=== PATIENT | female | born 1945 | race Caucasian/White ===

== ENCOUNTER → 2016-10-02 | Outpatient (CLI) | payer OTHER ==
[~2016-10-02] MED LIST: APIX1TAB3 PO; CHOL20005 PO; CLC100 PO; CLON0.1T12 PO; CLON0.2T11 PO; CTP/1 PO; CTP1 PO; DILT-115 PO; DILT120C67 PO; DOCU100C31 PO; ELQ25 PO; ENOX1INJ8 SQ; HYDR25TA5 PO; MAGN1SOL7 PO; MCRK20 PO; METO100T14 PO; METO50TA16 PO; OXAP600T PO; PARO1TAB27 PO; POLY1POW2 PO; RXC5 PO; SENN-65 PO; SLWMEC PO; SPIR25TA PO; TRAM-10 PO; ULT50X PO; [UNRECOGNIZED DRUG - CODE] PO; magnesium chloride PO; spironolactone
--- NOTE | 2016-10-03 09:44 | DIAGNOSTIC IMAGING REPORT ---
CT LUNG SCREENING, LOW DOSE WITH COMPUTER-AIDED DETECTION (CAD) CLINICAL HISTORY: ABN FINDING Follow-up pulmonary nodules. COMPARISON STUDY: Abdominal CT dated 03/31/2013. Chest CT dated 06/19/2016. CT DOSE: 87.69 mGy.cm TECHNIQUE: Low-dose helical CT was acquired without intravenous contrast from lung apices to bases and reconstructed at 2.5 mm every 2 mm. CAD was utilized for this study. FINDINGS: Thyroid: Imaged portions of the thyroid gland are normal in appearance. Thoracic aorta: There is evidence carotid calcification of the thoracic aorta, which is normal in caliber and demonstrates standard 3-vessel arch anatomy. Heart: The heart is mildly enlarged and without pericardial effusion. There are scattered coronary artery calcifications. There is diminished attenuation of the cardiac blood pool as compared to the myocardium suggesting anemia. The main pulmonary arteries are mildly dilated suggesting pulmonary artery hypertension. Lungs and pleural spaces: Advanced emphysema is again noted. There is no airspace consolidation typical for pneumonia or pleural effusion. Foci of scarring are again seen in the right middle lobe and lingula. There is a 10 mm pulmonary nodule in the left lower lobe along the posterior cardiac border seen on image #171. This measures 10 mm. There is a 2 mm left lower lobe nodule seen on image #80, and a 3 mm right lower lobe nodule seen on image #67. Scattered 1 to 2 mm nodules are noted throughout the remaining right upper lobe. These are all unchanged from previous. No new nodules are seen. The trachea and central airways are clear. Mediastinum: There is no mediastinal lymphadenopathy. Mandy: Not well assessed without IV contrast. Axilla: Surgical clips are noted in the both axillae and both breasts. There is no axillary lymphadenopathy. Upper abdomen: There is a small hiatal hernia. Hepatic steatosis is observed. An indeterminant 2.3 cm lesion is noted in the left lobe of the liver this is unchanged [address] and is of doubtful significance. Skeletal structures: The skeletal structures are osteopenic. Degenerative change and hyperkyphosis is noted throughout the thoracic spine. There are no lytic or blastic osseous lesions. IMPRESSION: 1. Cardiomegaly and emphysema. 2. Scattered pulmonary nodules measuring up to 10 mm are unchanged in size and distribution from 06/19/2016. Continued follow-up is recommended. 3. No new pulmonary nodules are identified. 4. Additional changes as above. CAD FINDINGS: Nodule 1 Category: 4A Nodule 1 Status: Stable Nodule 1 Description: Solid Nodule 1 Lesion ID: 6 Nodule 1 Slice Number: 67 Nodule 1 Volume (mm3): 377 Nodule 1 Major Oden mm: 10.0 Nodule 1 Minor Oden mm: 7.5 Nodule 2 Status: Stable Nodule 2 Description: Solid Nodule 2 Lesion ID: 8 Nodule 2 Slice Number: 119 Nodule 2 Volume (mm3): 20 Nodule 2 Major Oden mm: 3.7 Nodule 2 Minor Oden mm: 2.5 Nodule 3 Category: 2 Nodule 3 Status: Stable Nodule 3 Description: Solid Nodule 3 Lesion ID: 7 Nodule 3 Slice Number: 113 Nodule 3 Volume (mm3): 9 Nodule 3 Major Oden mm: 2.9 Nodule 3 Minor Oden mm: 2.2 Overall Lung RADS Category: 4A Lung RADS Management Recommendation: Lung-RADS 4A: Continue screening in 3 months. Lung RADS Follow Up Date: 2017-12-30 Lung RADS Nodule ID: [id number] Electronically signed by: Valeriano Alvarado M.D. 10/03/2016 9:42 AM Dictated Date/Time: 10/02/2016 4:53 PM
== END | disposition home or self-care (01) ==
LOC: C.CTS 16:27
PROVIDERS: ATTEND Family Medicine
DX: R91.8 Other nonspecific abnormal finding of lung field (principal); I51.7 Cardiomegaly; J43.9 Emphysema, unspecified

== ENCOUNTER → 2016-10-03 | Outpatient (CLI) | payer OTHER | END | disposition home or self-care (01) | LOC: C.RDSM 16:34 | PROVIDERS: ATTEND Physical Medicine & Rehabilitation Sports Medicine | DX: M17.12 Unilateral primary osteoarthritis, left knee (principal); Z96.659 Presence of unspecified artificial knee joint ==

== ENCOUNTER → 2016-12-26 | Outpatient (CLI) | payer OTHER | END | disposition home or self-care (01) | LOC: C.LAB1850 15:57 | PROVIDERS: ATTEND Internal Medicine Infectious Disease | DX: A49.02 Methicillin resistant Staphylococcus aureus infection, unspecified site (principal) ==

== ENCOUNTER → 2017-01-05 | Outpatient (CLI) | payer OTHER | END | disposition home or self-care (01) | LOC: C.LAB1850 14:47 | PROVIDERS: ATTEND Internal Medicine Infectious Disease | DX: A49.02 Methicillin resistant Staphylococcus aureus infection, unspecified site (principal) ==

== ENCOUNTER → 2017-01-05 | Outpatient (CLI) | payer OTHER ==
--- NOTE | 2017-01-05 15:01 | DIAGNOSTIC IMAGING REPORT ---
CT LUNG SCREENING, LOW DOSE WITH COMPUTER-AIDED DETECTION (CAD) CLINICAL HISTORY: Pulmonary nodule on low-dose lung screening study. Follow-up examination. COMPARISON STUDY: 10/02/2016 CT DOSE: 81.26 mGy.cm TECHNIQUE: Low-dose helical CT was acquired without intravenous contrast from lung apices to bases and reconstructed at 2.5 mm every 2 mm. CAD was utilized for this study. FINDINGS: Thyroid: Imaged portions of the thyroid gland are normal in appearance. Thoracic aorta: The thoracic aorta is normal in course and caliber, noting standard 3 vessel arch anatomy. Heart: The heart is mildly enlarged Lungs and pleural spaces: There are multiple bilateral pulmonary nodules, the largest of which measures 8.5 mm in diameter and is visualized on image #[id number]. These nodules remain unchanged in size when compared the preceding study. Mediastinum: There is no mediastinal lymphadenopathy. Mandy: Clear. Axilla: There are postsurgical changes present within the left breast. Surgical clips are visualized in both axillary regions. Upper abdomen: Partially visualized upper abdominal viscera is within normal limits. Skeletal structures: There are no lytic or blastic osseous lesions. IMPRESSION: Multiple bilateral subcentimeter pulmonary nodules which remain stable. Emphysema. 12 month follow-up is recommended. CAD FINDINGS: Nodule 1 Category: 2 Nodule 1 Status: Stable Nodule 1 Description: Solid Nodule 1 Lesion ID: 6 Nodule 1 Slice Number: [id number] Nodule 1 Volume (mm3): 326 Nodule 1 Major Arnold mm: 11.7 Nodule 1 Minor Arnold mm: 7.4 Nodule 2 Category: 2 Nodule 2 Status: Stable Nodule 2 Description: Solid Nodule 2 Lesion ID: 8 Nodule 2 Slice Number: [id number] Nodule 2 Volume (mm3): 19 Nodule 2 Major Arnold mm: 4.6 Nodule 2 Minor Arnold mm: 3.0 Nodule 3 Category: 2 Nodule 3 Status: New Nodule 3 Description: Solid Nodule 3 Lesion ID: 9 Nodule 3 Slice Number: 130 Nodule 3 Volume (mm3): 10 Nodule 3 Major Arnold mm: 3.6 Nodule 3 Minor Arnold mm: 3.0 Overall Lung RADS Category: 2 Lung RADS Management Recommendation: Lung-RADS 2: Continue annual screening in 12 months. Lung RADS Follow Up Date: 2018-01-05 Lung RADS Nodule ID: [id number] Electronically signed by: Bill Campbell M.D. 01/05/2017 3:00 PM Dictated Date/Time: 01/05/2017 2:42 PM
--- NOTE | 2017-01-18 09:41 | CODING QUERY MEDICAL NECESSITY ---
CQSUPPORTING DIAGNOSIS NEEDED A supporting diagnosis is required for the test/procedure performed on this patient in order for us to be reimbursed by the patient's insurance. Please provide a supporting diagnosis for the following test/procedure listed below next to the test name along with your signature. *If there is no additional diagnosis for this patient that would support the following test/procedure please document that below next to the test/procedure. Test(s)/Procedure(s) that require a supporting diagnosis: DOS 01/05/17 SCREENING FOR LUNG CANCER WITH LOW DOSE COMPUTED TOMOGRAPHY Provider Signature: Date: Thank you Annette Randhawa Health Information Management Once completed, please kindly fax back to [phone] For questions please call [phone]
== END | disposition home or self-care (01) ==
LOC: C.CTS 14:11
PROVIDERS: ATTEND Family Medicine
DX: R91.8 Other nonspecific abnormal finding of lung field (principal); J43.9 Emphysema, unspecified; A49.02 Methicillin resistant Staphylococcus aureus infection, unspecified site; Z87.891 Personal history of nicotine dependence

== ENCOUNTER 2017-02-13 05:15 | Inpatient (IN) | payer OTHER ==
[2017-01-25 09:41] VITALS: BMI 36.0
--- NOTE | 2017-01-25 10:16 | PAT Medication Instructions ---
Service Date Jan 25, 2017. Current Home Medication List Cholecalciferol (Vitamin D3), 2,000 INTUNIT PO QAM Clonidine Hcl (Catapres), 1.5 TAB PO QAM Clonidine Hcl (Catapres), 0.2 MG PO HS Diltiazem Hcl Ext Rel (Tiazac), 240 MG PO QAM Hydrochlorothiazide (Hydrochlorothiazide), 25 MG PO QAM Oxaprozin (Daypro), 0.5 TAB PO QAM Paroxetine (Paxil), 20 MG PO QAM Polyethylene Glycol 3350 (Bulk (Polyethylene Glycol 3350), 17 GM PO QAM Potassium Chloride (Klor-Con), 20 MEQ PO BID [magnesium chloride], 64 MG PO QAM Medication Instructions For Your Scheduled Surgery - Hold the following medications the morning of surgery: Potassium Chloride (Klor-Con), 20 MEQ PO BID Polyethylene Glycol 3350 (Bulk (Polyethylene Glycol 3350), 17 GM PO QAM Oxaprozin (Daypro), 0.5 TAB PO QAM Hydrochlorothiazide (Hydrochlorothiazide), 25 MG PO QAM Cholecalciferol (Vitamin D3), 2,000 INTUNIT PO QAM - Take the following medications the morning of surgery with a sip of water: Paroxetine (Paxil), 20 MG PO QAM Diltiazem Hcl Ext Rel (Tiazac), 240 MG PO QAM Clonidine Hcl (Catapres), 1.5 TAB PO QAM - Take the following medications as scheduled the night before surgery: Potassium Chloride (Klor-Con), 20 MEQ PO BID Clonidine Hcl (Catapres), 0.2 MG PO HS If you have any questions please call us at [phone] or [phone] or [phone]
[2017-01-25 11:00] LABS: BASO % 0.2 %; BASO ABS # 0.01 K/uL (0-0.2); COMPLETE YES; EOS % 0.9 %; HEMATOCRIT 41.6 % (37-47); IG% 0.5 %; LYMPH % 29.2 %; LYMPH ABS # 1.94 K/uL (1.2-3.4); MEAN CELL VOLUME 84.7 fL (80-100); MEAN CORPUSCULAR HEMOGLOBIN 27.9 pg (25-34); MEAN CORPUSCULAR HGB CONC 32.9 g/dl (32-36); MEAN PLATELET VOLUME 10.9 fL (7.4-10.4); MONO % 6.8 %; NEUT % 62.4 %; PLATELET COUNT 269 K/uL (130-400); RED BLOOD COUNT 4.91 M/uL (4.2-5.4); WHITE BLOOD COUNT 6.65 K/uL (4.8-10.8)
[2017-01-25 11:13] LABS: PARTIAL THROMBOPLASTIN RATIO 1.1; PROTHROMBIN TIME (PATIENT) 10.7 SECONDS (9.0-12.0)
[2017-01-25 12:35] LABS: BUN/CREATININE RATIO 16.1 (10-20); CALCIUM 9.6 mg/dl (8.5-10.1); CREATININE 1.2 mg/dl (0.60-1.20); POTASSIUM 3.2 mmol/L (3.5-5.1)
[2017-01-25 12:37] LABS: ALB/GLOB RATIO 0.9 (0.9-2)
--- NOTE | 2017-02-09 07:44 | HISTORY & PHYSICAL EXAMINATION ---
DATE OF ADMISSION: 02/13/2017 ADMISSION HISTORY AND PHYSICAL CHIEF COMPLAINT: Left knee pain times many years. HISTORY OF PRESENT ILLNESS: The patient is here today for a preoperative history and physical. She is scheduled to have her left total knee arthroplasty done with Dr. Min on 02/13/2015. She reports the leg pain in her left knee goes mostly medially and down into her angelo bone. It is aggravated with a long walking and does affect her activities of daily living due to pain. 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 She does not use a cane but does take diaper regularly. Euflexxa recently gave her temporary relief in her left knee. She has had corticosteroids in the past without any significant long lasting effects. She has tried outpatient physical therapy in the past with no significant effects at this point. Due to it affecting a pretty much, although her daily activities and pain everyday, she would like to proceed with an elective left total knee arthroplasty. PAST MEDICAL HISTORY: 1. Anxiety. 2. Osteoarthritis. 3. Asthma. 4. History of bilateral breast cancer. 5. History of elevated liver enzymes. 6. Fatty liver. 7. Hyperlipidemia. 8. Psoriasis. 9. High blood pressure. 10. IBS. 11. Hyperparathyroidism. 12. Hyperplastic colon polyps. 13. Hypopotassemia. 14. 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 15. Chronic nonalcoholic liver disease. 16. Postmenopausal. 17. Status post right total knee arthroplasty. 18. History of prolonged QT interval on EKG back in 1999 at age 54, which has since resolved. 19. History of hypercalcemia. 20. History of incontinence. 21. History of polymyalgia rheumatica. CURRENT MEDICATIONS: 1. Amoxicillin 500 mg 4 capsules p.o. as indicated 1 hour before dental procedures. 2. Clonidine 0.2 mg 1 tab p.o. at bedtime. 3. Vitamin D3 2000 international units 1 tab p.o. daily. 4. Clonidine 0.1 mg 1-1/2 tablets by mouth each morning and clonidine 0.2 mg 1 tab p.o. at bedtime. 5. Cardizem-CD 240 mg for 24 hours, 1 cap p.o. daily. 6. Hydrochlorothiazide 25 mg 1 tab p.o. daily. 7. Magnesium chloride 1 tab p.o. daily. 8. Daypro 600 mg 1/2 tab q.a.m. 9. Paroxetine 20 mg daily. 10. MiraLax 17 grams p.o. daily. 11. Potassium chloride 20 mEq 1 tab p.o. b.i.d. ALLERGIES: 1. AMLODIPINE WHICH CAUSES BRADYCARDIA. 2. ASPIRIN CAUSES UPSET STOMACH. 3. AUGMENTIN CAUSES NAUSEA. 4. CHANTIX CAUSES HEADACHE, NAUSEA AND VIVID DREAMS. 5. DICLOFENAC CAUSES HER TO FEEL WALL "WOBBLY." 6. DHEA - HEART POUNDS, INCREASES BLOOD PRESSURE AND PULSE. 7. EZETIMIBE CAUSES CHILLS AND MYALGIAS. 8. GEMFIBROZIL CAUSES FATIGUE. 9. OLMESARTAN CAUSES COUGH AND FATIGUE. 10. POLLEN CAUSES NASAL CONGESTION. 11. STATINS CAUSES MUSCLE PAIN. 12. TELMISARTAN, FLU-LIKE SYNDROME. 13. VICODIN CAUSES DECREASED URINE OUTPUT. SOCIAL HISTORY: She denies any current use of tobacco, she was a former smoker, she did 2-1/2 cigarettes per day for 32 years, started at age 20 and stopped at age 61. She is currently employed at the school, works as a school nurse. Alcohol - she does drink wine 1-2 times per year. FAMILY HISTORY: Mother had a history of alcoholism, anxiety, atrial fibrillation, breast cancer, cardiac arrest, and high blood pressure. Her father had a history of heart failure, high blood pressure, hypercholesterolemia, and hyperlipidemia. Her sister has a history of breast cancer as well as leukemia. Her maternal aunt also had a history of breast cancer. She had a brother with a history of colon cancer, high blood pressure and panic attacks. Her paternal grandfather had history of cardiac arrest. Her paternal grandmother had history of diabetes. PAST SURGICAL HISTORY: 1. She got bilateral carpal tunnel release in the past. 2. Cataract extraction in 03/24/2015. 3. section in 1975. 4. Left breast lumpectomy in 2011. 5. Parathyroidectomy in June 2016. 6. Right breast lumpectomy. 7. Right knee meniscectomy January of 2006. 8. Right oophorectomy. 9. Right total knee arthroplasty in December of 2008. 10. Laser to her lens in October of 2015. REVIEW OF SYSTEMS: She denies any headaches, migraines, lightheadedness, dizziness, seizures or syncopal episodes. She denies any chest pain or shortness of breath. She denies any weakness. She denies any weight loss or weight gain. She denies any fevers, chills, nausea, vomiting, diarrhea or constipation. She denies any abdominal pain. She denies any shortness of breath, palpitations. Denies any urinary symptoms such as frequency, burning or foul-smelling urine. She denies any recent urinary tract infections. She denies any history of blood clots or phlebitis. She did have some bleeding after a parathyroidectomy, but no bleeding disorders noted. She did not require any blood transfusions. She denies any blurry vision or hearing loss. PHYSICAL EXAMINATION: GENERAL: She is alert and oriented x3. She is in no acute distress. She is a well-dressed, well-nourished female. VITAL SIGNS: Height is 164 cm, weight is 101 kilograms, BMI is 35.4. HEENT: Head is atraumatic, normocephalic. EYES: Extraocular movements intact. Pupils are equal, round and reactive to light. Sclerae are normal. EARS: Hearing is grossly normal with TMs are clear with normal light reflex. Ear canals are clear. NOSE: Normal terminus with bilateral patent nares. THROAT: Oropharynx is clear. Mucous membranes are moist. Good dentition. Uvula midline. NECK: Supple, no lymphadenopathy, no carotid bruits. Trachea is midline. Chest is nontender to palpation. LUNGS: Clear to auscultation bilaterally. No adventitious sounds. No accessory muscle usage. HEART: Regular rate and rhythm, normal S1, S2, no murmur appreciated. ABDOMEN: Soft, nontender, nondistended. Bowel sounds heard in all 4 quadrants. EXTREMITIES: Her left lower extremity reveals distal pulses are 1+. Strength is 5/5 with 1+ MCL laxity of her left knee. Her knee is otherwise ligamentously stable. There is no effusion to the left knee. No previous scars. Medial joint line tenderness with palpation. Range is 0/3/125 degrees. RADIOLOGY IMAGES: X-rays of her left knee show moderate to severe medial compartment arthritis, varus deformity, joint space narrowing and osteophyte formation. Her long leg alignment film demonstrates varus alignment and medial osteophytosis, the hip and ankle looked normal. ASSESSMENT: Degenerative joint disease of her left knee. PLAN: The patient is scheduled for an elective left total knee arthroplasty with Dr. Min on 02/13/2017. Risks and complications of surgery were explained to the patient and include but are not limited to infection, pain, bleeding, scarring, nerve and blood vessel damage, wound problems, weakness, stiffness, incomplete relief of symptoms, hardware failure, loosening, wear, blood clots, embolisms, heart attack, stroke and . All questions were answered, informed consent was obtained. She will have preadmission testing prior to surgery, which she will obtain a CBC, PRP, LFT PT, PTT, type and screen, EKG and preoperative medical clearance from her family physician, Dr. Newell. She will also undergo a chest x-ray if anesthesia feels necessary. She recently had a CT scan of her chest in September 2016 for lung nodules that appears stable. She will use chlorhexidine washes as instructed by infectious disease prior to surgery. She has undergone 3 weekly MRSA nasal swabs that all have been negative. She is currently not a carrier of MRSA. She does not require any preoperative MRSA treatment. SHE IS ALLERGIC TO VICODIN, WHICH CAUSES URINARY RETENTION and she would like to hold off on any Tylenol or hydrocodone while in the hospital. She states that she is able to use Percocet, is fine with morphine or Dilaudid. She likes tramadol and then that works very well for her pain. All questions were answered. Postoperative course was discussed. She would like to either be home with home health or to an inpatient rehab facility. All questions were answered. She will call with any further problems or questions. EFREN
[~2017-02-13] VITALS: Ht 165.1 cm; Wt 99.8 kg
[2017-02-13] VITALS (7 sets, daily range): BP systolic 102–146; BP diastolic 59–89; PULSE 62–81; TEMP 36.4–36.8; O2SAT 92–95; Ht 165.1 cm; Wt 99.8 kg
[~2017-02-13 05:15] MED LIST changes: -APIX1TAB3 PO; -CLC100 PO; -CLON0.1T12 PO; -CTP1 PO; -DILT120C67 PO; -DOCU100C31 PO; -ELQ25 PO; -ENOX1INJ8 SQ; -HYDR25TA5 PO; -MAGN1SOL7 PO; -METO100T14 PO; -METO50TA16 PO; -RXC5 PO; -SENN-65 PO; -SLWMEC PO; -SPIR25TA PO; -TRAM-10 PO; -ULT50X PO; -[UNRECOGNIZED DRUG - CODE] PO
[2017-02-13] MEDS ORDERED: ACETAMINOPHEN 500 MG TAB PO SCH (06:00)
[2017-02-13] MEDS ORDERED: DEXAMETHASONE 4 MG TAB PO SCH (06:00)
[2017-02-13] MEDS ORDERED: LACTATED RINGER'S 1000ML 500 ML IV ONE (06:00)
[2017-02-13] MEDS ORDERED: FAMOTIDINE 20 MG TAB PO SCH (06:00)
[2017-02-13] MEDS ORDERED: CEFAZOLIN 2000 MG/60 ML D5W 60 ML IV SCH (06:00)
[2017-02-13] MEDS ORDERED: CeleBREX 200 MG CAP PO SCH (06:00)
[2017-02-13] MEDS ORDERED: ROPIVACAINE 5MG/ML 30 ML 150 MG, BUPIVACAINE/EPINEPHR 0.5% MPF 30 ML, KETOROLAC TROMETH... INFIL SCH ×7 (06:00)
[2017-02-13] MEDS ORDERED: TRAMADOL HCL 50 MG TAB PO SCH (06:00)
[2017-02-13] MEDS ORDERED: OXYCODONE HCL 10 MG TABCR (OXYCONTIN) PO SCH (06:00)
[2017-02-13] MEDS ORDERED: GABAPENTIN 300 MG CAP PO SCH (06:00)
[2017-02-13] MEDS ORDERED: LACTATED RINGER'S 1000ML 1,000 ML IV SCH ×2 (06:00)
[2017-02-13] MEDS ORDERED: METOCLOPRAMIDE HCL 10 MG TAB PO SCH (06:00)
[2017-02-13] MEDS ORDERED: MIDAZOLAM HCL 1 MG/ML 2ML VIAL ONE ×2 (06:30→07:07)
[2017-02-13] MEDS: TRANEXAMIC ACID INJ 1,000 MG in SODIUM CHLORIDE 0.9% 100ML 100 ML IV SCH (06:30)
[2017-02-13] MEDS ORDERED: FENTANYL CITRATE INJ 50 MCG/1 ML 2 ML VIAL ONE (06:30)
[2017-02-13] MEDS ORDERED: PROPOFOL IV EMULSION 10 MG/ML 20 ML VIAL IV ONE ×3 (06:31→09:24)
[2017-02-13] MEDS ORDERED: BUPIVACAINE 0.5 % 5 MG/1 ML PF 10ML VIAL ONE (06:38)
[2017-02-13] MEDS ORDERED: BUPIVACAINE 0.25% 30 ML VIAL ONE (06:38)
--- NOTE | 2017-02-13 06:38 | History & Physical Bridge Note ---
H&P Re-Evaluation Bridge Note: I have examined the patient, reviewed the History & Physical and in the interval since the performance of the History & Physical I have noted the following changes of clinical significance: No changes noted
[2017-02-13] MEDS ORDERED: BACITRACIN 50000 UNIT VIAL ONE (06:39)
[2017-02-13] MEDS ORDERED: BUPIVACAINE/EPINEPHRINE 0.25% 1:200,000 30 ML VIAL ONE (06:39)
[2017-02-13] MEDS ORDERED: BUPIVACAINE LIPOSOME 1/3% 266 MG/20 ML VIAL INFIL ONE (06:39)
[2017-02-13] MEDS ORDERED: SODIUM CHLORIDE 0.9% PF 50 ML VIAL ONE (06:39)
[2017-02-13] MEDS ORDERED: ORTHO JOINT ANESTHETIC ONE (06:56)
[2017-02-13] MEDS ORDERED: LABETALOL HCL IV 5 MG/ML 20ML IV ONE (07:24)
[2017-02-13] MEDS ORDERED: VANCOMYCIN HCL 1000MG/20ML VIAL ONE (07:30)
[2017-02-13] MEDS ORDERED: ONDANSETRON INJ 2 MG/ML 2 ML VIAL IV PRN ×2 (08:00→10:15)
[2017-02-13] MEDS ORDERED: EpHEDrine SULFATE INJ 50 MG/ML AMP IV PRN (08:00)
[2017-02-13] MEDS ORDERED: ATROPINE SULFATE 0.1 MG/ML 5ML SYR IV PRN (08:00)
[2017-02-13] MEDS ORDERED: FENTANYL CITRATE INJ 50 MCG/1 ML 2 ML VIAL IV PRN (08:00)
[2017-02-13] MEDS ORDERED: EpHEDrine SULFATE 50MG/5ML SYR ONE (08:19)
[2017-02-13] MEDS ORDERED: POVIDONE-IODINE OP SOLN 30 ML BTL TOP ONE (09:32)
[2017-02-13] MEDS ORDERED: BISACODYL 10 MG SUPP PR PRN (10:15)
[2017-02-13] MEDS ORDERED: SOD PHOSPHATE/SOD BIPHOSPHATE ENEMA 132 ML BTL PR PRN (10:15)
[2017-02-13] MEDS ORDERED: MoRPHine SULFATE 2 MG/ML CARP IV PRN (10:15)
--- NOTE | 2017-02-13 10:21 | [facility] Post Operative Brief Note ---
Immediate Operative Summary Operative Date Feb 13, 2017. Pre-Operative Diagnosis Left Knee, Degenerative Joint Disease Post-Operative Diagnosis Same as preoperative Procedure(s) Performed Left Total Knee Arthroplasty, Cemented Surgeon Dr. Jasson Min Material Control Manager Surgeon(s) Liliana Mac PA-C; Jhon Hall, Resident Estimated Blood Loss 20ml Findings medial knee OA Specimens A.) Left Knee Bone and Tissue Drains 0 Anesthesia spinal with sedation Complication(s) None Disposition Recovery Room / PACU
--- NOTE | 2017-02-13 10:25 | [facility] Operative Report ---
Operative Report Operative Date Feb 13, 2017. Pre-Operative Diagnosis Left Knee, Degenerative Joint Disease Post-Operative Diagnosis DJD left knee Procedure(s) Performed Left Total Knee Arthroplasty Surgeon Dr. Jasson Min Literary Writer Surgeon(s) Liliana Mac PA-C; Jhon Hall, Resident Estimated Blood Loss 20ml Findings DJD Specimens A.) Left Knee Bone and Tissue Drains 0 Anesthesia spinal with sedation Complication(s) None Disposition Recovery Room / PACU (stable) Indications Patient is a 72 year old female, with complaints of progressively worsening left knee pain. She has failed all conservative treatment which includes corticosteroid injections, viscosupplementation, physical therapy. She wished to proceed with an elective left total knee arthroplasty. Risks/complications discussed, informed consent obtained. Description of Procedure Patient was taken to the operating room, given spinal anesthesia. She was given 2gm IV Ancef for surgical prophylaxis. Time out performed, prepped and draped in routine sterile fashion. Patient was awakened and taken to the recovery room in stable condition. I was present the entire case, please see Dr. Min's operative report for further detail. I attest to the content of the Intraoperative Record and any orders documented therein. Any exceptions are noted below.
--- NOTE | 2017-02-13 10:37 | Anesthesiology Progress Note ---
Anesthesia Post Op Note Date & Time Feb 13, 2017 at 10:37 Vital Signs Pain Intensity: 0 Vital Signs Past 12 Hours Date Time Temp Pulse Resp B/P (MAP) Pulse Ox O2 Delivery O2 Flow Rate FiO2 02/13/17 10:22 69 20 136/65 92 02/13/17 10:22 64 20 02/13/17 10:18 128/91 02/13/17 10:17 63 16 85/73 95 02/13/17 10:17 61 16 02/13/17 10:13 146/81 02/13/17 10:12 61 16 91 02/13/17 10:12 62 16 02/13/17 10:12 36 60 16 146/81 93 Nasal Cannula 4 02/13/17 05:30 36.8 80 20 127/89 95 Room Air Notes Mental Status: alert / awake / arousable, participated in evaluation Pt Amnestic to Procedure: Yes Nausea / Vomiting: adequately controlled Pain: adequately controlled Airway Patency, RR, SpO2: stable & adequate BP & HR: stable & adequate Hydration State: stable & adequate Neuraxial Anesthesia: was administered, sensory block is resolving Anesthetic Complications: no major complications apparent
--- NOTE | 2017-02-13 11:29 | DIAGNOSTIC IMAGING REPORT ---
LEFT KNEE 1 OR 2 VIEWS ROUTINE CLINICAL HISTORY: Status post total left knee arthroplasty. COMPARISON: Leg length study December 04, 2016. FINDINGS: Alignment of the total left knee arthroplasty is anatomic. There is no periprosthetic fracture or unexpected radiopaque foreign body. Skin nando are present. IMPRESSION: Expected findings following total left knee arthroplasty. Electronically signed by: Tee Jacob M.D. 02/13/2017 11:28 AM Dictated Date/Time: 02/13/2017 11:27 AM
[2017-02-13] MEDS ORDERED: MoRPHine SULFATE 4 MG/ML 1 ML CARP\\VIAL IV PRN ×2 (12:15)
--- NOTE | 2017-02-13 12:43 | Medical Consult ---
Consultation Date of Consultation: Feb 13, 2017. Attending Physician: Jasson Min M.D. Reason for Consultation: Medical management History of Present Illness This is a 72 yo F with PMHx of HTN, HLD, hyperparathyroidism, asthma, osteoarthritis, hx of bilateral breast cancer, WETZEL, polymyalgia rheumatica, anxiety who presented for an elective left total knee arthroplasty with Dr. Min on 02/13/2017. She reports currently doing well, denies any pain. She has slight numbness in her left toes, but feeling is returning. She does not have any drains in the knee, and [place] catheter has been removed. She has not yet been up and walking. Pt typically uses mirilax for chronic constipation once daily at home. Past Medical/Surgical History HTN, HLD, hyperparathyroidism, asthma, osteoarthritis, hx of bilateral breast cancer, WETZEL, polymyalgia rheumatica, anxiety Family History Diabetes mellitus Social History Smoking Status: Former Smoker Smokeless Tobacco Use: No Alcohol Use: none Drug Use: none Housing Status: lives alone Allergies Coded Allergies: Statins (Verified Adverse Reaction, Intermediate, MUSCLE ACHING, 02/13/17) HMG-CoA-R Inhibitors (Verified Adverse Reaction, Mild, STATINS- MUSCLE ACHES, 02/13/17) Acetaminophen (Verified Adverse Reaction, Unknown, decreased urine output , 02/13/17) Amoxicillin (Verified Adverse Reaction, Unknown, nausea, 02/13/17) Ascorbate (Verified Adverse Reaction, Unknown, heart punds, tacchy and headache, 02/13/17) Aspirin (Verified Adverse Reaction, Unknown, upset stomach, 02/13/17) Beta-Carotene (Verified Adverse Reaction, Unknown, heart punds, tacchy and headache, 02/13/17) Casein (Verified Adverse Reaction, Unknown, heart punds, tacchy and headache, 02/13/17) Cholecalciferol (Verified Adverse Reaction, Unknown, heart punds, tacchy and headache, 02/13/17) Clavulanic Acid (Verified Adverse Reaction, Unknown, nausea, 02/13/17) Cupric Oxide (Verified Adverse Reaction, Unknown, heart punds, tacchy and headache, 02/13/17) Diclofenac (Verified Adverse Reaction, Unknown, wobbly, 02/13/17) Docosahexaenoic Acid (DHA) (Verified Adverse Reaction, Unknown, heart punds, tacchy and headache, 02/13/17) Eicosapentaenoic Acid (EPA) (Verified Adverse Reaction, Unknown, heart punds, tacchy and headache, 02/13/17) Ezetimibe (Verified Adverse Reaction, Unknown, chills, myalgia, 02/13/17) Ferrous Bisglycinate (Verified Adverse Reaction, Unknown, heart punds, tacchy and headache, 02/13/17) Folic Acid (Verified Adverse Reaction, Unknown, heart punds, tacchy and headache, 02/13/17) Hydrocodone (Verified Adverse Reaction, Unknown, decreased urine output, ) Iron (Verified Adverse Reaction, Unknown, heart punds, tacchy and headache , 02/13/17) Magnesium Oxide (Verified Adverse Reaction, Unknown, heart punds, tacchy and headache, 02/13/17) Olmesartan (Verified Adverse Reaction, Unknown, cough, fatigue, 02/13/17) POLLEN (Verified Adverse Reaction, Unknown, nasal congestion, 02/13/17) Pyridoxine (Verified Adverse Reaction, Unknown, heart punds, tacchy and headache, 02/13/17) Riboflavin (Verified Adverse Reaction, Unknown, heart punds, tacchy and headache, 02/13/17) Sodium Benzoate (Verified Adverse Reaction, Unknown, heart punds, tacchy and headache, 02/13/17) Telmisartan (Verified Adverse Reaction, Unknown, flu-like symptoms, ) Thiamine (Verified Adverse Reaction, Unknown, heart punds, tacchy and headache, 02/13/17) Varenicline (Verified Adverse Reaction, Unknown, headache, nausea and vivid dreams, 02/13/17) Vitamin B12 (Verified Adverse Reaction, Unknown, heart punds, tacchy and headache, 02/13/17) Vitamin E (Verified Adverse Reaction, Unknown, heart punds, tacchy and headache, 02/13/17) Zinc Oxide (Verified Adverse Reaction, Unknown, heart punds, tacchy and headache, 02/13/17) Uncoded Allergies: RAW PINEAPPLE (Allergy, Unknown, burningin face, flushing down neck, tightness in throat, 01/25/17) AMLIODIPINE (Adverse Reaction, Unknown, bradycardia, 01/25/17) GEMFIBRIZIL (Adverse Reaction, Unknown, extreme fatigue, 01/25/17) Current Inpatient Medications Current Inpatient Medications Medications (Trade) Dose Ordered Sig/David Route Start Time Stop Time Status Last Admin Dose Admin Ropivacaine 150 mg/Bupivacaine HCl/Epinephrine Bitart 30 ml/ Ketorolac Tromethamine 30 mg/Dexamethasone Sodium Phosphate 4 mg/Ketamine HCl 10 mg/Clonidine 100 mcg/Sodium Chloride 30 ml/ Empty Bag 93.2 ml @ 0 mls/hr PREOP INFIL 02/13/17 06:00 02/13/17 18:00 02/13/17 09:31 93.2 MLS/HR Lactated Ringer's 1,000 ml @ 60 mls/hr [id number] IV 02/13/17 06:00 02/13/17 22:39 Cefazolin Sodium 60 ml @ 100 mls/hr PREOP IV 02/13/17 06:00 02/13/17 18:00 02/13/17 06:59 100 MLS/HR Acetaminophen (Tylenol Tab) 1,000 mg PREOP PO 02/13/17 06:00 02/13/17 18:00 02/13/17 06:32 1,000 MG Celecoxib (CeleBREX CAP) 200 mg PREOP PO 02/13/17 06:00 02/13/17 18:00 02/13/17 06:32 200 MG Dexamethasone (Decadron Tab) 8 mg PREOP PO 02/13/17 06:00 02/13/17 18:00 02/13/17 06:30 8 MG Famotidine (Pepcid Tab) 20 mg PREOP PO 02/13/17 06:00 02/13/17 18:00 02/13/17 06:32 20 MG Gabapentin (Neurontin Cap) 300 mg PREOP PO 02/13/17 06:00 02/13/17 18:00 02/13/17 06:31 300 MG Metoclopramide HCl (Reglan Tab) 10 mg PREOP PO 02/13/17 06:00 02/13/17 18:00 02/13/17 06:31 10 MG Oxycodone HCl (Oxycontin Tab) 10 mg PREOP PO 02/13/17 06:00 02/13/17 18:00 02/13/17 06:33 10 MG Tranexamic Acid 1000 mg/Sodium Chloride 110 ml @ 660 mls/hr TODAY@06,0630 IV 02/13/17 06:00 02/13/17 18:00 02/13/17 06:30 660 MLS/HR Tramadol HCl (Ultram Tab) 50 mg PREOP PO 02/13/17 06:00 02/13/17 18:00 02/13/17 06:31 50 MG Lactated Ringer's 1,000 ml @ 15 mls/hr Q24H IV 02/13/17 06:00 02/14/17 05:59 Fentanyl Citrate (Fentanyl Inj) 25 mcg Q5M PRN IV 02/13/17 08:00 02/13/17 13:00 Ondansetron HCl (Zofran Inj) 4 mg ONE PRN IV 02/13/17 08:00 02/13/17 13:00 Ephedrine Sulfate (EpHEDrine SULFATE INJ) 5 mg Q5M PRN IV 02/13/17 08:00 02/13/17 13:00 Atropine Sulfate (Atropine Sulfate 0.1MG/Ml Inj) 0.5 mg Q1M PRN IV 02/13/17 08:00 02/13/17 13:00 Potassium Chloride/Dextrose/ Sod Cl 1,000 ml @ 100 mls/hr Q10H IV 02/13/17 10:10 02/14/17 10:09 UNV Cefazolin Sodium 2000 mg/Dextrose 60 ml @ 100 mls/hr Q8H IV 02/13/17 10:15 02/13/17 18:50 UNV Oxycodone HCl (Roxicodone Immediate Rel Tab) 1 TABLET FOR PAIN RATING... Q4H PRN PO 02/13/17 10:15 02/27/17 10:14 Morphine Sulfate (MoRPHine SULFATE INJ) 2mg for pain 1-5 3mg ... Q2H PRN IV 02/13/17 10:15 02/27/17 10:14 UNV Bisacodyl (Dulcolax Supp) 10 mg DAILY PRN PA 02/13/17 10:15 03/15/17 10:14 Sodium Biphosphate/ Sodium Phosphate (Fleet Enema) 132 ml DAILY PRN PA 02/13/17 10:15 03/15/17 10:14 Docusate Sodium (coLACE CAP) 100 mg BID PO 02/13/17 21:00 03/15/17 20:59 UNV Multivitamins (Multivitamin Tab) 1 tab QAM PO 02/14/17 09:00 03/16/17 08:59 UNV Ondansetron HCl (Zofran Inj) 4 mg Q6H PRN IV 02/13/17 10:15 03/15/17 10:14 Tramadol HCl (Ultram Tab) 1 tablet for pain rating... Q4H PRN PO 02/13/17 10:15 03/15/17 10:14 Dexamethasone (Decadron Tab) 8 mg ONE PO 02/14/17 07:30 02/14/17 07:31 UNV Enoxaparin Sodium (Lovenox Inj) 30 mg Q12H SQ 02/14/17 09:00 03/14/17 08:59 UNV Clonidine HCl (Catapres Tab) 0.15 mg QAM PO 02/14/17 09:00 03/16/17 08:59 UNV Diltiazem HCl (TIAzac CAP) 240 mg QAM PO 02/14/17 09:00 03/16/17 08:59 UNV Paroxetine HCl (pAXil TAB) 20 mg QAM PO 02/14/17 09:00 03/16/17 08:59 UNV Cholecalciferol (Vitamin D Tab) 2,000 inter.unit QAM PO 02/14/17 09:00 03/16/17 08:59 UNV Clonidine HCl (Catapres Tab) 0.2 mg HS PO 02/13/17 21:00 03/15/17 20:59 UNV Polyethylene (Miralax Powder Packet) 17 gm QAM PO 02/14/17 09:00 03/16/17 08:59 UNV Magnesium Chloride (Slow-Mag Tab) 64 mg QAM PO 02/14/17 09:00 03/16/17 08:59 UNV Spironolactone (Aldactone Tab) 50 mg DAILY PO 02/14/17 09:00 03/16/17 08:59 UNV Review of Systems Constitutional: No fever, sweats or chills Eyes: No diplopia, no worsening or blurred vision ENT: normal hearing, no trouble swallowing Respiratory: No cough, sputum, dyspnea at rest or on exertion Cardiovascular: No chest pain, tightness or palpitations Abdomen: No pain, nausea, vomiting, diarrhea or constipation Musculoskeletal: No joint pain, calf pain, swelling Neurologic: No weakness, + numbness in the left lower extremity, is improving, no balance problems Psychiatric: No anxiety or depression Skin: No rash or itch Physical Exam Date Time Temp Pulse Resp B/P (MAP) Pulse Ox O2 Delivery O2 Flow Rate FiO2 02/13/17 11:15 94 Nasal Cannula 2.0 02/13/17 11:15 Nasal Cannula 2.0 02/13/17 11:15 36.5 62 16 104/62 (76) 94 Nasal Cannula 2.0 02/13/17 11:01 113/67 02/13/17 10:59 59 11 92 02/13/17 10:59 59 11 02/13/17 10:56 114/73 02/13/17 10:54 58 10 02/13/17 10:54 56 10 94 02/13/17 10:51 106/61 02/13/17 10:49 61 8 92 02/13/17 10:49 61 8 02/13/17 10:46 123/74 02/13/17 10:44 61 11 02/13/17 10:44 61 11 92 02/13/17 10:41 122/73 02/13/17 10:39 61 13 94 02/13/17 10:39 62 13 02/13/17 10:38 63 16 95 02/13/17 10:38 63 16 02/13/17 10:36 121/71 02/13/17 10:33 54 16 95 02/13/17 10:33 57 16 02/13/17 10:33 36.5 62 18 121/71 (81) 95 Nasal Cannula 2 02/13/17 10:31 107/79 02/13/17 10:28 62 16 02/13/17 10:28 62 16 95 02/13/17 10:26 121/75 02/13/17 10:23 63 13 02/13/17 10:23 64 13 95 02/13/17 10:22 69 20 136/65 92 02/13/17 10:22 64 20 02/13/17 10:18 128/91 02/13/17 10:17 63 16 85/73 95 02/13/17 10:17 61 16 02/13/17 10:13 146/81 6/27/17 10:12 61 16 91 02/13/17 10:12 62 16 02/13/17 10:12 36 60 16 146/81 93 Nasal Cannula 4 02/13/17 05:30 36.8 80 20 127/89 95 Room Air General: awake, alert, no apparent distress, +overweight Head: Normocephalic, atraumatic ENT: PERRL, EOMI, no pharyngeal exudate, mucous membranes moist Chest: Clear to auscultation, on room air, no adventitious breath sounds Cardiac: Regular rate and rhythm, no murmur, no JVD, normal peripheral pulses, good capillary refill Abdominal: NABS x 4 quadrants, soft, nontender to palpation, no rebound, guarding or tenderness Extremities: + Alan wrap overlying the left lower extremity, ice pack overlying knee, dressing appears C/D/I. + Decreased sensation to light touch on left distal extremity. Otherwise extremities with normal inspection, no peripheral edema or erythema, calfs nontender to palpation Psych: Normal mood and affect Neuro: AAO x 3, strength intact bilaterally and related 5/5, no motor deficits, speech is clear, no peripheral sensory deficits Assessment & Plan This is a 72 yo F with PMHx of HTN, HLD, hyperparathyroidism, asthma, osteoarthritis, hx of bilateral breast cancer, WETZEL, polymyalgia rheumatica, anxiety who presented for an elective left total knee arthroplasty with Dr. Min on 02/13/2017. Status post left elective TKA - Pain management with oxycodone 5-10 mg every 4 hours, tramadol 50 mg every 4 hours, morphine IV 2-3 mg every 2 hours, - bowel regimen in place with chronic constipation - anticoagulation per the primary team - PT/OT Hypertension - Continue [employer] diltiazem ER 240 mg PO QAM and clonidine 0.2 mg HS and 0.15 mg QAM spironolactone 50 mg daily, starting tonight - Blood pressure currently stable Hyperlipidemia -Not on statin therapy, check fasting lipid panel with am labs, diet and exercise should be discussed prior to the patient's discharge Hyperparathyroidism - Stable Osteoarthritis - Check vitamin D levels, We'll start vitamin D supplementation if necessary Polymyalgia rheumatica - stable Depression Generalized anxiety disorder -Continue Paxil 20 mg daily DVT prophylaxis: Teds, SCDs, out of bed, anticoagulation per primary team CODE STATUS: Full code Disposition: From home, lives alone, PT OT thania STEVENS Physician Supervision Note: I interviewed and examined the patient. Discussed with Deana Augustine PAC and agree with findings and plan as documented in the note. Any exceptions or clarifications are listed here: None PT is s/p TKA, has history of HTN, hyperparathyroidism, and breast cancer doing well. vitals are noted, car is regular lungs are clear will continue diltiazem clonidine, consider holding spironolactone if BP is low in am calcium is normal in regard to hyperparathyroidism Documented By: Andres Blackmon
[2017-02-13] MEDS: D5W AND 1/2NSS + 20MEQ KCL 1,000 ML IV SCH ×2 (12:46→22:18)
[2017-02-13] MEDS: CEFAZOLIN IV 2,000 MG in DEXTROSE 5% 50ML 50 ML IV SCH ×2 (13:28→22:18)
[2017-02-13] MEDS: OXYCODONE HCL IR 5 MG TAB (IMMEDIATE RELEASE) PO PRN ×2 (15:15→16:28)
--- NOTE | 2017-02-13 17:28 | Orthopedic Progress Note ---
Orthopedic Progress Note Date of Service Feb 13, 2017. Subjective Reports: feeling well, pain controlled w PO medications, Denies: complaints, chest pain, SOB, nausea / vomiting, light headedness, calf pain Additional Notes: Tolerated lunch. Feels much better than previous surgeries. Objective calves soft nontender, N/V intact, capillary refill less than 2 sec., A&O x3, toes mobile Dressing with bloody drainage on lateral side through LEONCIO bandage. Dressings reinforced. Able to independently lift leg off bed today. DP pulse 1+ Date Time Temp Pulse Resp B/P (MAP) Pulse Ox O2 Delivery O2 Flow Rate FiO2 02/13/17 15:02 36.4 67 16 102/59 (73) 94 Nasal Cannula 2.0 02/13/17 14:15 67 18 113/68 (83) 95 02/13/17 13:18 65 16 120/73 (89) 92 Nasal Cannula 2.0 02/13/17 11:45 62 20 102/62 (75) 95 Room Air 02/13/17 11:15 94 Nasal Cannula 2.0 02/13/17 11:15 Nasal Cannula 2.0 02/13/17 11:15 36.5 62 16 104/62 (76) 94 Nasal Cannula 2.0 02/13/17 11:01 113/67 02/13/17 10:59 59 11 92 02/13/17 10:59 59 11 02/13/17 10:56 114/73 02/13/17 10:54 58 10 02/13/17 10:54 56 10 94 02/13/17 10:51 106/61 02/13/17 10:49 61 8 92 02/13/17 10:49 61 8 02/13/17 10:46 123/74 02/13/17 10:44 61 11 02/13/17 10:44 61 11 92 02/13/17 10:41 122/73 02/13/17 10:39 61 13 94 02/13/17 10:39 62 13 02/13/17 10:38 63 16 95 02/13/17 10:38 63 16 02/13/17 10:36 121/71 02/13/17 10:33 54 16 95 02/13/17 10:33 57 16 02/13/17 10:33 36.5 62 18 121/71 (81) 95 Nasal Cannula 2 02/13/17 10:31 107/79 02/13/17 10:28 62 16 02/13/17 10:28 62 16 95 02/13/17 10:26 121/75 02/13/17 10:23 63 13 02/13/17 10:23 64 13 95 02/13/17 10:22 69 20 136/65 92 02/13/17 10:22 64 20 02/13/17 10:18 128/91 02/13/17 10:17 63 16 85/73 95 02/13/17 10:17 61 16 02/13/17 10:13 146/81 02/13/17 10:12 61 16 91 02/13/17 10:12 62 16 02/13/17 10:12 36 60 16 146/81 93 Nasal Cannula 4 02/13/17 05:30 36.8 80 20 127/89 95 Room Air Additional Notes: Post op x-rays stable prosthesis in anatomic alignment. Assessment & Plan Assessment: POD 0 - Left TKA Plan: Reinforce dressings PRN this evening. Lovenox for DVT prophylaxis to start tomorrow - Teds/Foot pumps B/L LE Regular diet Home medications ordered OOB/WBAT LLE with immobilizer/walker Ice to left knee Encouraged exercises in bed Elevation left leg as needed Medicine consulted for post op medical management Will discuss findings with Dr. Min. Plan [facility] to [facility] pending insurance authorization. All questions answered. Will plan to change dressings with Dr. Min tomorrow AM. Discharge Planning Discharge Planning: rehab hospital Pain Management: Ultram, Oxy IR DVT Prophylaxis: TEDs, Lovenox
[2017-02-13] MEDS: DOCUSATE SODIUM 100 MG CAP PO SCH (22:18)
[2017-02-13] MEDS: TRAMADOL HCL 50 MG TAB PO PRN ×2 (22:19→23:19)
[2017-02-13] MEDS: CLONIDINE HCL 0.1 MG TAB PO SCH (22:20)
[2017-02-14] VITALS (7 sets, daily range): BP systolic 123–185; BP diastolic 68–89; PULSE 73–87; TEMP 36.6–37; O2SAT 92–93
[2017-02-14] MEDS: OXYCODONE HCL IR 5 MG TAB (IMMEDIATE RELEASE) PO PRN ×4 (02:25→21:12)
[2017-02-14] MEDS: TRAMADOL HCL 50 MG TAB PO PRN ×4 (05:50→19:13)
[2017-02-14 05:56] LABS: HEMATOCRIT 34.8 % (37-47); MEAN CELL VOLUME 84.9 fL (80-100); MEAN CORPUSCULAR HEMOGLOBIN 26.1 pg (25-34); MEAN CORPUSCULAR HGB CONC 30.7 g/dl (32-36); MEAN PLATELET VOLUME 10.2 fL (7.4-10.4); PLATELET COUNT 252 K/uL (130-400); WHITE BLOOD COUNT 13.77 K/uL (4.8-10.8)
[2017-02-14 06:35] LABS: BUN/CREATININE RATIO 19.3 (10-20); CALCIUM 8.7 mg/dl (8.5-10.1); CREATININE 1.1 mg/dl (0.60-1.20); POTASSIUM 5.2 mmol/L (3.5-5.1)
[2017-02-14 06:39] LABS: CHOLESTEROL/HDL RATIO 4.5
[2017-02-14] MEDS: D5W AND 1/2NSS + 20MEQ KCL 1,000 ML IV SCH (07:11)
[2017-02-14] MEDS ORDERED: DEXAMETHASONE 4 MG TAB PO SCH (07:30)
--- NOTE | 2017-02-14 08:09 | Anesthesiology Progress Note ---
Anesthesia Post Op Note Date & Time Feb 14, 2017 at 08:08 Vital Signs Vital Signs Past 12 Hours Date Time Temp Pulse Resp B/P (MAP) Pulse Ox O2 Delivery O2 Flow Rate FiO2 02/14/17 07:18 36.6 76 16 146/81 (102) 92 Room Air 02/14/17 07:10 Room Air 02/14/17 04:10 36.9 81 16 129/68 (88) 93 Room Air 02/13/17 23:26 Room Air 02/13/17 23:03 36.8 81 19 146/81 (102) 92 Room Air Notes Mental Status: alert / awake / arousable, participated in evaluation Pt Amnestic to Procedure: Yes Nausea / Vomiting: adequately controlled Pain: adequately controlled Airway Patency, RR, SpO2: stable & adequate BP & HR: stable & adequate Hydration State: stable & adequate Neuraxial Anesthesia: was administered, sensory block resolved Anesthetic Complications: no major complications apparent
[2017-02-14] MEDS: MULTIVITAMIN TAB PO SCH (08:52)
[2017-02-14] MEDS: PAROXETINE 20 MG TAB PO SCH (08:52)
[2017-02-14] MEDS: DOCUSATE SODIUM 100 MG CAP PO SCH ×2 (08:52→21:11)
[2017-02-14] MEDS: CLONIDINE HCL 0.1 MG TAB PO SCH ×2 (08:53→21:11)
[2017-02-14] MEDS: MAGNESIUM CHLORIDE 64MG DELAYED REL TAB PO SCH (08:53)
[2017-02-14] MEDS: DILTIAZEM HCL 120 MG EXT REL CAP PO SCH (08:54)
[2017-02-14] MEDS: POLYETHYLENE (MIRALAX) 17 GM PACK PO SCH (08:55)
[2017-02-14] MEDS: ENOXAPARIN 30 MG/0.3 ML SYR SQ SCH ×2 (08:55→21:12)
[2017-02-14] MEDS: SPIRONOLACTONE 25 MG TAB PO SCH (08:55)
[2017-02-14] MEDS: CHOLECALCIFEROL 1000 INTER.UNIT TAB PO SCH (08:55)
--- NOTE | 2017-02-14 09:55 | Orthopedic Progress Note ---
Orthopedic Progress Note Date of Service Feb 14, 2017. Subjective Post OP Day: 1 Reports: feeling well, pain controlled w PO medications, Denies: complaints, chest pain, SOB, nausea / vomiting, light headedness, calf pain Additional Notes: Discussed pain control. Discussed oozing from incision. States very pleased with how things are going. Objective calves soft nontender, N/V intact, capillary refill less than 2 sec., incision C /D/I, A&O x3, toes mobile Changed dressings this morning. Incision clean, dry, intact. Cleansed skin around incision with sterile saline wipe. Dressings with bloody saturation. Silverlon dressing saturated with blood. New Silverlon dressing applied with clean technique and reinforced with 4x4's and ABD and new LEONCIO bandage. Distal pulses 1+. No hematoma or effusion of left knee. [place] intact. Date Time Temp Pulse Resp B/P (MAP) Pulse Ox O2 Delivery O2 Flow Rate FiO2 02/14/17 07:18 36.6 76 16 146/81 (102) 92 Room Air 02/14/17 07:10 Room Air 02/14/17 04:10 36.9 81 16 129/68 (88) 93 Room Air 02/13/17 23:26 Room Air 02/13/17 23:03 36.8 81 19 146/81 (102) 92 Room Air 02/13/17 20:00 Room Air 02/13/17 15:02 36.4 67 16 102/59 (73) 94 Nasal Cannula 2.0 02/13/17 14:15 67 18 113/68 (83) 95 02/13/17 13:18 65 16 120/73 (89) 92 Nasal Cannula 2.0 02/13/17 11:45 62 20 102/62 (75) 95 Room Air 02/13/17 11:15 94 Nasal Cannula 2.0 02/13/17 11:15 Nasal Cannula 2.0 02/13/17 11:15 36.5 62 16 104/62 (76) 94 Nasal Cannula 2.0 02/13/17 11:01 113/67 02/13/17 10:59 59 11 92 02/13/17 10:59 59 11 02/13/17 10:56 114/73 02/13/17 10:54 58 10 02/13/17 10:54 56 10 94 02/13/17 10:51 106/61 02/13/17 10:49 61 8 92 02/13/17 10:49 61 8 02/13/17 10:46 123/74 02/13/17 10:44 61 11 02/13/17 10:44 61 11 92 02/13/17 10:41 122/73 02/13/17 10:39 61 13 94 02/13/17 10:39 62 13 02/13/17 10:38 63 16 95 02/13/17 10:38 63 16 02/13/17 10:36 121/71 02/13/17 10:33 54 16 95 02/13/17 10:33 57 16 02/13/17 10:33 36.5 62 18 121/71 (81) 95 Nasal Cannula 2 02/13/17 10:31 107/79 02/13/17 10:28 62 16 02/13/17 10:28 62 16 95 02/13/17 10:26 121/75 02/13/17 10:23 63 13 02/13/17 10:23 64 13 95 02/13/17 10:22 69 20 136/65 92 02/13/17 10:22 64 20 02/13/17 10:18 128/91 02/13/17 10:17 63 16 85/73 95 02/13/17 10:17 61 16 02/13/17 10:13 146/81 02/13/17 10:12 61 16 91 02/13/17 10:12 62 16 02/13/17 10:12 36 60 16 146/81 93 Nasal Cannula 4 Laboratory Results 24 Hours: Test 02/14/17 05:33 Hematocrit 34.8 % Hemoglobin 10.7 g/dL Assessment & Plan Assessment: 1. POD 1 - Left TKA 2. Acute blood loss anemia Plan: Dr. Min saw and evaluated patient as well. Reinforce dressings PRN today. Lovenox for DVT prophylaxis - Teds/Foot pumps B/L LE. Regular diet Home medications ordered OOB/WBAT LLE with immobilizer/walker Ice to left knee Encouraged exercises in bed Elevation left leg as needed Medicine consulted for post op medical management - appreciate input All questions answered. Will recheck later this afternoon. Discussed pain medication and encouraged her to take the oxycodone and alternate with tramadol every 2-3 hours. She understands and agrees with current medication regimen. [facility] pending insurance authorization/bed availability. Plan for possible discharge on 02/15/17. Discharge Planning Discharge Planning: rehab hospital Pain Management: Ultram, Oxy IR DVT Prophylaxis: TEDsBonnienox
[2017-02-14] MEDS ORDERED: RXC5 PO (09:58)
[2017-02-14] MEDS ORDERED: ULT50X PO (09:58)
[2017-02-14] MEDS ORDERED: CLC100 PO (09:58)
[2017-02-14] MEDS ORDERED: ENOX1INJ8 SQ (09:58)
--- NOTE | 2017-02-14 10:04 | Discharge Instructions ---
Discharge Instructions Date of Service Feb 14, 2017. Admission Reason for Admission: Left Knee Degenerative Joint Disease Discharge Discharge Diagnosis / Problem: left knee DJD Discharge Goals Goal(s): Decrease discomfort, Improve function, Increase independence Activity Recommendations Activity Level: Assistance Required Therapies: Physical Therapy, Weight Bearing Status (WBAT LLE), Occupational Therapy Weightbearing Status: Left weightbearing (as tolerated) . Additional Information Patient informed of condition: Yes Advance Directives: No DNR: No Level of Care: Acute Rehab Communicable Disease: No Prognosis: Improving Alejo Catheter: No Instructions / Follow-Up Instructions / Follow-Up New Medicine: * You will likely be taking one or more of these medications: 1. Lovenox - You will be on Lovenox for 4 weeks after surgery to prevent blood clots. 2. Oxycodone IR - Take, as directed, when you need it, every four to six hours to control your pain. 3. Tramadol - take, as directed, when you need it, every four to six hours to control your pain 4. Colace & Senokot - Take to prevent constipation which can be caused by narcotics. These can be bought [id number] at the pharmacy * The most common side effects of pain medicine and iron are nausea and constipation. If nausea or constipation is too much of a problem or if you have any questions about your new medicines or doses, call [facility] at . We will try to help you manage these issues. VERY IMPORTANT TO READ AND REVIEW" Blood Clots and Blood Thinning Medicine: * You are given Lovenox during the immediate post-operative period to lessen the risk of blood clots forming in your legs and/or lungs. Lovenox is usually given for four weeks after surgery. * You need to get your blood count/platelet count checked every Sunday for four weeks or as directed. Physical Therapy: * Do your physical therapy at home. These are the exercises you learned while in the hospital (quad sets, leg raises, calf pumps, gluteal squeezes, knee bending, and heel props.) You should do these exercises 3-4 times per day. * You will either go to inpatient rehab ([facility]), home with Home Therapy and nursing or home with outpatient rehab. You should do rehab with the therapist 2-3 times per week. You should do therapy on your own daily. * You may bear full weight on your leg with crutches or walker unless otherwise advised. Home Exercise: * You were shown a series of exercises (heel props, heel slides, etc.) in the hospital. Do these exercises three to four times each day including the exercises you were shown in physical therapy. Walking: * You may be up for short periods of time. Standing and walking for 1-2 hours at a time is usually okay. You should not stand or walk for excessive periods of time as this may cause increased pain and swelling. SELF CARE INSTRUCTIONS AFTER TOTAL KNEE REPLACEMENT A. You may need to continue a physical therapy program after discharge from the hospital. There are several options available to you. Your doctor will assist you in selecting the best one for you. 1. An out-patient facility 2 to 3 times a week for therapy or home therapy. 2. Continue working on all exercises taught to you in the hospital. Your goals should be to increase bending of your knee to 90 degrees and beyond and to fully straighten your knee. B. Your therapist will notify you when you are able to progress from a walker to a cane. C. Wear TEDS as much as possible.~ They may be removed at night for laundering. D. Do not place a pillow behind your knee when resting. A pillow at your ankle is okay. E. Ice your knee 15-20 minutes every 2-3 hours and elevate it above the level of your heart. F. You may shower on the fourth day after surgery using regular soap and water. Do not submerge until the wound is completely healed (approximately 2 weeks ). Until the fourth day after surgery, cover the incision/bandage with a bag or plastic wrap. G. Anyone who is touching your surgical incision area should wash their hands and wear gloves. H. Keep your incision covered with gauze pads under the DEBRA hose until it is dry. VERY IMPORTANT TO READ AND REVIEW A. YOU WILL BE GIVEN AN ORDER AT DISCHARGE FOR PT/INR (BLOOD WORK). PLEASE HAVE THIS DONE INSTRUCTED. PLEASE CALL OUR OFFICE AFTER YOUR BLOODWORK IS COMPLETE SO WE CAN TRACK YOUR RESULTS. IF YOU ARE GOING TO OUTPATIENT PHYSICAL THERAPY, YOU WILL NEED TO GO TO OUTPATIENT TESTING TO HAVE IT DRAWN. B. There are a few signs you need to watch for after you are home. Call [facility] if you notice any of the followin. Increased severe knee pain. Some pain is expected especially when you exercise. 2. Increased swelling in your leg or knee; pain or swelling of the calf muscle in either lower leg. 3. Any fluid drainage from the incision. 4. Shortness of breath or chest pain. 5. Numbness and tingling in the surgical extremity C. Please call [facility] at if you have any concerns or questions about your operation or recovery. The doctor or his nurse will return your call promptly. D. Do not have any elective dental work or other elective procedures done for 6 weeks after your knee replacement. When you have any invasive procedure (dental cleaning, extraction, colonoscopy etc) performed, you will need to take antibiotics to prevent infection from developing in your artificial joint. Tell your other health care providers you have an artificial joint. My office will supply you with further information and the antibiotics. Call your doctor if: * Temperature above 101 degrees F. * Pain not relieved by pain medicine ordered. * Increased drainage or redness from incision. * Notify your doctor with any questions or concerns. Follow-up Visit: You will follow-up with Dr. Min 10-14 days after surgery. The office number is . * You have a follow up appointment scheduled with Dr. Min on 02/26/17 at 12:45 p.m. Avoid all tobacco products. If you need help to stop smoking, call [place] at . This is a free call. Current Hospital Diet Patient's current hospital diet: Regular Diet Discharge Diet Recommended Diet: Regular Diet Procedures Procedures Performed: Left Total Knee Arthroplasty, Cemented Pending Studies Studies pending at discharge: no Physician Orders On Transfer Dressing Changes: Keep Silverlon dressing in place x 5 more days. May change dressing daily as needed. May keep open to air when wound dry. Okay to start to shower on POD 4 ; do not scrub or soak incision. Pat incision dry. Vital Signs: per routine Additional Orders: CBC with platelet count weekly (q Sunday) while on Lovenox Laboratory Results Lipid Panel Test 02/14/17 05:33 Range/Units Triglycerides Level 93 0-150 mg/dl Cholesterol Level 205 H 0-200 mg/dl HDL Cholesterol 46 mg/dl Cholesterol/HDL Ratio 4.5 LDL Cholesterol, Calculated 140 mg/dl Medical Emergencies . Who to Call and When: Medical Emergencies: If at any time you feel your situation is an emergency, please call 911 immediately. . Non-Emergent Contact Non-Emergency issues call your: Surgeon Call Non-Emergent contact if: temperature is above 101, your pain is not controlled, wound has increased drainage, wound has increased redness, wound has increased pain, you have any medication questions . . "Provider Documentation" section prepared by Liliana Mac. . Core Measure Problem Core Measures: None [place] Drug Monitoring Program Search Results: patient reviewed within database, no issues identified
--- NOTE | 2017-02-14 12:34 | [facility] Operative Report ---
Operative Report Operative Date Feb 14, 2017. Pre-Operative Diagnosis Left Knee, Degenerative Joint Disease Post-Operative Diagnosis DJD left knee Procedure(s) Performed same Surgeon Dr. Jasson Min [employer]led [employer] Worker Surgeon(s) Liliana Mac PA-C; Jhon Hall, Resident Estimated Blood Loss 20ml Findings medial grade 4 chondrosis, osteophytes Specimens A.) Left Knee Bone and Tissue Drains 0 Anesthesia spinal with sedation Complication(s) None Disposition Recovery Room / PACU (stable) Indications 72 yr old female with left knee arthritis, varus, refractory to non operative treatment. Description of Procedure Patient identified as Kylie Durham. Time out done. Marked site with my initials. Anesthetic administered. Positioned supine. Bump under hip and calf. Preop antibiotics given. Exam uunnder anesthesia range 0/7/130. Stable ligaments. Dvt prophylaxis with mechanical devices and lovenox post op. Routine prep and drape. Limb exsanguinated with eshmark. Tourniquet inflated to 275mmhg. Midline incision. Medial parapatellar arthrotomy. Synovial reflection laterally divided. osteophytes excised. Deficient medial meniscus excised. cruciates and meniscus excised. Extensile medial release from tibia. Knee subluxated. Intramedullary alignment on tibia. Zero degree block. 10mm lat and 2mm medial. Alignment zayra confirmed. Sized to 3. Intramedullary zayra femur. 5 deg valgus. 12mm resection. Epicondylar axis marked. Extension gap 10mm, lax lat. Femur sized to 3, pin holes match axis. 4 in 1 block for cuts. flexion gap 10mm, lax lateral. Further medial release and resection of uncovered bone medial tibia, upsize to 12.5mm poly with good stability. Box cut made with lateralized jig. posterior osteophytes removed.. Trial components tibia and femur after aligning tibia plate, drill and punch keel. Tibia lateralized. patella 21.5mm thick. Cut made to [id number] bone. residual was 13. 38 patella drilled, distal and medial. good patellar tracking. Bone surfaces irrigated, canals plugged with bone. 2 bags simplex P with Vancomycin 2 gms per bag (history of MRSA). Components cemented in place and held till cement hardened. Orthomix injected. Betadine lavage. extra cement removed. tourniquet let down. no significant bleeding. Stability checked. 12.5 final poly inserted. Trace hyperext. Stable varus valgus in full extension, trace LCL at 30 and 90 degrees flexion. Composite patella thickness 21.5mm, gravity assisted flexion =120+. Arthrotomy closed with 1 vicryl and 2 fiberwire. Layered subqutaneous closure with o and 2 -0 vicryl. Tamie and silverlon dressing plus gauze and Alan. To recovery in stable condition. No family. Components J&J PFC sigma RP. 3 femur, 3 tibia, 38 patella, 12.5 poly. bone for specimen, counts correct EBL 20cc. standard TKA rehab. Tourniquet down after cement hardened, 110min. Knee irrigated, hemostatsis. I attest to the content of the Intraoperative Record and any orders documented therein. Any exceptions are noted below.
--- NOTE | 2017-02-14 16:01 | Progress Note ---
Subjective Date of Service: Feb 14, 2017. Subjective Pt evaluation today including: conversation w/ patient, physical exam, chart review, lab review, review of inpatient medication list seen as f/u consultation, known to me from taking care of her son years ago. no new complaints. feeling pretty good overall, pain well controlled. ROS otherwise negative except for as above Review of Systems ROS otherwise negative except for as above Objective Vital Signs Date Time Temp Pulse Resp B/P (MAP) Pulse Ox O2 Delivery O2 Flow Rate FiO2 02/14/17 15:55 36.9 87 16 185/89 (121) 93 Room Air 02/14/17 11:20 37.0 79 16 123/76 (92) 92 02/14/17 07:18 36.6 76 16 146/81 (102) 92 Room Air 02/14/17 07:10 Room Air 02/14/17 04:10 36.9 81 16 129/68 (88) 93 Room Air 02/13/17 23:26 Room Air 02/13/17 23:03 36.8 81 19 146/81 (102) 92 Room Air 02/13/17 20:00 Room Air Physical Exam General Appearance: no apparent distress Eyes: EOMI ENT: hearing grossly normal Neck: trachea midline Respiratory/Chest: no respiratory distress, no accessory muscle use Extremities: normal range of motion Neurologic/Psychiatric: adjudication specialist II-XII nml as tested, alert, normal mood/affect Skin: normal color, warm/dry Laboratory Results Last 24 Hours Test 02/14/17 05:33 White Blood Count 13.77 K/uL Red Blood Count 4.10 M/uL Hemoglobin 10.7 g/dL Hematocrit 34.8 % Mean Corpuscular Volume 84.9 fL Mean Corpuscular Hemoglobin 26.1 pg Mean Corpuscular Hemoglobin Concent 30.7 g/dl RDW Standard Deviation 47.1 fL RDW Coefficient of Variation 15.4 % Platelet Count 252 K/uL Mean Platelet Volume 10.2 fL Sodium Level 140 mmol/L Potassium Level 5.2 mmol/L Chloride Level 107 mmol/L Carbon Dioxide Level 25 mmol/L Anion Gap 8.0 mmol/L Blood Urea Nitrogen 21 mg/dl Creatinine 1.10 mg/dl Est Creatinine Clear Calc Drug Dose 55.7 ml/min Estimated GFR () 58.9 Estimated GFR (Non- 50.8 BUN/Creatinine Ratio 19.3 Random Glucose 154 mg/dl Calcium Level 8.7 mg/dl Triglycerides Level 93 mg/dl Cholesterol Level 205 mg/dl HDL Cholesterol 46 mg/dl LDL Cholesterol, Calculated 140 mg/dl VLDL Cholesterol, Calculated 19 mg/dl Cholesterol/HDL Ratio 4.5 25-Hydroxy Vitamin D Total 52.5 ng/ml Assessment and Plan This is a 72 yo F with PMHx of HTN, HLD, hyperparathyroidism, asthma, osteoarthritis, hx of bilateral breast cancer, WETZEL, polymyalgia rheumatica, anxiety who presented for an elective left total knee arthroplasty with Dr. Min on 02/13/2017. Status post left elective TKA - Pain management with oxycodone 5-10 mg every 4 hours, tramadol 50 mg every 4 hours, morphine IV 2-3 mg every 2 hours, - bowel regimen in place with chronic constipation - anticoagulation per the primary team - PT/OT - doing well, dispo per primary team Hypertension - Continue FARM BOSS diltiazem ER 240 mg PO QAM and clonidine 0.2 mg HS and 0.15 mg QAM spironolactone 50 mg daily - Blood pressure reasonable readings for situation. no further intervention just follow for now Hyperlipidemia -with lipid panel noted + age + HTN, would likely benefit from moderate statin - - will d/w pt and then likely defer to PCP since he would have ongoing monitoring responsibilities/etc Hyperparathyroidism - Stable, Ca good ranges Osteoarthritis - pain controlled Polymyalgia rheumatica - stable, no complaints of significant pain Depression Generalized anxiety disorder -Continue Paxil 20 mg daily DVT prophylaxis: Teds, SCDs, out of bed, anticoagulation per primary team CODE STATUS: Full code Disposition: From home, lives alone, PT OT evals
--- NOTE | 2017-02-14 17:25 | Progress Note ---
Progress Note Date of Service Feb 14, 2017. Progress Note No bleeding, pain controlled
[2017-02-15] MEDS: TRAMADOL HCL 50 MG TAB PO PRN ×3 (00:04→10:04)
[2017-02-15 06:03] LABS: PARTIAL THROMBOPLASTIN RATIO 1.1
[2017-02-15 06:25] VITALS: BP 166/83; PULSE 78; TEMP 37.1; O2SAT 90
[2017-02-15] MEDS: OXYCODONE HCL IR 5 MG TAB (IMMEDIATE RELEASE) PO PRN ×2 (07:23→12:55)
[2017-02-15] MEDS: POLYETHYLENE (MIRALAX) 17 GM PACK PO SCH (07:36)
[2017-02-15] MEDS: CHOLECALCIFEROL 1000 INTER.UNIT TAB PO SCH (07:37)
[2017-02-15] MEDS: DILTIAZEM HCL 120 MG EXT REL CAP PO SCH (07:38)
[2017-02-15] MEDS: MAGNESIUM CHLORIDE 64MG DELAYED REL TAB PO SCH (07:38)
[2017-02-15] MEDS: DOCUSATE SODIUM 100 MG CAP PO SCH (07:39)
[2017-02-15] MEDS: PAROXETINE 20 MG TAB PO SCH (07:39)
[2017-02-15] MEDS: MULTIVITAMIN TAB PO SCH (07:41)
[2017-02-15] MEDS: CLONIDINE HCL 0.1 MG TAB PO SCH (07:41)
[2017-02-15] MEDS: SPIRONOLACTONE 25 MG TAB PO SCH (07:42)
[2017-02-15] MEDS: ENOXAPARIN 30 MG/0.3 ML SYR SQ SCH (07:43)
--- NOTE | 2017-02-15 08:11 | Orthopedic Progress Note ---
Orthopedic Progress Note Date of Service Feb 15, 2017. Subjective Post OP Day: 2 Reports: feeling well, pain controlled w PO medications, Denies: complaints, chest pain, SOB, nausea / vomiting, calf pain Additional Notes: States pain medication regimen is working much better. Complaining of distention in abdomen today. Has chronic constipation. Passing gas. Objective calves soft nontender, N/V intact, capillary refill less than 2 sec., dressing C /D/I, incision C/D/I, A&O x3, toes mobile Silverlon in place, nando retained, ecchymosis around leg, mild distal edema, distal pulses 1+. Abdomen soft, normal bowel sounds present in all bowel sounds. Mild distension. Nontender abdomen with palpation. Date Time Temp Pulse Resp B/P (MAP) Pulse Ox O2 Delivery O2 Flow Rate FiO2 02/15/17 06:25 37.1 78 16 166/83 (110) 90 Room Air 02/15/17 00:00 Room Air 02/14/17 22:51 36.9 73 18 147/77 (100) 92 Room Air 02/14/17 16:44 145/75 (98) 02/14/17 16:16 80 153/80 (104) 02/14/17 15:55 36.9 87 16 185/89 (121) 93 Room Air 02/14/17 15:30 Room Air 02/14/17 11:20 37.0 79 16 123/76 (92) 92 Assessment & Plan Assessment: 1. POD 2 - Left TKA 2. Acute blood loss anemia Plan: Apply new Silverlon dressing today. D/C immobilizer today has good quad/leg control Continue Lovenox for DVT prophylaxis - Teds/Foot pumps B/L LE. Tolerating Regular diet Bowel regimen as ordered. Patient aware. Home medications ordered - DayPro held OOB/WBAT LLE with immobilizer/walker Ice to left knee Encouraged exercises in bed Elevation left leg as needed Medicine consulted for post op medical management - appreciate input Pain medication regimen working much better. Discharge to [facility] today. Discharge Planning Discharge Planning: rehab hospital Pain Management: Ultram, Oxy IR DVT Prophylaxis: TEDs, Lovenox
[2017-02-15 12:26] VITALS: BP 166/83; PULSE 78; TEMP 37.1; O2SAT 90
--- NOTE | 2017-02-15 12:52 | Progress Note ---
Progress Note Date of Service Feb 15, 2017. Progress Note for d/c to [facility] - tried to see multiple times but was in the bathroom medically appears stable, hyperkalemia likely was from K in IVF - simply repeat BMP tomorrow for completeness -would ask that lipid panel is forwarded to PCP for review - was unable to discuss with pt - see yesterday's notes for more details
--- NOTE | 2017-02-15 15:37 | Discharge Summary ---
Discharge Summary Date of Service Feb 15, 2017. Discharge Summary Admission Date: Feb 13, 2017 at 06:35 Discharge Date: Feb 15, 2017 Discharge Disposition: Rehab ([facility]) Principal Diagnosis: DJD left knee Secondary Diagnoses/Problems: Chronic constipation, Anxiety, HTN, hyperlipidemia, hyperparathyroidism Procedures: Left Total Knee Arthroplasty Consultations: Hospitalist consult Pending Studies/Follow-Up: You have a follow up appointment scheduled with Dr. Min on 02/26/17 at 12: 45 p.m. You have an outpatient physical therapy appointment on 02/26/17 at 2:30 p.m. Please call if you need to reschedule or move your appointment up for physical therapy. Medication Reconciliation New Medications: Enoxaparin Sodium (Lovenox) 30 Mg/0.3 Ml Inj 30 MG SQ Q12 for 28 Days, SYR Docusate Sodium (Docusate Sodium) 100 Mg Cap 100 MG PO BID for 30 Days, #60 CAP Oxycodone HCl (Oxycodone HCl) 5 Mg Tab 5-10 MG PO Q4H PRN for Pain, #30 TAB Tramadol HCl (Tramadol HCl) 50 Mg Tab 50-100 MG PO Q4H PRN for Pain, #30 TAB Continued Medications: Cholecalciferol (Vitamin D3) 2,000 Unit Tab 2000 INTUNIT PO QAM Clonidine Hcl (Catapres) 0.1 Mg Tab 1.5 TAB PO QAM, TAB Clonidine Hcl (Catapres) 0.2 Mg Tab 0.2 MG PO HS, TAB Diltiazem Hcl Ext Rel (Tiazac) 240 Mg Capcr 240 MG PO QAM, CAP Paroxetine (Paxil) 20 Mg Tab 20 MG PO QAM Polyethylene Glycol 3350 (Bulk (Polyethylene Glycol 3350) 1 Pow Pow 17 GM PO QAM for 30 Days, #527 GM 11 Refills [magnesium chloride] () 64 MG PO QAM [spironolactone] () 50mg 50 DAILY Discontinued Medications: Oxaprozin (Daypro) 600 Mg Tab 0.5 TAB PO QAM for 30 Days, #15 TAB 2 Refills Hospital Course Patient was admitted to the [facility] on 02/13/17 after undergoing a left Total Knee Arthroplasty by Dr. Min on 02/13/17. Her procedure was done with spinal anesthesia. She was given IV Ancef 2gm prior to surgery which was continued for 24 hours post operatively. She tolerated the procedure well without any intra-operative complications. X-rays were taken of her operative knee in PACU and showed a stable prothesis in anatomic alignment. She was allowed out of bed, weight bear as tolerated of her left lower extremity with a knee immobilizer and the assistance of a walker. She tolerated a regular diet post operatively. A Hospitalist consult was placed for post op medical management. Her home medications were continued appropriately. Oral and IV pain medication was prescribed. Her pain was well controlled with Tramadol and Roxicet post operatively. Lovenox was ordered post operatively for DVT prophylaxis and was started on POD 1, along with DEBRA stockings and AV impulse boots. She did have some oozing of her incision of her left knee noticed on day of surgery, her dressings were reinforced with ABD' s and LEONCIO bandages. Her dressings were changed on POD 1 and a new Silverlon dressing was applied. Her dressings remained dry and intact. On POD 2 her dressing was removed, incision was evaluated and was clean, dry, intact. Her knee immobilizer was discontinued on POD 2 due to good quad control. She was seen and evaluated during her hospital stay by PT and OT. She was seen by Case management and she requested [facility] for discharge. Insurance authorization was obtained and bed available to [facility] on POD 2. On POD 2 , she complained of some abdominal distention and no bowel movement since Sunday , bowel regimen ordered and explained to patient and nursing. She was stable for discharge on 02/13/17 from ortho and medical standpoing and was discharged to [facility] in stable condition. Total time spent on discharge = This includes examination of the patient, discharge planning, medication reconciliation, and communication with other providers. Discharge Instructions Date of Service Feb 14, 2017. Admission Reason for Admission: Left Knee Degenerative Joint Disease Discharge Discharge Diagnosis / Problem: left knee DJD Discharge Goals Goal(s): Decrease discomfort, Improve function, Increase independence Activity Recommendations Activity Level: Assistance Required Therapies: Physical Therapy, Weight Bearing Status (WBAT LLE), Occupational Therapy Weightbearing Status: Left weightbearing (as tolerated) . Additional Information Patient informed of condition: Yes Advance Directives: No DNR: No Level of Care: Acute Rehab Communicable Disease: No Prognosis: Improving Alejo Catheter: No Instructions / Follow-Up Instructions / Follow-Up New Medicine: * You will likely be taking one or more of these medications: 1. Lovenox - You will be on Lovenox for 4 weeks after surgery to prevent blood clots. 2. Oxycodone IR - Take, as directed, when you need it, every four to six hours to control your pain. 3. Tramadol - take, as directed, when you need it, every four to six hours to control your pain 4. Colace & Senokot - Take to prevent constipation which can be caused by narcotics. These can be bought [id number] at the pharmacy * The most common side effects of pain medicine and iron are nausea and constipation. If nausea or constipation is too much of a problem or if you have any questions about your new medicines or doses, call [facility] at . We will try to help you manage these issues. VERY IMPORTANT TO READ AND REVIEW" Blood Clots and Blood Thinning Medicine: * You are given Lovenox during the immediate post-operative period to lessen the risk of blood clots forming in your legs and/or lungs. Lovenox is usually given for four weeks after surgery. * You need to get your blood count/platelet count checked every Sunday for four weeks or as directed. Physical Therapy: * Do your physical therapy at home. These are the exercises you learned while in the hospital (quad sets, leg raises, calf pumps, gluteal squeezes, knee bending, and heel props.) You should do these exercises 3-4 times per day. * You will either go to inpatient rehab ([facility]), home with Home Therapy and nursing or home with outpatient rehab. You should do rehab with the therapist 2-3 times per week. You should do therapy on your own daily. * You may bear full weight on your leg with crutches or walker unless otherwise advised. Home Exercise: * You were shown a series of exercises (heel props, heel slides, etc.) in the hospital. Do these exercises three to four times each day including the exercises you were shown in physical therapy. Walking: * You may be up for short periods of time. Standing and walking for 1-2 hours at a time is usually okay. You should not stand or walk for excessive periods of time as this may cause increased pain and swelling. SELF CARE INSTRUCTIONS AFTER TOTAL KNEE REPLACEMENT A. You may need to continue a physical therapy program after discharge from the hospital. There are several options available to you. Your doctor will assist you in selecting the best one for you. 1. An out-patient facility 2 to 3 times a week for therapy or home therapy. 2. Continue working on all exercises taught to you in the hospital. Your goals should be to increase bending of your knee to 90 degrees and beyond and to fully straighten your knee. B. Your therapist will notify you when you are able to progress from a walker to a cane. C. Wear TEDS as much as possible.~ They may be removed at night for laundering. D. Do not place a pillow behind your knee when resting. A pillow at your ankle is okay. E. Ice your knee 15-20 minutes every 2-3 hours and elevate it above the level of your heart. F. You may shower on the fourth day after surgery using regular soap and water. Do not submerge until the wound is completely healed (approximately 2 weeks ). Until the fourth day after surgery, cover the incision/bandage with a bag or plastic wrap. G. Anyone who is touching your surgical incision area should wash their hands and wear gloves. H. Keep your incision covered with gauze pads under the DEBRA hose until it is dry. VERY IMPORTANT TO READ AND REVIEW A. YOU WILL BE GIVEN AN ORDER AT DISCHARGE FOR PT/INR (BLOOD WORK). PLEASE HAVE THIS DONE INSTRUCTED. PLEASE CALL OUR OFFICE AFTER YOUR BLOODWORK IS COMPLETE SO WE CAN TRACK YOUR RESULTS. IF YOU ARE GOING TO OUTPATIENT PHYSICAL THERAPY, YOU WILL NEED TO GO TO OUTPATIENT TESTING TO HAVE IT DRAWN. B. There are a few signs you need to watch for after you are home. Call [facility] if you notice any of the followin. Increased severe knee pain. Some pain is expected especially when you exercise. 2. Increased swelling in your leg or knee; pain or swelling of the calf muscle in either lower leg. 3. Any fluid drainage from the incision. 4. Shortness of breath or chest pain. 5. Numbness and tingling in the surgical extremity C. Please call [facility] at if you have any concerns or questions about your operation or recovery. The doctor or his nurse will return your call promptly. D. Do not have any elective dental work or other elective procedures done for 6 weeks after your knee replacement. When you have any invasive procedure (dental cleaning, extraction, colonoscopy etc) performed, you will need to take antibiotics to prevent infection from developing in your artificial joint. Tell your other health care providers you have an artificial joint. My office will supply you with further information and the antibiotics. Call your doctor if: * Temperature above 101 degrees F. * Pain not relieved by pain medicine ordered. * Increased drainage or redness from incision. * Notify your doctor with any questions or concerns. Follow-up Visit: You will follow-up with Dr. Min 10-14 days after surgery. The office number is . * You have a follow up appointment scheduled with Dr. Min on 02/26/17 at 12:45 p.m. Avoid all tobacco products. If you need help to stop smoking, call [place] [employer] [facility] at . This is a free call. Current Hospital Diet Patient's current hospital diet: Regular Diet Discharge Diet Recommended Diet: Regular Diet Procedures Procedures Performed: Left Total Knee Arthroplasty, Cemented Pending Studies Studies pending at discharge: no Physician Orders On Transfer Dressing Changes: Keep Silverlon dressing in place x 5 more days. May change dressing daily as needed. May keep open to air when wound dry. Okay to start to shower on POD 4 ; do not scrub or soak incision. Pat incision dry. Vital Signs: per routine Additional Orders: CBC with platelet count weekly (q Sunday) while on Lovenox Laboratory Results Lipid Panel Test 02/14/17 05:33 Range/Units Triglycerides Level 93 0-150 mg/dl Cholesterol Level 205 H 0-200 mg/dl HDL Cholesterol 46 mg/dl Cholesterol/HDL Ratio 4.5 LDL Cholesterol, Calculated 140 mg/dl Medical Emergencies Who to Call and When: Medical Emergencies: If at any time you feel your situation is an emergency, please call 911 immediately. Non-Emergent Contact Non-Emergency issues call your: Surgeon Call Non-Emergent contact if: temperature is above 101, your pain is not controlled, wound has increased drainage, wound has increased redness, wound has increased pain, you have any medication questions "Provider Documentation" section prepared by Liliana Mac. Core Measure Problem Core Measures: None [place] Drug Monitoring Program Search Results: patient reviewed within database, no issues identified
== END 2017-02-15 14:00 | DRG 470 ==
LOC: C.ACU 05:15 → C.3E 06:35 → ENRESERV 10:35
PROVIDERS: ADMIT Physical Medicine & Rehabilitation Sports Medicine; ATTEND Physical Medicine & Rehabilitation Sports Medicine
PROC: 0SRD0J9 Replacement of Left Knee Joint with Synthetic Substitute, Cemented, Open Approach (ICD-10-PCS; principal; 2017-02-13 07:00)
DX: M17.12 Unilateral primary osteoarthritis, left knee (principal); D62 Acute posthemorrhagic anemia; E87.5 Hyperkalemia; I10 Essential (primary) hypertension; E78.5 Hyperlipidemia, unspecified; J45.909 Unspecified asthma, uncomplicated; M35.3 Polymyalgia rheumatica; E21.3 Hyperparathyroidism, unspecified; K59.09 Other constipation; F32.9 Major depressive disorder, single episode, unspecified; F41.1 Generalized anxiety disorder; E66.9 Obesity, unspecified; Z68.36 Body mass index [BMI] 36.0-36.9, adult; Z87.891 Personal history of nicotine dependence; Z96.651 Presence of right artificial knee joint; Z86.14 Personal history of Methicillin resistant Staphylococcus aureus infection; Z79.1 Long term (current) use of non-steroidal anti-inflammatories (NSAID); Z79.899 Other long term (current) drug therapy; Z88.5 Allergy status to narcotic agent

== ENCOUNTER 2017-02-17 16:39 | Inpatient (IN) | payer OTHER ==
[~2017-02-17] VITALS: Ht 167.6 cm; Wt 99.2 kg
[~2017-02-17 16:39] MED LIST changes: +CLC100 PO; +ENOX1INJ8 SQ; -MCRK20 PO; -OXAP600T PO; +RXC5 PO; +ULT50X PO
[2017-02-17] MEDS ORDERED: METOPROLOL TARTRATE 1 MG/ML VIAL IV STA (16:47)
[2017-02-17 16:58] LABS: BASO % 0.2 %; BASO ABS # 0.02 K/uL (0-0.2); COMPLETE YES; EOS % 0.2 %; HEMATOCRIT 38.2 % (37-47); IG% 1.5 %; LYMPH % 23.8 %; LYMPH ABS # 2.66 K/uL (1.2-3.4); MEAN CELL VOLUME 85.1 fL (80-100); MEAN CORPUSCULAR HEMOGLOBIN 26.5 pg (25-34); MEAN CORPUSCULAR HGB CONC 31.2 g/dl (32-36); MEAN PLATELET VOLUME 10.4 fL (7.4-10.4); MONO % 10.1 %; NEUT % 64.2 %; PLATELET COUNT 361 K/uL (130-400); RED BLOOD COUNT 4.49 M/uL (4.2-5.4)
[2017-02-17] MEDS ORDERED: MAGN1SOL7 PO (17:01)
--- NOTE | 2017-02-17 17:01 | EMERGENCY ROOM VISIT NOTE ---
History Report prepared by Bonny: Alice Lo Under the Supervision of: Dr. Karine Bernard M.D. First contact with patient: 16:41 Chief Complaint: TACHYCARDIA Stated Complaint: TACHYCARDIA, A FIB History of Present Illness The patient is a 72 year old female who presents to the Emergency Room with complaints of persistent tachycardia starting 4 days ago. The patient had a knee replacement 4 days ago and was discharged 2 days ago to [facility]. She has been feeling fatigued, groggy, nauseated, and unable to take a deep breath. She alerted her nurse today that she has been feeling unwell and the nurse determined that she might have atrial fibrillation. An EKG was not done because the patient was sleeping. She has been spending a lot of time sleeping. She denies any chest pain or pain with breathing. She is on Lovenox. She started Spironolactone 1.5 weeks ago and it was increased 1 week ago. She was switched to Spironolactone from her previous diuretic because she was found to by hypokalemic. She is chronically constipated. Recently, she had large bowel movements after taking mag citrate. Source of History: patient Onset: 4 days ago Position: other (global) Quality: other (tachycardia) Timing: other (persistent) Associated Symptoms: + SOB, + nausea, + fatigue, No chest pain Note: Pt reports feeling groggy, sleeping more. Pt denies pain with breathing. Review of Systems See HPI for pertinent positives & negatives. A total of 10 systems reviewed and were otherwise negative. Past Medical & Surgical Medical Problems: (1) Atrial flutter with rapid ventricular response (2) Breast CA (3) Carpal Tunnel Syndrome (4) Cystitis Nos (5) Hx Of Breast Malignancy (6) Hyperlipidemia Nec/Nos (7) Hypertension Nos (8) Iron Defic Anemia Nos (9) Left knee DJD (10) Osteoarthros Nos-Unspec (11) Sepsis Family History Diabetes mellitus Social History Smoking Status: Former Smoker Alcohol Use: occasionally Drug Use: none Housing Status: lives alone Current/Historical Medications Scheduled Cholecalciferol (Vitamin D3), 2,000 INTUNIT PO QAM Clonidine Hcl (Catapres), 1.5 TAB PO QAM Clonidine Hcl (Catapres), 0.2 MG PO HS Diltiazem Hcl Extended Release (Diltiazem Hcl Er), 240 MG PO QAM Docusate Sodium (Docusate Sodium), 100 MG PO BID Enoxaparin Sodium (Lovenox), 30 MG SQ Q12 Magnesium Citrate (Magnesium Citrate), Unknown Dose PO DAILY Paroxetine (Paxil), 20 MG PO QAM Polyethylene Glycol 3350 (Bulk (Polyethylene Glycol 3350), 17 GM PO QAM Spironolactone (Aldactone), 50 MG PO QAM [magnesium chloride], 64 MG PO DAILY Scheduled PRN Senna/Docusate Sod (Senokot S), 1 TAB PO DAILY PRN for Constipation Tramadol (Ultram), 100 MG PO Q4 PRN for Pain Tramadol (Ultram), 50 MG PO Q4H PRN for Pain Allergies Coded Allergies: Pineapple (Verified Allergy, Severe, RAW PINEAPPLE-BURNING FACE, TIGHTNESS IN THROAT, 02/17/17) Statins (Verified Adverse Reaction, Intermediate, MUSCLE ACHING, 02/17/17) HMG-CoA-R Inhibitors (Verified Adverse Reaction, Mild, STATINS- MUSCLE ACHES, 02/17/17) Acetaminophen (Verified Adverse Reaction, Unknown, decreased urine output , 02/17/17) Amlodipine (Verified Adverse Reaction, Unknown, BRADYCARDIA, 02/17/17) Amoxicillin (Verified Adverse Reaction, Unknown, nausea, 02/17/17) Ascorbate (Verified Adverse Reaction, Unknown, heart punds, tacchy and headache, 02/17/17) Aspirin (Verified Adverse Reaction, Unknown, upset stomach, 02/17/17) Beta-Carotene (Verified Adverse Reaction, Unknown, heart punds, tacchy and headache, 02/13/17) Casein (Verified Adverse Reaction, Unknown, heart punds, tacchy and headache, 02/17/17) Cholecalciferol (Verified Adverse Reaction, Unknown, heart punds, tacchy and headache, 02/13/17) Clavulanic Acid (Verified Adverse Reaction, Unknown, nausea, 02/17/17) Cupric Oxide (Verified Adverse Reaction, Unknown, heart punds, tacchy and headache, 02/13/17) Diclofenac (Verified Adverse Reaction, Unknown, wobbly, 02/13/17) Docosahexaenoic Acid (DHA) (Verified Adverse Reaction, Unknown, heart punds, tacchy and headache, 02/13/17) Eicosapentaenoic Acid (EPA) (Verified Adverse Reaction, Unknown, heart punds, tacchy and headache, 02/13/17) Ezetimibe (Verified Adverse Reaction, Unknown, chills, myalgia, 02/13/17) Ferrous Bisglycinate (Verified Adverse Reaction, Unknown, heart punds, tacchy and headache, 02/13/17) Folic Acid (Verified Adverse Reaction, Unknown, heart punds, tacchy and headache, 02/17/17) Gemfibrozil (Verified Adverse Reaction, Unknown, EXTREME FATIGUE, 02/17/17) Hydrocodone (Verified Adverse Reaction, Unknown, decreased urine output, ) Iron (Verified Adverse Reaction, Unknown, heart punds, tacchy and headache , 02/13/17) Magnesium Oxide (Verified Adverse Reaction, Unknown, heart punds, tacchy and headache, 02/17/17) Olmesartan (Verified Adverse Reaction, Unknown, cough, fatigue, 02/13/17) POLLEN (Verified Adverse Reaction, Unknown, nasal congestion, 02/13/17) Pyridoxine (Verified Adverse Reaction, Unknown, heart punds, tacchy and headache, 02/17/17) Riboflavin (Verified Adverse Reaction, Unknown, heart punds, tacchy and headache, 02/17/17) Sodium Benzoate (Verified Adverse Reaction, Unknown, heart punds, tacchy and headache, 02/17/17) Telmisartan (Verified Adverse Reaction, Unknown, flu-like symptoms, ) Thiamine (Verified Adverse Reaction, Unknown, heart punds, tacchy and headache, 02/17/17) Varenicline (Verified Adverse Reaction, Unknown, headache, nausea and vivid dreams, 02/13/17) Vitamin B12 (Verified Adverse Reaction, Unknown, heart punds, tacchy and headache, 02/13/17) Vitamin E (Verified Adverse Reaction, Unknown, heart punds, tacchy and headache, 02/13/17) Zinc Oxide (Verified Adverse Reaction, Unknown, heart punds, tacchy and headache, 02/13/17) Physical Exam Vital Signs Date Time Temp Pulse Resp B/P (MAP) Pulse Ox O2 Delivery O2 Flow Rate FiO2 02/17/17 19:44 104 17 02/17/17 19:20 108/76 02/17/17 19:14 111 21 93 02/17/17 19:09 111/78 02/17/17 19:05 92 18 93 02/17/17 19:00 111/78 02/17/17 18:35 104 22 88 02/17/17 18:32 118/71 02/17/17 18:14 112/77 02/17/17 18:13 112/77 02/17/17 18:05 82 16 94 02/17/17 18:00 91/62 02/17/17 17:59 76 17 95 02/17/17 17:54 87 15 95 02/17/17 17:39 81 22 90 02/17/17 17:34 73 02/17/17 17:24 86 19 93 02/17/17 17:14 80 97/64 98 02/17/17 17:10 97/64 02/17/17 17:09 71 29 95 02/17/17 16:58 132 105/78 02/17/17 16:56 132 20 105/78 97 02/17/17 16:54 122 02/17/17 16:54 140 16 95 02/17/17 16:49 97 Room Air 02/17/17 16:49 97 Room Air 02/17/17 16:49 37.0 93 18 105/78 97 Room Air 02/17/17 16:45 105/78 Physical Exam Vital signs reviewed. General: Well-appearing female, in no significant distress. HEENT: No scleral icterus, PERRLA, neck supple. Atraumatic. Cardiovascular: Rapid rate and irregular rhythm, no extra sounds. Pulmonary: Clear to auscultation bilaterally, normal work of breathing. Abdomen: Soft, nontender, nondistended, positive bowel sounds. Musculoskeletal: Atraumatic, compression stockings on bilateral lower extremities to the knees. Neurologic: Patient awake alert and oriented x 3, full strength in all 4 extremities. Cranial nerves 2 through 12 grossly intact. Skin: Warm, dry, no rash Medical Decision & Procedures Laboratory Results Test 02/17/17 16:44 02/17/17 16:53 Nucleated RBC Absolute Count (auto) 0.09 K/uL (0-0) Nucleated Red Blood Cells % 0.8 % Prothrombin Time 11.1 SECONDS (9.0-12.0) Prothromb Time International Ratio 1.0 (0.9-1.1) Activated Partial Thromboplast Time 29.1 SECONDS (21.0-31.0) Partial Thromboplastin Ratio 1.1 Magnesium Level 2.3 mg/dl (1.8-2.4) Total Bilirubin 0.5 mg/dl (0.2-1) Direct Bilirubin 0.1 mg/dl (0-0.2) Aspartate Amino Transf (AST/SGOT) 15 U/L (15-37) Alanine Aminotransferase (ALT/SGPT) 18 U/L (12-78) Alkaline Phosphatase 66 U/L (45-117) Total Creatine Kinase 199 U/L (26-192) Creatine Kinase MB 1.2 ng/ml (0.5-3.6) Creatine Kinase MB Ratio 0.6 (0-3.0) Total Protein 7.0 gm/dl (6.4-8.2) Albumin 2.8 gm/dl (3.4-5.0) Thyroid Stimulating Hormone (TSH) 1.370 uIu/ml (0.300-4.500) Bedside Troponin I < 0.030 ng/ml (0-0.045) Laboratory results per my review. Medications Administered Medications (Trade) Dose Ordered Sig/David Route Start Time Stop Time Status Last Admin Dose Admin Metoprolol Tartrate (Lopressor Iv) 15 mg NOW STAT IV 02/17/17 16:47 02/17/17 16:50 DC 02/17/17 16:58 5 MG Senna/Docusate Sodium (Senokot S Tab) 1 tab DAILY PRN PO 02/17/17 19:45 03/19/17 19:44 02/18/17 07:55 1 TAB ECG Indication: tachycardia Rate (beats per minute): 132 Rhythm: atrial flutter Findings: other (variable AV block, nonspecific T wave changes) Change: Repeat EKG: atrial flutter, rate 77, variable AV block, nonspecific T wave abnormality. ED Course 1644: Past medical records reviewed. The patient was evaluated in room C9. A complete history and physical examination was performed. 1646: Lopressor Iv 15 mg IV. 1917: I reviewed the patient's case with Dr. Blackmon, [facility] hospitalist. He will evaluate the patient for further management. 1924: Upon reevaluation, the patient is resting comfortably. I discussed laboratory and radiographic results with her. She verbalized agreement of the treatment plan. [facility] The patient will be evaluated for further management and care. Medical Decision Differential diagnosis: Etiologies such as premature contractions, electrolyte abnormality, cardiac dysrhythmia, thyroid dysfunction, pulmonary embolism, infection, gastrointestinal, as well as others were entertained. Medication Reconciliation: I attest that I have personally reviewed the patient' s current medication list. Blood Pressure Screening: Patient was found to have normal blood pressure on screening and does not require follow-up. This patient was evaluated and appeared to be in no significant distress. Physical examination is consistent with a rapid atrial flutter. Patient was given IV Lopressor with rate control, she did remain in a atrial flutter. Patient's laboratory work reveals no elevation of the cardiac enzymes. Patient did require an additional dose of IV metoprolol for rate control. At this point I feel the patient would best be suited in the hospital secondary to her new onset atrial flutter. I have discussed the case with Dr. Blackmon of the hospitalist service who has agreed to evaluate the patient for further management. Consults Time Called: 1910 Consulting Physician: Dr. Blackmon, [facility] hospitalist Returned Call: 1917 I reviewed the patient's case with him. He will evaluate the patient for further management. Impression Primary Impression: Atrial flutter with rapid ventricular response Additional Impression: S/P total knee arthroplasty Scribe Attestation The scribe's documentation has been prepared under my direction and personally reviewed by me in its entirety. I confirm that the note above accurately reflects all work, treatment, procedures, and medical decision making performed by me. Departure Information Dispostion Being Evaluated By Hospitalist Referrals Finesse Newell M.D. (PCP) Patient Instructions My [facility] Problem Qualifiers Additional Impression: S/P total knee arthroplasty Laterality: left Qualified Codes: Z96.652 - Presence of left artificial knee joint
[2017-02-17] MEDS ORDERED: SENN-65 PO (17:03)
[2017-02-17] MEDS ORDERED: TRAM-10 PO ×2 (17:05→17:08)
[2017-02-17 17:09] LABS: PARTIAL THROMBOPLASTIN RATIO 1.1; PROTHROMBIN TIME (PATIENT) 11.1 SECONDS (9.0-12.0)
[2017-02-17] MEDS ORDERED: CTP/1 PO (17:11)
[2017-02-17] MEDS ORDERED: DILT120C67 PO (17:13)
[2017-02-17 17:14] LABS: BUN/CREATININE RATIO 19.9 (10-20); CALCIUM 8.7 mg/dl (8.5-10.1); CREATININE 1.3 mg/dl (0.60-1.20); MAGNESIUM 2.3 mg/dl (1.8-2.4)
[2017-02-17] MEDS ORDERED: SPIR25TA PO (17:20)
[2017-02-17 17:25] LABS: CKMB/CK RATIO 0.6 (0-3.0); THYROID STIMULATING HORMONE 1.37 uIu/ml (0.300-4.500)
[2017-02-17] MEDS ORDERED: ALUMINUM/MAGNESIUM/SIMETH (MAALOX MAX) 30 ML UDC PO PRN (19:45)
[2017-02-17] MEDS ORDERED: ACETAMINOPHEN 325 MG TAB PO PRN (19:45)
[2017-02-17] MEDS ORDERED: MoRPHine SULFATE 2 MG/ML CARP IV PRN (19:45)
[2017-02-17] MEDS ORDERED: ONDANSETRON INJ 2 MG/ML 2 ML VIAL IV PRN (19:45)
[2017-02-17] MEDS ORDERED: TRAMADOL HCL 50 MG TAB PO PRN ×2 (19:45)
[2017-02-17] MEDS ORDERED: MAGNESIUM HYDROXIDE SUSP 30 ML UDC PO PRN (19:45)
[2017-02-17] MEDS ORDERED: METOPROLOL TARTRATE 1 MG/ML VIAL IV PRN (19:45)
[2017-02-17] MEDS ORDERED: OXYCODONE HCL IR 5 MG TAB (IMMEDIATE RELEASE) PO PRN (19:45)
--- NOTE | 2017-02-17 19:58 | History and Physical ---
History & Physical Date & Time of Service: Feb 17, 2017 at 19:51 Chief Complaint: Tachycardia, A Fib Primary Care Physician: Finesse Newell M.D. History of Present Illness This patient returns from [facility] found to be in atrial flutter RVR after undergoing total knee replacement February 13 The patient says she fell while she was here shortly after arriving in [facility] she began feeling poorly she be sleepy all the time she did not have any energy she was dyspneic with exertion. In the emergency department. Atrial flutter responded to beta marilu therapy, she traditionally takes daily diltiazem. She has no previous history of this, she was on appropriate DVT prevention of enoxaparin twice a day, has not any any unusual leg swelling or redness and has no pleuritic chest pain. She currently remains in a flutter with rate control around 100 Past Medical/Surgical History Medical Problems: (1) Breast CA Status: Resolved (2) Hx Of Breast Malignancy Status: Resolved (3) Hypertension Nos Status: Chronic (4) Iron Defic Anemia Nos Status: Chronic (5) Osteoarthros Nos-Unspec Status: Chronic (6) Sepsis Status: Resolved Family History Diabetes mellitus Social History Smoking Status: Former Smoker Drug Use: none Housing status: lives with family Immunizations History of Influenza Vaccine: Yes History of Tetanus Vaccine?: UTD History of Pneumococcal: Yes History of Hepatitis B Vaccine: Yes Multi-Drug Resistant Organisms History of MDRO: No Allergies Coded Allergies: Statins (Verified Adverse Reaction, Intermediate, MUSCLE ACHING, 02/17/17) HMG-CoA-R Inhibitors (Verified Adverse Reaction, Mild, STATINS- MUSCLE ACHES, 02/17/17) Acetaminophen (Verified Adverse Reaction, Unknown, decreased urine output , 02/17/17) Amlodipine (Verified Adverse Reaction, Unknown, BRADYCARDIA, 02/17/17) Amoxicillin (Verified Adverse Reaction, Unknown, nausea, 02/17/17) Ascorbate (Verified Adverse Reaction, Unknown, heart punds, tacchy and headache, 02/17/17) Aspirin (Verified Adverse Reaction, Unknown, upset stomach, 02/17/17) Beta-Carotene (Verified Adverse Reaction, Unknown, heart punds, tacchy and headache, 02/13/17) Casein (Verified Adverse Reaction, Unknown, heart punds, tacchy and headache, 02/17/17) Cholecalciferol (Verified Adverse Reaction, Unknown, heart punds, tacchy and headache, 02/13/17) Clavulanic Acid (Verified Adverse Reaction, Unknown, nausea, 02/17/17) Cupric Oxide (Verified Adverse Reaction, Unknown, heart punds, tacchy and headache, 02/13/17) Diclofenac (Verified Adverse Reaction, Unknown, wobbly, 02/13/17) Docosahexaenoic Acid (DHA) (Verified Adverse Reaction, Unknown, heart punds, tacchy and headache, 02/13/17) Eicosapentaenoic Acid (EPA) (Verified Adverse Reaction, Unknown, heart punds, tacchy and headache, 02/13/17) Ezetimibe (Verified Adverse Reaction, Unknown, chills, myalgia, 02/13/17) Ferrous Bisglycinate (Verified Adverse Reaction, Unknown, heart punds, tacchy and headache, 02/13/17) Folic Acid (Verified Adverse Reaction, Unknown, heart punds, tacchy and headache, 02/17/17) Gemfibrozil (Verified Adverse Reaction, Unknown, EXTREME FATIGUE, 02/17/17) Hydrocodone (Verified Adverse Reaction, Unknown, decreased urine output, ) Iron (Verified Adverse Reaction, Unknown, heart punds, tacchy and headache , 02/13/17) Magnesium Oxide (Verified Adverse Reaction, Unknown, heart punds, tacchy and headache, 02/17/17) Olmesartan (Verified Adverse Reaction, Unknown, cough, fatigue, 02/13/17) POLLEN (Verified Adverse Reaction, Unknown, nasal congestion, 02/13/17) Pyridoxine (Verified Adverse Reaction, Unknown, heart punds, tacchy and headache, 02/17/17) Riboflavin (Verified Adverse Reaction, Unknown, heart punds, tacchy and headache, 02/17/17) Sodium Benzoate (Verified Adverse Reaction, Unknown, heart punds, tacchy and headache, 02/17/17) Telmisartan (Verified Adverse Reaction, Unknown, flu-like symptoms, ) Thiamine (Verified Adverse Reaction, Unknown, heart punds, tacchy and headache, 02/17/17) Varenicline (Verified Adverse Reaction, Unknown, headache, nausea and vivid dreams, 02/13/17) Vitamin B12 (Verified Adverse Reaction, Unknown, heart punds, tacchy and headache, 02/13/17) Vitamin E (Verified Adverse Reaction, Unknown, heart punds, tacchy and headache, 02/13/17) Zinc Oxide (Verified Adverse Reaction, Unknown, heart punds, tacchy and headache, 02/13/17) Uncoded Allergies: RAW PINEAPPLE (Allergy, Unknown, burningin face, flushing down neck, tightness in throat, 01/25/17) Home Medications Scheduled Cholecalciferol (Vitamin D3), 2,000 INTUNIT PO QAM Clonidine Hcl (Catapres), 1.5 TAB PO QAM Clonidine Hcl (Catapres), 0.2 MG PO HS Diltiazem Hcl Extended Release (Diltiazem Hcl Er), 240 MG PO QAM Docusate Sodium (Docusate Sodium), 100 MG PO BID Enoxaparin Sodium (Lovenox), 30 MG SQ Q12 Magnesium Citrate (Magnesium Citrate), Unknown Dose PO DAILY Paroxetine (Paxil), 20 MG PO QAM Polyethylene Glycol 3350 (Bulk (Polyethylene Glycol 3350), 17 GM PO QAM Spironolactone (Aldactone), 50 MG PO QAM [magnesium chloride], 64 MG PO DAILY Scheduled PRN Senna/Docusate Sod (Senokot S), 1 TAB PO DAILY PRN for Constipation Tramadol (Ultram), 100 MG PO Q4 PRN for Pain Tramadol (Ultram), 50 MG PO Q4H PRN for Pain Review of Systems ROS: well nourished well developed No double vision blurry vision No problems with speech or swallowing She can sense palpitations, but has no chest pain or pressure No Wheezing or breathing issues except for dyspnea on exertion No abdominal pain nausea vomiting diarrhea changes in appetite or weight No burning urine urine frequency or changes in color Her knee is not painful she notes minor bruising and minor swelling No skin rashes she has bruising to her distal left leg No focused back pain or numbness or loss of strength No changes in memory or confusion Physical Exam Vital Signs Date Time Temp Pulse Resp B/P (MAP) Pulse Ox O2 Delivery O2 Flow Rate FiO2 02/17/17 19:09 111/78 02/17/17 19:05 92 18 93 02/17/17 19:00 111/78 02/17/17 18:35 104 22 88 02/17/17 18:32 118/71 02/17/17 18:14 112/77 02/17/17 18:13 112/77 02/17/17 18:05 82 16 94 02/17/17 18:00 91/62 02/17/17 17:59 76 17 95 02/17/17 17:54 87 15 95 02/17/17 17:39 81 22 90 02/17/17 17:34 73 02/17/17 17:24 86 19 93 02/17/17 17:14 80 97/64 98 02/17/17 17:10 97/64 02/17/17 17:09 71 29 95 02/17/17 16:58 132 105/78 02/17/17 16:56 132 20 105/78 97 02/17/17 16:54 122 02/17/17 16:54 140 16 95 02/17/17 16:49 97 Room Air 02/17/17 16:49 97 Room Air 02/17/17 16:49 37.0 93 18 105/78 97 Room Air 02/17/17 16:45 105/78 General Appearance: WD/WN, + mild distress Head: normocephalic, atraumatic Eyes: PERRL, EOMI Neck: supple, thyroid normal Respiratory/Chest: chest non-tender, lungs clear, normal breath sounds Cardiovascular: regular rate, rhythm, no murmur, + tachycardia Abdomen/GI: normal bowel sounds, non tender, soft Back: no CVA tenderness, no muscle spasm Extremities/Musculoskelatal: + pertinent finding (trace edema to the left leg no Homans sign bruits) Neurologic/Psych: alert, oriented x 3 Skin: normal color, warm/dry, no rash Diagnostics Laboratory Results Results Past 24 Hours Test 02/17/17 16:44 02/17/17 16:53 Range/Units White Blood Count 11.20 4.8-10.8 K/uL Red Blood Count 4.49 4.2-5.4 M/uL Hemoglobin 11.9 12.0-16.0 g/dL Hematocrit 38.2 37-47 % Mean Corpuscular Volume 85.1 80-100 fL Mean Corpuscular Hemoglobin 26.5 25-34 pg Mean Corpuscular Hemoglobin Concent 31.2 32-36 g/dl Platelet Count 361 130-400 K/uL Mean Platelet Volume 10.4 7.4-10.4 fL Neutrophils (%) (Auto) 64.2 % Lymphocytes (%) (Auto) 23.8 % Monocytes (%) (Auto) 10.1 % Eosinophils (%) (Auto) 0.2 % Basophils (%) (Auto) 0.2 % Neutrophils # (Auto) 7.20 1.4-6.5 K/uL Lymphocytes # (Auto) 2.66 1.2-3.4 K/uL Monocytes # (Auto) 1.13 0.11-0.59 K/uL Eosinophils # (Auto) 0.02 0-0.5 K/uL Basophils # (Auto) 0.02 0-0.2 K/uL RDW Standard Deviation 49.6 36.4-46.3 fL RDW Coefficient of Variation 16.0 11.5-14.5 % Immature Granulocyte % (Auto) 1.5 % Immature Granulocyte # (Auto) 0.17 0.00-0.02 K/uL Nucleated RBC Absolute Count (auto) 0.09 0-0 K/uL Nucleated Red Blood Cells % 0.8 % Prothrombin Time 11.1 9.0-12.0 SECONDS Prothromb Time International Ratio 1.0 0.9-1.1 Activated Partial Thromboplast Time 29.1 21.0-31.0 SECONDS Partial Thromboplastin Ratio 1.1 Sodium Level 139 136-145 mmol/L Potassium Level 4.0 3.5-5.1 mmol/L Chloride Level 105 98-107 mmol/L Carbon Dioxide Level 27 21-32 mmol/L Anion Gap 7.0 3-11 mmol/L Blood Urea Nitrogen 26 7-18 mg/dl Creatinine 1.30 0.60-1.20 mg/dl Est Creatinine Clear Calc Drug Dose 48.2 ml/min Estimated GFR () 48.1 Estimated GFR (Non- 41.5 BUN/Creatinine Ratio 19.9 10-20 Random Glucose 106 70-99 mg/dl Calcium Level 8.7 8.5-10.1 mg/dl Magnesium Level 2.3 1.8-2.4 mg/dl Total Bilirubin 0.5 0.2-1 mg/dl Direct Bilirubin 0.1 0-0.2 mg/dl Aspartate Amino Transf (AST/SGOT) 15 15-37 U/L Alanine Aminotransferase (ALT/SGPT) 18 12-78 U/L Alkaline Phosphatase 66 45-117 U/L Total Creatine Kinase 199 26-192 U/L Creatine Kinase MB 1.2 0.5-3.6 ng/ml Creatine Kinase MB Ratio 0.6 0-3.0 Total Protein 7.0 6.4-8.2 gm/dl Albumin 2.8 3.4-5.0 gm/dl Thyroid Stimulating Hormone (TSH) 1.370 0.300-4.500 uIu/ml Bedside Troponin I < 0.030 0-0.045 ng/ml CXR normal other (atrial flutter RVR no acute changes) Impression Assessment and Plan 72-year-old female with new-onset atrial flutter RVR minor symptoms from it Atrial flutter. Stop diltiazem and start metoprolol titrate 50 twice a day with when necessary IV. Echocardiogram troponin cardiology consultation. Consideration for CT angiogram however patient has no peripheral signs of DVT and was appropriately anticoagulated although at preventative doses not therapeutic doses. Diagnoses of PE may change duration of therapy if patient is cardioverted. TSH is normal For her hypertension as mentioned diltiazem will be stopped, clonidine will be continued spironolactone will be stopped Paxil be maintained for depression PT OT eval VTE Prophylaxis VTE Risk Assessment Done? Y/N: Yes Risk Level: High Given or contraindicated: Enoxaparin (Lovenox)SQ
[2017-02-17 20:11] VITALS: O2SAT 97
[2017-02-17 20:20] VITALS: BP 114/68; PULSE 72; TEMP 37.4; Ht 167.6 cm; Wt 99.2 kg
[2017-02-17] MEDS ORDERED: CLONIDINE HCL 0.1 MG TAB PO SCH (21:00)
[2017-02-17] MEDS ORDERED: ENOXAPARIN 1 MG/KG SQ SCH (21:00)
[2017-02-17] MEDS: ENOXAPARIN 100 MG/1ML SYR SQ SCH (21:06)
[2017-02-17] MEDS: METOPROLOL TARTRATE 50 MG TAB PO SCH (21:06)
[2017-02-17] MEDS: DOCUSATE SODIUM 100 MG CAP PO SCH (21:06)
[2017-02-17] MEDS: SODIUM CHLORIDE 0.9% 1000ML 1,000 ML IV SCH (21:07)
[2017-02-17 23:32] VITALS: BP 106/56; PULSE 67; TEMP 37.4; O2SAT 93
[2017-02-17] MEDS: METOPROLOL TARTRATE 1 MG/ML VIAL IV. SCH (23:46)
[2017-02-18] VITALS (8 sets, daily range): BP systolic 92–134; BP diastolic 57–77; PULSE 69–110; TEMP 36.8–37.3; O2SAT 92–98
[2017-02-18] MEDS: METOPROLOL TARTRATE 1 MG/ML VIAL IV. SCH ×3 (03:46→09:12)
[2017-02-18] MEDS: SODIUM CHLORIDE 0.9% 1000ML 1,000 ML IV SCH (05:45)
[2017-02-18] MEDS: PAROXETINE 20 MG TAB PO SCH (07:51)
[2017-02-18] MEDS: TRAMADOL HCL 50 MG TAB PO PRN ×3 (07:51→22:34)
[2017-02-18] MEDS: METOPROLOL TARTRATE 50 MG TAB PO SCH ×2 (07:52→19:49)
[2017-02-18] MEDS: DOCUSATE SODIUM 100 MG CAP PO SCH ×2 (07:52→19:49)
[2017-02-18] MEDS: ENOXAPARIN 100 MG/1ML SYR SQ SCH (07:55)
[2017-02-18] MEDS: DOCUSATE SODIUM/SENNA 50/8.6MG TAB PO PRN (07:55)
[2017-02-18] MEDS ORDERED: CLONIDINE HCL 0.1 MG TAB PO SCH ×2 (09:00→21:00)
[2017-02-18] MEDS ORDERED: POLYETHYLENE (MIRALAX) 17 GM PACK PO ONE (09:23)
[2017-02-18 09:31] LABS: BASO % 0.2 %; BASO ABS # 0.02 K/uL (0-0.2); COMPLETE YES; EOS % 0.8 %; HEMATOCRIT 35.1 % (37-47); IG% 1.6 %; LYMPH % 30.5 %; LYMPH ABS # 2.51 K/uL (1.2-3.4); MEAN CELL VOLUME 85.6 fL (80-100); MEAN CORPUSCULAR HEMOGLOBIN 26.3 pg (25-34); MEAN CORPUSCULAR HGB CONC 30.8 g/dl (32-36); MEAN PLATELET VOLUME 10.1 fL (7.4-10.4); MONO % 8.7 %; NEUT % 58.2 %; PLATELET COUNT 316 K/uL (130-400); WHITE BLOOD COUNT 8.24 K/uL (4.8-10.8)
--- NOTE | 2017-02-18 09:34 | Progress Note ---
Subjective Date of Service: Feb 18, 2017. Subjective Pt evaluation today including: conversation w/ patient, physical exam, lab review, conversation w/ contact center consultant, review of inpatient medication list Pain: no pain PO Intake: adequate Voiding: no voiding problems patient resting comfortably, no chest pain, no dyspnea, no palpitations reviewed monitor - still in atrial flutter, rates in 60's discussed diagnosis of atrial flutter and the need for anticoagulation explained that she will be seen by cardiology patient had a BM yesterday but it was the first in 6 days, requested scheduled Miralax that she takes at home talked with RN, will stop fluids and scheduled lopressor IV, HR controlled on PO Lopressor Problem List Medical Problems: (1) Atrial flutter with rapid ventricular response Status: Acute Social History Problems: (1) S/P total knee arthroplasty Status: Acute Review of Systems Abdomen: + constipation Musculoskeletal: + joint pain (mild in the knee) All Other Systems: Reviewed and Negative Medications Current Inpatient Medications Medications (Trade) Dose Ordered Sig/David Route Start Time Stop Time Status Last Admin Dose Admin Acetaminophen (Tylenol Tab) 650 mg Q4H PRN PO 02/17/17 19:45 03/19/17 19:44 Al Hydrox/Mg Hydrox/Simethicone (Maalox Max Susp) 15 ml Q4H PRN PO 02/17/17 19:45 03/19/17 19:44 Magnesium Hydroxide (Milk Of Magnesia Susp) 30 ml Q12H PRN PO 02/17/17 19:45 03/19/17 19:44 Ondansetron HCl (Zofran Inj) 4 mg Q6H PRN IV 02/17/17 19:45 03/19/17 19:44 Morphine Sulfate (MoRPHine SULFATE INJ) 2 mg Q30M PRN IV 02/17/17 19:45 03/03/17 19:44 Metoprolol Tartrate (Lopressor Tab) 50 mg BID PO 02/17/17 21:00 03/19/17 20:59 02/18/17 07:52 50 MG Clonidine HCl (Catapres Tab) 0.2 mg HS PO 02/17/17 21:00 03/19/17 20:59 02/17/17 21:06 0.2 MG Clonidine HCl (Catapres Tab) 0.15 mg QAM PO 02/18/17 09:00 03/20/17 08:59 02/18/17 07:52 0.15 MG Docusate Sodium (coLACE CAP) 100 mg BID PO 02/17/17 21:00 03/19/17 20:59 02/18/17 07:52 100 MG Paroxetine HCl (pAXil TAB) 20 mg QAM PO 02/18/17 09:00 03/20/17 08:59 02/18/17 07:51 20 MG Senna/Docusate Sodium (Senokot S Tab) 1 tab DAILY PRN PO 02/17/17 19:45 03/19/17 19:44 02/18/17 07:55 1 TAB Metoprolol Tartrate (Lopressor Iv) 5 mg Q4 PRN IV 02/17/17 19:45 03/19/17 19:44 Metoprolol Tartrate (Lopressor Iv) 5 mg Q4 IV. 02/18/17 00:00 03/20/17 00:00 02/18/17 03:46 5 MG Oxycodone HCl (Roxicodone Immediate Rel Tab) 10 mg Q6 PRN PO 02/17/17 19:45 03/03/17 19:44 Sodium Chloride 1,000 ml @ 100 mls/hr Q10H IV 02/17/17 20:00 03/19/17 19:59 02/18/17 05:45 100 MLS/HR Tramadol HCl (Ultram Tab) `1-2 tabs for pain 1 tab ... Q4 PRN PO 02/17/17 20:30 03/19/17 19:44 02/18/17 07:51 100 MG Enoxaparin Sodium (Lovenox Inj) 100 mg Q12 SQ 02/17/17 21:00 03/19/17 20:59 02/18/17 07:55 100 MG Objective Vital Signs Date Time Temp Pulse Resp B/P (MAP) Pulse Ox O2 Delivery O2 Flow Rate FiO2 02/18/17 08:00 Room Air 02/18/17 07:49 37.1 77 20 127/68 (87) 92 Room Air 02/18/17 04:00 Room Air 02/18/17 03:46 82 109/71 02/18/17 03:44 36.9 20 92 Room Air 02/18/17 00:00 Room Air 02/17/17 23:46 58 102/69 02/17/17 23:32 37.4 67 18 106/56 (73) 93 Room Air 02/17/17 21:00 Room Air 02/17/17 20:20 37.4 72 114/68 Room Air 02/17/17 20:11 36.9 98 12 112/70 97 02/17/17 20:07 98 20 112/72 99 02/17/17 19:44 104 17 02/17/17 19:20 108/76 02/17/17 19:14 111 21 93 02/17/17 19:09 111/78 02/17/17 19:05 92 18 93 02/17/17 19:00 111/78 02/17/17 18:35 104 22 88 02/17/17 18:32 118/71 02/17/17 18:14 112/77 02/17/17 18:13 112/77 02/17/17 18:05 82 16 94 02/17/17 18:00 91/62 02/17/17 17:59 76 17 95 02/17/17 17:54 87 15 95 02/17/17 17:39 81 22 90 02/17/17 17:34 73 02/17/17 17:24 86 19 93 02/17/17 17:14 80 97/64 98 02/17/17 17:10 97/64 02/17/17 17:09 71 29 95 02/17/17 16:58 132 105/78 02/17/17 16:56 132 20 105/78 97 02/17/17 16:54 122 02/17/17 16:54 140 16 95 02/17/17 16:49 97 Room Air 02/17/17 16:49 97 Room Air 02/17/17 16:49 37.0 93 18 105/78 97 Room Air 02/17/17 16:45 105/78 Physical Exam General Appearance: WD/WN, no apparent distress Eyes: normal inspection, EOMI, sclerae normal Neck: supple, no adenopathy, no JVD, trachea midline Respiratory/Chest: chest non-tender, lungs clear, normal breath sounds, no respiratory distress, no accessory muscle use Cardiovascular: no edema, no gallop, no JVD, no murmur, + irregularly irregular Abdomen: normal bowel sounds, non tender, soft, no organomegaly Extremities: non-tender, no pedal edema, no calf tenderness, pelvis stable, + pertinent finding (left knee with mild swelling, decreased ROM from surgery) Neurologic/Psychiatric: transmitter engineer in charge II-XII nml as tested, no motor/sensory deficits, alert, normal mood/affect, oriented x 3 Skin: normal color, warm/dry, no rash Laboratory Results Last 24 Hours Test 02/17/17 16:44 02/17/17 16:53 02/18/17 09:07 White Blood Count 11.20 K/uL Red Blood Count 4.49 M/uL Hemoglobin 11.9 g/dL Hematocrit 38.2 % Mean Corpuscular Volume 85.1 fL Mean Corpuscular Hemoglobin 26.5 pg Mean Corpuscular Hemoglobin Concent 31.2 g/dl Platelet Count 361 K/uL Mean Platelet Volume 10.4 fL Neutrophils (%) (Auto) 64.2 % Lymphocytes (%) (Auto) 23.8 % Monocytes (%) (Auto) 10.1 % Eosinophils (%) (Auto) 0.2 % Basophils (%) (Auto) 0.2 % Neutrophils # (Auto) 7.20 K/uL Lymphocytes # (Auto) 2.66 K/uL Monocytes # (Auto) 1.13 K/uL Eosinophils # (Auto) 0.02 K/uL Basophils # (Auto) 0.02 K/uL RDW Standard Deviation 49.6 fL RDW Coefficient of Variation 16.0 % Immature Granulocyte % (Auto) 1.5 % Immature Granulocyte # (Auto) 0.17 K/uL Nucleated RBC Absolute Count (auto) 0.09 K/uL Nucleated Red Blood Cells % 0.8 % Prothrombin Time 11.1 SECONDS Prothromb Time International Ratio 1.0 Activated Partial Thromboplast Time 29.1 SECONDS Partial Thromboplastin Ratio 1.1 Sodium Level 139 mmol/L Potassium Level 4.0 mmol/L Chloride Level 105 mmol/L Carbon Dioxide Level 27 mmol/L Anion Gap 7.0 mmol/L Blood Urea Nitrogen 26 mg/dl Creatinine 1.30 mg/dl Est Creatinine Clear Calc Drug Dose 48.2 ml/min Estimated GFR () 48.1 Estimated GFR (Non- 41.5 BUN/Creatinine Ratio 19.9 Random Glucose 106 mg/dl Calcium Level 8.7 mg/dl Magnesium Level 2.3 mg/dl Total Bilirubin 0.5 mg/dl Direct Bilirubin 0.1 mg/dl Aspartate Amino Transf (AST/SGOT) 15 U/L Alanine Aminotransferase (ALT/SGPT) 18 U/L Alkaline Phosphatase 66 U/L Total Creatine Kinase 199 U/L Creatine Kinase MB 1.2 ng/ml Creatine Kinase MB Ratio 0.6 Total Protein 7.0 gm/dl Albumin 2.8 gm/dl Thyroid Stimulating Hormone (TSH) 1.370 uIu/ml Bedside Troponin I < 0.030 ng/ml Assessment and Plan 72-year-old female with new-onset atrial flutter with RVR on admission, recent left TKA on 02/13 and she was in rehab at [facility] when she developed the atrial flutter - new onset atrial flutter with RVR: rates are now controlled in the 60's while at rest, controlled with Lopressor 50mg BID Diltiazem was stopped, will continue to hold fully anticoagulated on Lovenox 100mg q12, discussed need for oral anticoagulation, await cardiology input later today echocardiogram pending, will follow up on results no chest pain, no palpitations keep on tele today - HTN: BP controlled on Clonidine and Lopressor, note that Diltiazem and Spironolactone stopped question whether to resume Spironolactone on discharge, her BP is low normal if BP becomes elevated then start Spironolactone - Constipation: first BM in a week was yesterday, hard and difficult to pass resume miralax daily scheduled, good PO intake, increase activity - s/p left TKA: therapy ordered, was at rehab when atrial flutter started recovering well, pain control with Ultram will follow up with orthopedic surgery as previously scheduled - Depression: mood stable, continue Paxil PT OT eval DVT prophylaxis: Lovenox
[2017-02-18 10:10] LABS: BUN/CREATININE RATIO 21.3 (10-20); CALCIUM 8.3 mg/dl (8.5-10.1); CREATININE 1.2 mg/dl (0.60-1.20); POTASSIUM 3.8 mmol/L (3.5-5.1)
--- NOTE | 2017-02-18 14:41 | Cardiology Consultation ---
Cardiology Consultation Date of Consultation: Feb 18, 2017. Requesting Physician: Dr. Blackmon Attending Physician: Dr. Campos Reason for Consultation: Atrial flutter Pt evaluation today including: conversation w/ patient, physical exam, chart review, lab review, review of studies, review of inpatient medication list, conversation w/ attending History of Present Illness Ms. Durham is a very pleasant 72-year-old female with a history significant for hypertension, breast cancer, and recent left total knee replacement on 2016. She was discharged home a few days ago and when she checked in the [facility] on 02/15/2017, she noticed that she did not feel well. Her symptoms over the past few days included dizziness, sweating, nausea, and then overall feeling of being ill. It was difficult for her to complete her therapy. Nursing staff , following therapy, noticed that her heart rate was tachycardic and recommended in ECG. The decision was then made to go to the emergency department, rather than performing an ECG. She was found to be in atrial flutter with rapid ventricular response. She denied palpitations, chest pain, syncope, near-syncope, shortness of breath, stroke or stroke-like symptoms. She denies bleeding such as melena, hematochezia, or hematuria. She has left lower extremity edema following knee surgery, but typically does not have edema. She has been on clonidine and diltiazem 240 mg daily for blood pressure control. She had been on a diuretic as well but this was replaced with spironolactone recently due to hypokalemia. Spironolactone, like the other diuretic, was being used mostly as an antihypertensive agent. It was increased from 25 mg to 50 mg 1 week ago. She denies a history of heart failure, cardiovascular disease or other atherosclerotic issues, diabetes, TIA/stroke. Upon admission, diltiazem was discontinued by hospitalist service. Metoprolol 50 mg twice daily was initiated. Her heart rate was much better controlled. Nursing staff recently took her for a walk in the hallway and her heart rate was well controlled. She did feel lightheaded and systolic blood pressure is in the 90's mmHg. Review of systems: As above and otherwise negative. Past Medical/Surgical History (1) Hypertension Nos (2) Iron Defic Anemia Nos (3) Osteoarthros Nos-Unspec (4) Sepsis (5) Abscess, gluteal, right (6) Atrial flutter with rapid ventricular response (7) Breast CA (8) Carpal Tunnel Syndrome (9) Hyperlipidemia Nec/Nos (10) Cystitis Nos (11) S/P total knee arthroplasty Family History Diabetes mellitus Mother had atrial fibrillation. Father with CHF. Social History Smoking Status: Former Smoker History of Alcohol Use: Yes (socially) Quit smoking in approximately 2005. Occasional alcohol. . Three children, but 1 . She also had a grandson who . She has no other grand children but does have 3 great grandchildren, although 2 were adopted following the of her grandson and therefore she is no longer allowed to be part of her life. She lives in her home with family. She is unaccompanied currently. Allergies Coded Allergies: Pineapple (Verified Allergy, Severe, RAW PINEAPPLE-BURNING FACE, TIGHTNESS IN THROAT, 02/17/17) Statins (Verified Adverse Reaction, Intermediate, MUSCLE ACHING, 02/17/17) HMG-CoA-R Inhibitors (Verified Adverse Reaction, Mild, STATINS- MUSCLE ACHES, 02/17/17) Acetaminophen (Verified Adverse Reaction, Unknown, decreased urine output , 02/17/17) Amlodipine (Verified Adverse Reaction, Unknown, BRADYCARDIA, 02/17/17) Amoxicillin (Verified Adverse Reaction, Unknown, nausea, 02/17/17) Ascorbate (Verified Adverse Reaction, Unknown, heart punds, tacchy and headache, 02/17/17) Aspirin (Verified Adverse Reaction, Unknown, upset stomach, 02/17/17) Beta-Carotene (Verified Adverse Reaction, Unknown, heart punds, tacchy and headache, 02/13/17) Casein (Verified Adverse Reaction, Unknown, heart punds, tacchy and headache, 02/17/17) Cholecalciferol (Verified Adverse Reaction, Unknown, heart punds, tacchy and headache, 02/13/17) Clavulanic Acid (Verified Adverse Reaction, Unknown, nausea, 02/17/17) Cupric Oxide (Verified Adverse Reaction, Unknown, heart punds, tacchy and headache, 02/13/17) Diclofenac (Verified Adverse Reaction, Unknown, wobbly, 02/13/17) Docosahexaenoic Acid (DHA) (Verified Adverse Reaction, Unknown, heart punds, tacchy and headache, 02/13/17) Eicosapentaenoic Acid (EPA) (Verified Adverse Reaction, Unknown, heart punds, tacchy and headache, 02/13/17) Ezetimibe (Verified Adverse Reaction, Unknown, chills, myalgia, 02/13/17) Ferrous Bisglycinate (Verified Adverse Reaction, Unknown, heart punds, tacchy and headache, 02/13/17) Folic Acid (Verified Adverse Reaction, Unknown, heart punds, tacchy and headache, 02/17/17) Gemfibrozil (Verified Adverse Reaction, Unknown, EXTREME FATIGUE, 02/17/17) Hydrocodone (Verified Adverse Reaction, Unknown, decreased urine output, ) Iron (Verified Adverse Reaction, Unknown, heart punds, tacchy and headache , 02/13/17) Magnesium Oxide (Verified Adverse Reaction, Unknown, heart punds, tacchy and headache, 02/17/17) Olmesartan (Verified Adverse Reaction, Unknown, cough, fatigue, 02/13/17) POLLEN (Verified Adverse Reaction, Unknown, nasal congestion, 02/13/17) Pyridoxine (Verified Adverse Reaction, Unknown, heart punds, tacchy and headache, 02/17/17) Riboflavin (Verified Adverse Reaction, Unknown, heart punds, tacchy and headache, 02/17/17) Sodium Benzoate (Verified Adverse Reaction, Unknown, heart punds, tacchy and headache, 02/17/17) Telmisartan (Verified Adverse Reaction, Unknown, flu-like symptoms, ) Thiamine (Verified Adverse Reaction, Unknown, heart punds, tacchy and headache, 02/17/17) Varenicline (Verified Adverse Reaction, Unknown, headache, nausea and vivid dreams, 02/13/17) Vitamin B12 (Verified Adverse Reaction, Unknown, heart punds, tacchy and headache, 02/13/17) Vitamin E (Verified Adverse Reaction, Unknown, heart punds, tacchy and headache, 02/13/17) Zinc Oxide (Verified Adverse Reaction, Unknown, heart punds, tacchy and headache, 02/13/17) Medications Current Inpatient Medications Medications (Trade) Dose Ordered Sig/David Route Start Time Stop Time Status Last Admin Dose Admin Acetaminophen (Tylenol Tab) 650 mg Q4H PRN PO 02/17/17 19:45 03/19/17 19:44 Al Hydrox/Mg Hydrox/Simethicone (Maalox Max Susp) 15 ml Q4H PRN PO 02/17/17 19:45 03/19/17 19:44 Magnesium Hydroxide (Milk Of Magnesia Susp) 30 ml Q12H PRN PO 02/17/17 19:45 03/19/17 19:44 Ondansetron HCl (Zofran Inj) 4 mg Q6H PRN IV 02/17/17 19:45 03/19/17 19:44 Morphine Sulfate (MoRPHine SULFATE INJ) 2 mg Q30M PRN IV 02/17/17 19:45 03/03/17 19:44 Metoprolol Tartrate (Lopressor Tab) 50 mg BID PO 02/17/17 21:00 03/19/17 20:59 02/18/17 07:52 50 MG Clonidine HCl (Catapres Tab) 0.2 mg HS PO 02/17/17 21:00 03/19/17 20:59 02/17/17 21:06 0.2 MG Clonidine HCl (Catapres Tab) 0.15 mg QAM PO 02/18/17 09:00 03/20/17 08:59 02/18/17 07:52 0.15 MG Docusate Sodium (coLACE CAP) 100 mg BID PO 02/17/17 21:00 03/19/17 20:59 02/18/17 07:52 100 MG Paroxetine HCl (pAXil TAB) 20 mg QAM PO 02/18/17 09:00 03/20/17 08:59 02/18/17 07:51 20 MG Senna/Docusate Sodium (Senokot S Tab) 1 tab DAILY PRN PO 02/17/17 19:45 03/19/17 19:44 02/18/17 07:55 1 TAB Metoprolol Tartrate (Lopressor Iv) 5 mg Q4 PRN IV 02/17/17 19:45 03/19/17 19:44 Oxycodone HCl (Roxicodone Immediate Rel Tab) 10 mg Q6 PRN PO 02/17/17 19:45 03/03/17 19:44 Tramadol HCl (Ultram Tab) `1-2 tabs for pain 1 tab ... Q4 PRN PO 02/17/17 20:30 03/19/17 19:44 02/18/17 07:51 100 MG Enoxaparin Sodium (Lovenox Inj) 100 mg Q12 SQ 02/17/17 21:00 03/19/17 20:59 02/18/17 07:55 100 MG Polyethylene (Miralax Powder Packet) 17 gm DAILY PO 02/19/17 09:00 03/21/17 08:59 Physical Exam Vital Signs Past 12 Hours Date Time Temp Pulse Resp B/P (MAP) Pulse Ox O2 Delivery O2 Flow Rate FiO2 02/18/17 12:00 Room Air 02/18/17 11:50 36.8 69 18 92/57 (69) 96 Room Air 02/18/17 08:00 Room Air 02/18/17 07:49 37.1 77 20 127/68 (87) 92 Room Air 02/18/17 04:00 Room Air 02/18/17 03:46 82 109/71 02/18/17 03:44 36.9 20 92 Room Air Gen.: No acute distress. Alert and oriented. HEENT: Anicteric sclera. Neck: No JVD. No bruits. Normal carotid upstrokes bilaterally. Cardiac: PMI was nonpalpable. No ventricular heave. Irregularly irregular. Normal S1-S2. No murmurs, rubs, or gallops. Pulmonary: Clear to auscultation bilaterally without wheezes, rales, or rhonchi. Abdomen: Soft, nontender, nondistended, with normoactive bowel sounds. No bruits noted. Extremities: 2+ radial pulses bilaterally. 2+ posterior tibialis pulses bilaterally. Left leg ecchymosis (s/p TKA). Trace left lower extremity edema. No cyanosis. Psychiatric: Affect appears appropriate. Data Laboratory Results: Last 24 Hours Test 02/17/17 16:44 02/17/17 16:53 02/18/17 09:07 White Blood Count 11.20 K/uL 8.24 K/uL Red Blood Count 4.49 M/uL 4.10 M/uL Hemoglobin 11.9 g/dL 10.8 g/dL Hematocrit 38.2 % 35.1 % Mean Corpuscular Volume 85.1 fL 85.6 fL Mean Corpuscular Hemoglobin 26.5 pg 26.3 pg Mean Corpuscular Hemoglobin Concent 31.2 g/dl 30.8 g/dl Platelet Count 361 K/uL 316 K/uL Mean Platelet Volume 10.4 fL 10.1 fL Neutrophils (%) (Auto) 64.2 % 58.2 % Lymphocytes (%) (Auto) 23.8 % 30.5 % Monocytes (%) (Auto) 10.1 % 8.7 % Eosinophils (%) (Auto) 0.2 % 0.8 % Basophils (%) (Auto) 0.2 % 0.2 % Neutrophils # (Auto) 7.20 K/uL 4.79 K/uL Lymphocytes # (Auto) 2.66 K/uL 2.51 K/uL Monocytes # (Auto) 1.13 K/uL 0.72 K/uL Eosinophils # (Auto) 0.02 K/uL 0.07 K/uL Basophils # (Auto) 0.02 K/uL 0.02 K/uL RDW Standard Deviation 49.6 fL 50.5 fL RDW Coefficient of Variation 16.0 % 16.2 % Immature Granulocyte % (Auto) 1.5 % 1.6 % Immature Granulocyte # (Auto) 0.17 K/uL 0.13 K/uL Nucleated RBC Absolute Count (auto) 0.09 K/uL Nucleated Red Blood Cells % 0.8 % Prothrombin Time 11.1 SECONDS Prothromb Time International Ratio 1.0 Activated Partial Thromboplast Time 29.1 SECONDS Partial Thromboplastin Ratio 1.1 Sodium Level 139 mmol/L 143 mmol/L Potassium Level 4.0 mmol/L 3.8 mmol/L Chloride Level 105 mmol/L 106 mmol/L Carbon Dioxide Level 27 mmol/L 28 mmol/L Anion Gap 7.0 mmol/L 9.0 mmol/L Blood Urea Nitrogen 26 mg/dl 26 mg/dl Creatinine 1.30 mg/dl 1.20 mg/dl Est Creatinine Clear Calc Drug Dose 48.2 ml/min 51.8 ml/min Estimated GFR () 48.1 53.0 Estimated GFR (Non- 41.5 45.8 BUN/Creatinine Ratio 19.9 21.3 Random Glucose 106 mg/dl 115 mg/dl Calcium Level 8.7 mg/dl 8.3 mg/dl Magnesium Level 2.3 mg/dl Total Bilirubin 0.5 mg/dl Direct Bilirubin 0.1 mg/dl Aspartate Amino Transf (AST/SGOT) 15 U/L Alanine Aminotransferase (ALT/SGPT) 18 U/L Alkaline Phosphatase 66 U/L Total Creatine Kinase 199 U/L Creatine Kinase MB 1.2 ng/ml Creatine Kinase MB Ratio 0.6 Total Protein 7.0 gm/dl Albumin 2.8 gm/dl Thyroid Stimulating Hormone (TSH) 1.370 uIu/ml Bedside Troponin I < 0.030 ng/ml ECGs personally reviewed. ECG 02/18/2017 at 7:24 a.m.: Atrial flutter with variable AV block. 84 bpm. Nonspecific T-wave abnormality. ECG 02/17/2017 at 4:48 p.m.: Atrial flutter with variable AV block at 132 bpm. Nonspecific T-wave abnormality. Atrial flutter new compared to 01/25/2017 ECG. Telemetry reviewed: Atrial flutter with improved heart rate control on metoprolol. Echocardiogram images personally reviewed from 02/18/2017: Hyperdynamic LV systolic function. No wall motion abnormalities. Mitral annular calcification. Normal RVSP. Assessment & Plan ASSESSMENT/PLAN: 1. Atrial flutter: The true onset is not known however she has been feeling poorly for the past several days, since 02/15/2017. We discussed the diagnosis in detail with the help of a diagram. We discussed multiple treatment strategies such as rate control, rhythm control, cardioversion, and ablation. She seems to be doing well with rate control, although atrial flutter is typically difficult to rate control. For now, continue metoprolol at current dose. She has adequate rate control with exertion thus far. Continue anticoagulation for stroke risk reduction. She would like to avoid Coumadin. Start Eliquis 5 mg twice daily and discontinue Lovenox. This was discussed with Dr. Campos. She will be seen in the office in 3-4 weeks. If she remains in atrial flutter, we discussed cardioversion electrically and electively as an outpatient. Therefore, transesophageal echo would no longer be needed. We also discussed the fact that if rate control strategy fails, we may proceed with transesophageal echo and cardioversion. She may spontaneously convert in the meantime. 2. History of hypertension: She has been hypotensive intermittently. Would continue to hold spironolactone. Diltiazem has been discontinued by primary service. 3. Hypotension: Recommend decreasing clonidine. 4. Disposition: Cardiology will continue to follow. Plan care has been discussed with Dr. Campos.
--- NOTE | 2017-02-18 15:07 | ECHOCARDIOGRAM REPORT ---
*NOTICE TO RECEIVING CONSTITUTION PARTY AGENCY This information is strictly Confidential and protected under [place] law. [place] law prohibits you from making any further disclosure of this information unless further disclosure is expressly permitted by the written consent of the person to whom it pertains or is authorized by law. A general authorization for the release of medical or other information is not sufficient for this purpose. Hospital accepts no responsibility if the information is made available to any other person, INCLUDING THE PATIENT. Interpretation Summary * Name: BORA VASQUEZ Study Date: 02/18/2017 08:37 AM BP: 109/71 mmHg * Patient Location: .2E\S\E210\S\1 HR: 88 * : 1945 (M/d/yyy) Gender: Female Height: 66 in * Age: 72 yrs Ethnicity: CA Weight: 221 lb * Ordering Physician: Andres Blackmon * Referring Physician: Sherrie Phillip * Performed By: Finesse Matthew RDCS * * Reason For Study: A-flutter * BSA: 2.1 m2 * -- Conclusions -- * 1. Normal left ventricular size with hyperdynamic systolic function. EF >70%. No regoinal wall motion abnormalities. Mild concentric left ventricular hypertrophy. * 2. There is moderate mitral annular calcification. * 3. Normal estimated right ventricular systolic pressure; RVSP 23 mmHg. * 4. Compared to prior study on 03/10/2013, LV systolic function is now hyperdynamic. Rhythm is now atrial flutter (rate controlled). Procedure Details * A complete two-dimensional transthoracic echocardiogram was performed (2D, M-mode, Doppler and color flow Doppler). * The study was technically adequate. Left Ventricle * Normal left ventricular size with hyperdynamic systolic function. EF >70%. No regoinal wall motion abnormalities. Mild concentric left ventricular hypertrophy. Right Ventricle * The right ventricle is normal in size and function. * The right ventricular systolic function is normal as assessed by tricuspid annular plane systolic excursion (TAPSE) (normal >1.5 cm). Atria * The left atrium is borderline dilated. * Right atrial size is normal. * There is no evidence of atrial septal defect, but resolution does not allow assessment for a patent foramen ovale. Mitral Valve * There is moderate mitral annular calcification. * There is no mitral valve stenosis. * There is trace mitral regurgitation. Tricuspid Valve * The tricuspid valve is not well visualized, but is grossly normal. * There is no tricuspid stenosis. * There is trace tricuspid regurgitation. Aortic Valve * The aortic valve is trileaflet. * No hemodynamically significant valvular aortic stenosis. * No aortic regurgitation is present. Pulmonic Valve * The pulmonary valve is inadequately visualized, but the Doppler data is adequate for interpretation. * There is no pulmonic valvular stenosis. * There is no significant pulmonary regurgitation. Great Vessels * The aortic root is normal size. * Ascending aorta of normal dimension * Aortic arch of normal dimension. Pericardium/Pleural * There is no pericardial effusion. Great Vessels * Normal inferior vena cava size and collapsability with sniff indicates a normal right atrial pressure of 3 mmHg Left Ventricular Diastolic Function * Grade I diastolic dysfunction, (abnormal relaxation pattern). MMode 2D Measurements and Calculations IVSd 1.3 cm IVSs 1.9 cm LVIDd 4.4 cm LVIDs 2.4 cm LVPWd 1.3 cm LVPWs 1.9 cm IVS/LVPW 1.1 FS 44.3 % EDV(Teich) 87.6 ml ESV(Teich) 21.2 ml EF(Teich) 75.8 % EDV(cubed) 85.1 ml ESV(cubed) 14.7 ml EF(cubed) 82.7 % % IVS thick 43.1 % % LVPW thick 52.1 % LV mass(C)d 217.9 grams LV mass(C)dI 104.4 grams/m\S\2 LV mass(C)s 198.2 grams LV mass(C)sI 95.0 grams/m\S\2 SV(Teich) 66.4 ml SI(Teich) 31.8 ml/m\S\2 SV(cubed) 70.4 ml SI(cubed) 33.7 ml/m\S\2 Ao root diam 3.2 cm Ao root area 7.9 cm\S\2 ACS 1.8 cm LA dimension 4.6 cm asc Aorta Diam 3.0 cm LA/Ao 1.4 LVOT diam 1.9 cm LVOT area 2.8 cm\S\2 LVAd ap4 22.1 cm\S\2 LVLd ap4 7.4 cm EDV(MOD-sp4) 55.0 ml LVAs ap4 10.4 cm\S\2 LVLs ap4 6.0 cm ESV(MOD-sp4) 16.0 ml EF(MOD-sp4) 70.9 % LVAd ap2 21.0 cm\S\2 LVLd ap2 7.3 cm EDV(MOD-sp2) 50.0 ml LVAs ap2 9.6 cm\S\2 LVLs ap2 5.7 cm ESV(MOD-sp2) 14.0 ml EF(MOD-sp2) 72.0 % SV(MOD-sp4) 39.0 ml SI(MOD-sp4) 18.7 ml/m\S\2 SV(MOD-sp2) 36.0 ml SI(MOD-sp2) 17.3 ml/m\S\2 Doppler Measurements and Calculations MV E max trisha 74.5 cm/sec MV A max trisha 95.3 cm/sec MV E/A 0.78 MV dec time 0.21 sec Ao V2 max 146.4 cm/sec Ao max PG 8.6 mmHg Ao max PG (full) 5.6 mmHg VAL(V,A) 1.7 cm\S\2 VAL(V,D) 1.7 cm\S\2 LV V1 max PG 3.0 mmHg LV V1 max 86.6 cm/sec PA V2 max 99.9 cm/sec PA max PG 4.0 mmHg PA acc slope 1652.2 cm/sec\S\2 PA acc time 0.06 sec PI end-d trisha 114.4 cm/sec TR max trisha 223.0 cm/sec RVSP(TR) 22.9 mmHg RAP systole 3.0 mmHg PA pr(Accel) 50.5 mmHg
[2017-02-18] MEDS: APIXABAN 2.5 MG TAB PO SCH (19:49)
[2017-02-19] VITALS (8 sets, daily range): BP systolic 103–141; BP diastolic 63–99; PULSE 66–134; TEMP 36.8–37.3; O2SAT 92–95
[2017-02-19] MEDS: TRAMADOL HCL 50 MG TAB PO PRN ×3 (02:30→15:39)
[2017-02-19] MEDS: DOCUSATE SODIUM/SENNA 50/8.6MG TAB PO PRN (07:49)
[2017-02-19] MEDS: PAROXETINE 20 MG TAB PO SCH (07:49)
[2017-02-19] MEDS: DOCUSATE SODIUM 100 MG CAP PO SCH (07:49)
[2017-02-19] MEDS: METOPROLOL TARTRATE 50 MG TAB PO SCH (07:50)
[2017-02-19] MEDS: APIXABAN 2.5 MG TAB PO SCH (07:55)
--- NOTE | 2017-02-19 08:08 | Hospitalist Progress Note ---
Hospitalist Progress Note Date of Service Feb 19, 2017. (Deana Augustine PA-C) Subjective Pt evaluation today including: conversation w/ patient, physical exam, chart review, lab review, review of studies Pain: none PO Intake: good Voiding: no voiding problems The patient was seen and examined this morning. Pt reports doing well today, she has no acute complaints. She denies being feel heart palpitations or flutter whenever her heart rate is elevated. She does report feeling lightheaded at times whenever she should is doing exertional activities. She denies lightheadedness when sitting at rest even with elevated heart rate. She has been ambulating about the room without difficulty. Her home health PT OT plans arebeing coordinated by case management as she doesn't start regular outpatient PT until next Sunday. She does have an appointment with Dr. Min in the office on Sunday for f/u of the knee. . Additional Comments: Constitutional: No fever, sweats or chills Eyes: No diplopia, no worsening or blurred vision ENT: normal hearing, no trouble swallowing Respiratory: No cough, sputum, dyspnea at rest or on exertion Cardiovascular: No chest pain, tightness or palpitations Abdomen: No pain, nausea, vomiting, diarrhea or constipation Musculoskeletal: No joint pain, calf pain, swelling Neurologic: No weakness, numbness/tingling, or balance problems Psychiatric: No anxiety or depression Skin: No rash or itch (Deana Augustine PA-C) Objective Vital Signs Date Time Temp Pulse Resp B/P (MAP) Pulse Ox O2 Delivery O2 Flow Rate FiO2 02/19/17 06:08 94 02/19/17 05:19 75 02/19/17 05:06 133 141/87 02/19/17 04:35 134 02/19/17 04:00 Room Air 02/19/17 03:50 37.3 85 20 126/91 (103) 95 Room Air 02/19/17 02:13 93 02/19/17 00:00 Room Air 02/18/17 23:50 37.0 105 20 134/77 (96) 93 Room Air 02/18/17 21:55 75 02/18/17 21:00 96 02/18/17 20:00 Room Air 02/18/17 19:15 37.3 110 20 134/71 (92) 94 Room Air 02/18/17 16:00 Room Air 02/18/17 15:23 36.9 72 18 121/65 (83) 98 Room Air 02/18/17 12:00 Room Air 02/18/17 11:50 36.8 69 18 92/57 (69) 96 Room Air 02/18/17 08:00 Room Air (Deana Augustine PA-C) Physical Exam Notes: General: awake, alert, no apparent distress, +overweight Head: Normocephalic, atraumatic ENT: PERRL, EOMI, no pharyngeal exudate, mucous membranes moist Chest: Slightly tachycardic, regular rhythm, on room air, no adventitious breath sounds Cardiac: Regular rate and rhythm, no murmur, no JVD, normal peripheral pulses, good capillary refill Abdominal: NABS x 4 quadrants, soft, nontender to palpation, no rebound, guarding or tenderness Extremities:LLE slightly more swollen compared to the right, nonpitting edema, no peripheral erythema, calfs nontender to palpation Psych: Normal mood and affect Neuro: AAO x 3, strength intact bilaterally and related 5/5, no motor deficits, speech is clear, no peripheral sensory deficits (Deana Augustine, HERBERTC) Laboratory Results Last 24 Hours Test 02/18/17 09:07 02/19/17 06:19 White Blood Count 8.24 K/uL Red Blood Count 4.10 M/uL Hemoglobin 10.8 g/dL Hematocrit 35.1 % Mean Corpuscular Volume 85.6 fL Mean Corpuscular Hemoglobin 26.3 pg Mean Corpuscular Hemoglobin Concent 30.8 g/dl Platelet Count 316 K/uL Mean Platelet Volume 10.1 fL Neutrophils (%) (Auto) 58.2 % Lymphocytes (%) (Auto) 30.5 % Monocytes (%) (Auto) 8.7 % Eosinophils (%) (Auto) 0.8 % Basophils (%) (Auto) 0.2 % Neutrophils # (Auto) 4.79 K/uL Lymphocytes # (Auto) 2.51 K/uL Monocytes # (Auto) 0.72 K/uL Eosinophils # (Auto) 0.07 K/uL Basophils # (Auto) 0.02 K/uL RDW Standard Deviation 50.5 fL RDW Coefficient of Variation 16.2 % Immature Granulocyte % (Auto) 1.6 % Immature Granulocyte # (Auto) 0.13 K/uL Sodium Level 143 mmol/L Potassium Level 3.8 mmol/L Chloride Level 106 mmol/L Carbon Dioxide Level 28 mmol/L Anion Gap 9.0 mmol/L Blood Urea Nitrogen 26 mg/dl Creatinine 1.20 mg/dl Est Creatinine Clear Calc Drug Dose 51.8 ml/min Estimated GFR () 53.0 Estimated GFR (Non- 45.8 BUN/Creatinine Ratio 21.3 Random Glucose 115 mg/dl Calcium Level 8.3 mg/dl (Deana Augustine, CRYS) Assessment and Plan 72-year-old female with new-onset atrial flutter with RVR on admission, recent left TKA on 02/13 and she was in rehab at [facility] when she developed the atrial flutter New onset atrial flutter with RVR: rates are now controlled in the 60's while at rest, controlled with Lopressor 50mg BID - Diltiazem was stopped, will continue to hold - fully anticoagulated on Lovenox 100mg q12 --> transition to Eliquis 5 mg BID, continue - Cardiology on board- planned for outpatient f/u and possible cardioversion in 3 weeks. Pt has set up for a Holter monitor evaluation on 02/28/17 24 hours. - Echocardiogram 02/18/17 * 1. Normal left ventricular size with hyperdynamic systolic function. EF >70%. No regoinal wall motion abnormalities. Mild concentric left ventricular hypertrophy. * 2. There is moderate mitral annular calcification. * 3. Normal estimated right ventricular systolic pressure; RVSP 23 mmHg. * 4. Compared to prior study on 03/10/2013, LV systolic function is now hyperdynamic. Rhythm is now atrial flutter (rate controlled). HTN: - BP looks improved with decreased regimen- Clonidine to 0.1mg HS (from 0.2mg) and decrease AM dose to 0.1mg from 0.15mg - Patient continued to have bouts of tachycardia, cardiology recommended increase of metoprolol to 100 mg by mouth BID - prior to admission she was on Diltiazem 240mg as well which has been stopped - continue to hold the time of discharge Constipation: - first BM in a week was 02/17, hard and difficult to pass - resume miralax daily scheduled, good PO intake, increase activity - patient is agreeable to a Dulcolax suppository if she does not have a bowel movement today. s/p left TKA: - therapy ordered, was at rehab when atrial flutter started - recovering well, pain control with Ultram - Plan for home health services until next Sunday when outpatient PT is initiated- CM assisting. - will follow up with orthopedic surgery, Dr. Min as previously scheduled next Sunday Depression: -continue Paxil 20 mg daily DVT prophylaxis: Lovenox CODE STATUS: FULL CODE Disposition: From N, will need to determine if pt goes back to rehab or if home (Deana Augustine, PADivinaC) History see discharge summary done on same date of service for my note (Julee Cordero MD)
[2017-02-19 08:21] LABS: BASO % 0.2 %; BASO ABS # 0.02 K/uL (0-0.2); COMPLETE YES; EOS % 1.1 %; HEMATOCRIT 36.9 % (37-47); IG% 1.8 %; LYMPH % 33.1 %; LYMPH ABS # 2.98 K/uL (1.2-3.4); MEAN CORPUSCULAR HEMOGLOBIN 27.1 pg (25-34); MEAN CORPUSCULAR HGB CONC 31.2 g/dl (32-36); MEAN PLATELET VOLUME 10.5 fL (7.4-10.4); MONO % 11.7 %; NEUT % 52.1 %; PLATELET COUNT 303 K/uL (130-400); RED BLOOD COUNT 4.24 M/uL (4.2-5.4); WHITE BLOOD COUNT 9.01 K/uL (4.8-10.8)
[2017-02-19] MEDS ORDERED: POLYETHYLENE (MIRALAX) 17 GM PACK PO SCH (09:00)
[2017-02-19] MEDS ORDERED: CLONIDINE HCL 0.1 MG TAB PO SCH (09:00)
--- NOTE | 2017-02-19 09:23 | Cardiology Follow-Up ---
Subjective Date of Service: Feb 19, 2017. Pt evaluation today including: conversation w/ patient, physical exam, chart review, lab review, review of studies, review of inpatient medication list, conversation w/ attending History of Present Illness The ill feeling that brought her to the hospital has resolved. She denies palpitations, syncope, near-syncope, chest pain, or shortness of breath. Her heart rate was well controlled yesterday throughout most of the day but overnight and this morning she is having intermittent episodes of rapid ventricular response while in atrial flutter. She did received 5 mg of IV metoprolol on 1 occasion overnight. She denies bleeding. Review of systems: As above. Social History Smoking Status: Former Smoker History of Alcohol Use: Yes (socially) Medications Current Inpatient Medications Medications (Trade) Dose Ordered Sig/David Route Start Time Stop Time Status Last Admin Dose Admin Acetaminophen (Tylenol Tab) 650 mg Q4H PRN PO 02/17/17 19:45 03/19/17 19:44 Al Hydrox/Mg Hydrox/Simethicone (Maalox Max Susp) 15 ml Q4H PRN PO 02/17/17 19:45 03/19/17 19:44 Magnesium Hydroxide (Milk Of Magnesia Susp) 30 ml Q12H PRN PO 02/17/17 19:45 03/19/17 19:44 Ondansetron HCl (Zofran Inj) 4 mg Q6H PRN IV 02/17/17 19:45 03/19/17 19:44 Morphine Sulfate (MoRPHine SULFATE INJ) 2 mg Q30M PRN IV 02/17/17 19:45 03/03/17 19:44 Docusate Sodium (coLACE CAP) 100 mg BID PO 02/17/17 21:00 03/19/17 20:59 02/19/17 07:49 100 MG Paroxetine HCl (pAXil TAB) 20 mg QAM PO 02/18/17 09:00 03/20/17 08:59 02/19/17 07:49 20 MG Senna/Docusate Sodium (Senokot S Tab) 1 tab DAILY PRN PO 02/17/17 19:45 03/19/17 19:44 02/19/17 07:49 1 TAB Metoprolol Tartrate (Lopressor Iv) 5 mg Q4 PRN IV 02/17/17 19:45 03/19/17 19:44 02/19/17 05:06 5 MG Oxycodone HCl (Roxicodone Immediate Rel Tab) 10 mg Q6 PRN PO 02/17/17 19:45 03/03/17 19:44 02/19/17 07:54 10 MG Tramadol HCl (Ultram Tab) `1-2 tabs for pain 1 tab ... Q4 PRN PO 02/17/17 20:30 03/19/17 19:44 02/19/17 02:30 100 MG Polyethylene (Miralax Powder Packet) 17 gm DAILY PO 02/19/17 09:00 03/21/17 08:59 02/19/17 07:49 17 GM Clonidine HCl (Catapres Tab) 0.1 mg HS PO 02/18/17 21:00 03/19/17 20:59 02/18/17 19:49 0.1 MG Clonidine HCl (Catapres Tab) 0.1 mg QAM PO 02/19/17 09:00 03/20/17 08:59 02/19/17 07:50 0.1 MG Apixaban (Eliquis Tab) 5 mg BID PO 02/18/17 21:00 03/20/17 20:59 02/19/17 07:55 5 MG Metoprolol Tartrate (Lopressor Tab) 100 mg BID PO 02/19/17 21:00 03/19/17 20:59 UNV Metoprolol Tartrate (Lopressor Tab) 50 mg NOW STAT PO 02/19/17 09:10 02/19/17 09:11 UNV Objective Vital Signs Past 12 Hours Date Time Temp Pulse Resp B/P (MAP) Pulse Ox O2 Delivery O2 Flow Rate FiO2 02/19/17 08:02 36.8 133 19 141/99 (113) 93 Room Air 02/19/17 08:00 Room Air 02/19/17 06:08 94 02/19/17 05:19 75 02/19/17 05:06 133 141/87 02/19/17 04:35 134 02/19/17 04:00 Room Air 02/19/17 03:50 37.3 85 20 126/91 (103) 95 Room Air 02/19/17 02:13 93 02/19/17 00:00 Room Air 02/18/17 23:50 37.0 105 20 134/77 (96) 93 Room Air 02/18/17 21:55 75 Last Recorded Weight-Kilograms: 99.200 Physical Exam Gen.: No acute distress. Alert and oriented. HEENT: Anicteric sclera. Neck: No JVD. Cardiac: No ventricular heave. Irregularly irregular and tachycardic. Normal S1- S2. No murmurs, rubs, or gallops. Pulmonary: Clear to auscultation bilaterally without wheezes, rales, or rhonchi. Abdomen: Soft, nontender, nondistended, with normoactive bowel sounds. No bruits noted. Extremities: 2+ posterior tibialis pulses bilaterally. Left leg ecchymosis (s/p TKA). Trace left lower extremity edema. No cyanosis. Psychiatric: Affect appears appropriate. Data Laboratory Results: Last 24 Hours Test 02/19/17 06:19 White Blood Count 9.01 K/uL Red Blood Count 4.24 M/uL Hemoglobin 11.5 g/dL Hematocrit 36.9 % Mean Corpuscular Volume 87.0 fL Mean Corpuscular Hemoglobin 27.1 pg Mean Corpuscular Hemoglobin Concent 31.2 g/dl Platelet Count 303 K/uL Mean Platelet Volume 10.5 fL Neutrophils (%) (Auto) 52.1 % Lymphocytes (%) (Auto) 33.1 % Monocytes (%) (Auto) 11.7 % Eosinophils (%) (Auto) 1.1 % Basophils (%) (Auto) 0.2 % Neutrophils # (Auto) 4.70 K/uL Lymphocytes # (Auto) 2.98 K/uL Monocytes # (Auto) 1.05 K/uL Eosinophils # (Auto) 0.10 K/uL Basophils # (Auto) 0.02 K/uL RDW Standard Deviation 51.2 fL RDW Coefficient of Variation 16.1 % Immature Granulocyte % (Auto) 1.8 % Immature Granulocyte # (Auto) 0.16 K/uL ECG personally reviewed. ECG 02/19/2017: Atrial flutter at 84 bpm. Variable AV block. LVH. Telemetry personally reviewed. Rate controlled for much of yesterday in atrial flutter but overnight and this morning, having bursts of rapid ventricular response, including while sitting in bed with heart rates up to 130s. Assessment and Plan ASSESSMENT/PLAN: 1. Atrial flutter: The true onset is not known however she has been feeling poorly for the past several days, since 02/15/2017. She was well rate controlled yesterday until overnight and this morning. Increase metoprolol to 100 mg twice daily. If we cannot achieve adequate rate control, would advocate transesophageal echo and cardioversion while hospitalized. If her heart rate overall is adequately controlled, can discharge on anticoagulation and rate control strategy and elective cardioversion can be done as an outpatient after 4 weeks of adequate anticoagulation, without transesophageal echo. She prefers to avoid transesophageal echo if possible. Close follow-up in the Cardiology Clinic recommended. An appointment is being made for her in March 19. She will have a Holter monitor in approximately 1 week to better assess her heart rate and rhythm as an outpatient. Continue anticoagulation for stroke risk reduction. 2. History of hypertension: Mildly hypertensive at times no. Metoprolol titrated as above. 3. Hypotension: Clonidine has been decreased due to hypotension. Increasing metoprolol for rate control and she is now intermittently hypertensive. 4. Disposition: Plan of care discussed with Dr. Cordero, primary hospitalist. Follow-up being arranged as above with Holter monitor in approximately 1 week.
[2017-02-19] MEDS ORDERED: METOPROLOL TARTRATE 50 MG TAB PO ONE (09:30)
--- NOTE | 2017-02-19 10:27 | Clinical Documentation Query ---
CLINICAL DOCUMENTATION QUERY Ms. ELDER, In your clinical opinion does this patient have: ( x ) Chronic kidney disease, stage 3 ( ) Other explanation of clinical findings (Please Explain) ( ) Unable to determine (Please Define) ( ) Need to Discuss ( ) Not Agree The medical record reflects the following clinical findings, treatment, and risk factors. Clinical Indicators: 72 yo female presenting with A flutter. Review of historical GFR values over the past 2 years reveals a range of 41.5-50.8. Treatment: monitor PRP's, treat comorbid conditions Risk Factors: HTN, age, new onset A flutter Please clarify and document your clinical opinion in the progress notes and discharge summary. Terms such as "probable", "suspected", "likely", "questionable", "possible", or "still to be ruled out" are acceptable. IF IN AGREEMENT, YOU MUST DOCUMENT ABOVE DIAGNOSTIC STATEMENT IN DAILY PROGRESS NOTES AND DISCHARGE SUMMARY. This document is not part of the patient's record. Thank You, Nikia Fowler RN [phone]
[2017-02-19] MEDS ORDERED: CTP1 PO (14:08)
[2017-02-19] MEDS ORDERED: METO50TA16 PO (14:08)
--- NOTE | 2017-02-19 14:14 | Discharge Instructions ---
Discharge Instructions Date of Service Feb 19, 2017. Admission Reason for Admission: Atrial Flutter With Rapid Ventricular Response Discharge Discharge Diagnosis / Problem: Atrial flutter with rapid ventricular response Discharge Goals Goal(s): Decrease discomfort, Improve function Activity Recommendations Activity Limitations: resume your previous activity Lifting Limitations: none Exercise/Sports Limitations: none May Resume Sexual Activity: when tolerated Shower/Bathe: no limitations Driving or Machine Use: Do not drive until off narcotic medications . Instructions / Follow-Up Instructions / Follow-Up You were admitted to [facility] with feeling ill, dizziness and lightheadedness and diagnosed with atrial flutter with rapid ventricular response. During your stay here your antihypertensive regimen was changed. Cardiology was consulted and recommended the following: Metoprolol tartrate 100 mg twice daily Clonidine 0.1 mg every morning and evening before bed Eliquis 5 mg twice daily Follow up: Follow up with your Primary Care Provider within 1 week. An appointment has been requested for you. Follow up with Cardiology as already scheduled: 02/28/17 at 10:30 AM for Holter monitor placement 03/01/17 at 10:30 AM for Holter monitor removal 03/19/17 at 10:30 AM for follow up Follow up with physical therapy with home health agency for the next week until you start your normally scheduled PT/OT for your recent knee replacement. Current Hospital Diet Patient's current hospital diet: Regular Diet Discharge Diet Recommended Diet: Regular Diet Procedures Procedures Performed: None Pending Studies Studies pending at discharge: no Laboratory Results Lipid Panel Test 02/14/17 05:33 Range/Units Triglycerides Level 93 0-150 mg/dl Cholesterol Level 205 H 0-200 mg/dl HDL Cholesterol 46 mg/dl Cholesterol/HDL Ratio 4.5 LDL Cholesterol, Calculated 140 mg/dl Medical Emergencies . Who to Call and When: Medical Emergencies: If at any time you feel your situation is an emergency, please call 911 immediately. . Non-Emergent Contact Non-Emergency issues call your: Primary Care Provider, Television Mechanic Call Non-Emergent contact if: you have a fever, temperature is above 100.5, your pain is not controlled, your pain is worsening, your pain is unusual for you, your pain is concerning you, you have any medication questions Chest pain, shortness of breath, abdominal pain, nausea, vomiting, lightheadedness, dizziness or if you have any other concerns regarding your health. . Past History Medical & Surgical History: (1) Atrial flutter with rapid ventricular response . "Provider Documentation" section prepared by Violeta Augustine. . VTE Core Measure Inpt VTE Proph given/why not?: Other Anticoagulation, T.E.D. Stockings, SCD's
[2017-02-19] MEDS ORDERED: ELQ25 PO (14:15)
--- NOTE | 2017-02-19 14:49 | Discharge Summary ---
Discharge Summary Date of Service Feb 19, 2017. (Deana Augustine PA-C) Discharge Summary Admission Date: Feb 17, 2017 at 19:50 Discharge Date: Feb 19, 2017 Discharge Disposition: Home with services Principal Diagnosis: Atrial flutter with rapid ventricular response Problems/Secondary Diagnoses: atrial flutter with RVR on admission, recent left TKA, HTN, constipation, depression, CKD stage III Immunizations: Have You Had Influenza Vaccine: Yes History of Tetanus Vaccine?: UTD History of Pneumococcal: Yes History of Hepatitis B Vaccine: Yes Consultations: cardiology (Deana Augustine PA-C) Medication Reconciliation New Medications: Apixaban (Eliquis) 2.5 Mg Tab 5 MG PO BID for 30 Days, #120 TAB Clonidine HCl (Clonidine HCl) 0.1 Mg Tab 0.1 MG PO AMHS for 30 Days, #60 TAB Metoprolol Tartrate (Lopressor) (Lopressor) 50 Mg Tab 100 MG PO BID for 30 Days, #120 TAB Continued Medications: Cholecalciferol (Vitamin D3) 2,000 Unit Tab 2000 INTUNIT PO QAM Docusate Sodium (Docusate Sodium) 100 Mg Cap 100 MG PO BID for 30 Days, #60 CAP Magnesium Citrate (Magnesium Citrate) Unknown Strength Liz Unknown Dose PO DAILY TAKE 1 BOTTLE BY MOUTH NOW Paroxetine (Paxil) 20 Mg Tab 20 MG PO QAM Polyethylene Glycol 3350 (Bulk (Polyethylene Glycol 3350) 1 Pow Pow 17 GM PO QAM for 30 Days, #527 GM 11 Refills Senna/Docusate Sod (Senokot S) 1 Tab Tab 1 TAB PO DAILY PRN for Constipation, TAB Tramadol (Ultram) 50 Mg Tab 50 MG PO Q4H PRN for Pain, TAB TAKE 50MG EVERY 4 HOURS NEEDED FOR MODERATE PAIN 4-6 MAXIMUM 400MG IN 24 HOURS Tramadol (Ultram) 50 Mg Tab 100 MG PO Q4 PRN for Pain for 3 Days, #18 TAB (This prescription has been renewed) TAKE 100MG EVERY 4 HOURS NEEDED FOR SEVERE PAIN 7-10 MAXIMUM 400MG IN 24 HOURS [magnesium chloride] () 64 MG PO DAILY TAKE 64MG DAILY WITH BREAKFAST Discontinued Medications: Clonidine Hcl (Catapres) 0.1 Mg Tab 1.5 TAB PO QAM, TAB Clonidine Hcl (Catapres) 0.1 Mg Tab 0.2 MG PO HS, TAB Diltiazem Hcl Extended Release (Diltiazem Hcl Er) 120 Mg Cap 240 MG PO QAM Enoxaparin Sodium (Lovenox) 30 Mg/0.3 Ml Inj 30 MG SQ Q12 for 28 Days, SYR Spironolactone (Aldactone) 25 Mg Tab 50 MG PO QAM, TAB Discharge Exam Subjective Pt evaluation today including: conversation w/ patient, physical exam, chart review, lab review, review of studies Pain: none PO Intake: good Voiding: no voiding problems The patient was seen and examined this morning. Pt reports doing well today, she has no acute complaints. She denies being feel heart palpitations or flutter whenever her heart rate is elevated. She does report feeling lightheaded at times whenever she should is doing exertional activities. She denies lightheadedness when sitting at rest even with elevated heart rate. She has been ambulating about the room without difficulty. Her home health PT OT plans arebeing coordinated by case management as she doesn't start regular outpatient PT until next Sunday. She does have an appointment with Dr. Min in the office on Sunday for f/u of the knee. . Additional Comments: Constitutional: No fever, sweats or chills Eyes: No diplopia, no worsening or blurred vision ENT: normal hearing, no trouble swallowing Respiratory: No cough, sputum, dyspnea at rest or on exertion Cardiovascular: No chest pain, tightness or palpitations Abdomen: No pain, nausea, vomiting, diarrhea or constipation Musculoskeletal: No joint pain, calf pain, swelling Neurologic: No weakness, numbness/tingling, or balance problems Psychiatric: No anxiety or depression Skin: No rash or itch Objective Vital Signs Date Time Temp Pulse Resp B/P (MAP) Pulse Ox O2 Delivery O2 Flow Rate FiO2 02/19/17 06:08 94 02/19/17 05:19 75 02/19/17 05:06 133 141/87 02/19/17 04:35 134 02/19/17 04:00 Room Air 02/19/17 03:50 37.3 85 20 126/91 (103) 95 Room Air 02/19/17 02:13 93 02/19/17 00:00 Room Air 02/18/17 23:50 37.0 105 20 134/77 (96) 93 Room Air 02/18/17 21:55 75 02/18/17 21:00 96 02/18/17 20:00 Room Air 02/18/17 19:15 37.3 110 20 134/71 (92) 94 Room Air 02/18/17 16:00 Room Air 02/18/17 15:23 36.9 72 18 121/65 (83) 98 Room Air 02/18/17 12:00 Room Air 02/18/17 11:50 36.8 69 18 92/57 (69) 96 Room Air 02/18/17 08:00 Room Air Physical Exam Notes: General: awake, alert, no apparent distress, +overweight Head: Normocephalic, atraumatic ENT: PERRL, EOMI, no pharyngeal exudate, mucous membranes moist Chest: Slightly tachycardic, regular rhythm, on room air, no adventitious breath sounds Cardiac: Regular rate and rhythm, no murmur, no JVD, normal peripheral pulses, good capillary refill Abdominal: NABS x 4 quadrants, soft, nontender to palpation, no rebound, guarding or tenderness Extremities:LLE slightly more swollen compared to the right, nonpitting edema, no peripheral erythema, calfs nontender to palpation Psych: Normal mood and affect Neuro: AAO x 3, strength intact bilaterally and related 5/5, no motor deficits, speech is clear, no peripheral sensory deficits (Deana Augustine, PA-C) Hospital Course H&P per Nitish Blackmon MD. History of Present Illness This patient returns from [facility] found to be in atrial flutter RVR after undergoing total knee replacement February 13 The patient says she fell while she was here shortly after arriving in [facility] she began feeling poorly she be sleepy all the time she did not have any energy she was dyspneic with exertion. In the emergency department. Atrial flutter responded to beta marilu therapy, she traditionally takes daily diltiazem. She has no previous history of this, she was on appropriate DVT prevention of enoxaparin twice a day, has not any any unusual leg swelling or redness and has no pleuritic chest pain. She currently remains in a flutter with rate control around 100 Physical Exam Vital Signs Date Time Temp Pulse Resp B/P (MAP) Pulse Ox O2 Delivery O2 Flow Rate FiO2 02/17/17 19:09 111/78 02/17/17 19:05 92 18 93 02/17/17 19:00 111/78 02/17/17 18:35 104 22 88 02/17/17 18:32 118/71 02/17/17 18:14 112/77 02/17/17 18:13 112/77 02/17/17 18:05 82 16 94 02/17/17 18:00 91/62 02/17/17 17:59 76 17 95 02/17/17 17:54 87 15 95 02/17/17 17:39 81 22 90 02/17/17 17:34 73 02/17/17 17:24 86 19 93 02/17/17 17:14 80 97/64 98 02/17/17 17:10 97/64 02/17/17 17:09 71 29 95 02/17/17 16:58 132 105/78 02/17/17 16:56 132 20 105/78 97 02/17/17 16:54 122 02/17/17 16:54 140 16 95 02/17/17 16:49 97 Room Air 02/17/17 16:49 97 Room Air 02/17/17 16:49 37.0 93 18 105/78 97 Room Air 02/17/17 16:45 105/78 General Appearance: WD/WN, + mild distress Head: normocephalic, atraumatic Eyes: PERRL, EOMI Neck: supple, thyroid normal Respiratory/Chest: chest non-tender, lungs clear, normal breath sounds Cardiovascular: regular rate, rhythm, no murmur, + tachycardia Abdomen/GI: normal bowel sounds, non tender, soft Back: no CVA tenderness, no muscle spasm Extremities/Musculoskelatal: + pertinent finding (trace edema to the left leg no Homans sign bruits) Neurologic/Psych: alert, oriented x 3 Skin: normal color, warm/dry, no rash Hospital Course 72-year-old female with new-onset atrial flutter with RVR on admission, recent left TKA on 02/13 and she was in rehab at [facility] when she developed the atrial flutter. Cardiology was consulted and pt was titrated up on metoprolol tartrate to 100mg BID, clonidine was decreased to 0.1 mg QAM and QHS, and she was started on Eliquis 5 mg BID for anticoagulation with anticipation that she will undergo cardioversion in 3 weeks. A holter monitor evaluation has been set up for 02/28/17 x 24 hours. Diltiazem and spironolactone were stopped on admission and discontinued. The patient had home health services set up as an outpatient prior to discharge home for 1 week until her formal outpatient therapy with [facility] orthopedics starts next sunday. Follow up was arranged prior to her discharge with cardiology and PCP. New onset atrial flutter with RVR: rates are now controlled in the 60's while at rest, controlled with Lopressor 50mg BID - Diltiazem was stopped, will continue to hold - fully anticoagulated on Lovenox 100mg q12 --> transition to Eliquis 5 mg BID, continue - Cardiology on board- planned for outpatient f/u and possible cardioversion in 3 weeks. Pt has set up for a Holter monitor evaluation on 02/28/17 24 hours. - Echocardiogram 02/18/17 * 1. Normal left ventricular size with hyperdynamic systolic function. EF >70%. No regoinal wall motion abnormalities. Mild concentric left ventricular hypertrophy. * 2. There is moderate mitral annular calcification. * 3. Normal estimated right ventricular systolic pressure; RVSP 23 mmHg. * 4. Compared to prior study on 03/10/2013, LV systolic function is now hyperdynamic. Rhythm is now atrial flutter (rate controlled). HTN: - BP looks improved with decreased regimen- Clonidine to 0.1mg HS (from 0.2mg) and decrease AM dose to 0.1mg from 0.15mg - Patient continued to have bouts of tachycardia, cardiology recommended increase of metoprolol to 100 mg by mouth BID - prior to admission she was on Diltiazem 240mg as well which has been stopped - continue to hold the time of discharge Constipation: - first BM in a week was 02/17, hard and difficult to pass - resume miralax daily scheduled, good PO intake, increase activity - patient is agreeable to a Dulcolax suppository if she does not have a bowel movement today. CKD stage III - Stable s/p left TKA: - therapy ordered, was at rehab when atrial flutter started - recovering well, pain control with Ultram - Plan for home health services until next Sunday when outpatient PT is initiated- CM assisting. - will follow up with orthopedic surgery, Dr. Min as previously scheduled next Sunday Depression: -continue Paxil 20 mg daily DVT prophylaxis: Lovenox CODE STATUS: FULL CODE Disposition: From [facility], will need to determine if pt goes back to rehab or if home Total Time Spent: Greater than 30 minutes This includes examination of the patient, discharge planning, medication reconciliation, and communication with other providers. (Deana Augustine PA-C) Discharge Instructions Please refer to the electronic Patient Visit Report (Discharge Instructions) for additional information. (Deana Augustine, RCYS) Follow-Up Follow up with your Primary Care Provider within 1 week. An appointment has been requested for you. Follow up with Cardiology as already scheduled: 02/28/17 at 10:30 AM for Holter monitor placement 03/01/17 at 10:30 AM for Holter monitor removal 03/19/17 at 10:30 AM for follow up Follow up with physical therapy with home health agency for the next week until you start your normally scheduled PT/OT for your recent knee replacement. (Deana Augustine, CRYS) Additional Copies To Finesse Newell M.D. Reviewed: Pt Seen/Exam by Me (Julee Cordero MD) History Physician Furniture Cleaner Supervision Note: I interviewed and examined the patient. Discussed with HILDA Augustine and agree with findings and plan as documented in the note. Any exceptions or clarifications are listed here: Pt feeling very well today after increased dose of metoprolol. No CP or SOB, no palpitations. She has ambulated and is ready for discharge to home. Telemetry review shows atrial flutter with rates in the 60s-90. VSS NAD, AAOx3 Irreg irreg, no mgr CTAB no wcr Abd +BS soft NT ND Ext : left knee with dressing in place, no edema, 2+ DP pulses Skin no rashes 72 yo female with recent left TKA, HTN, depression/anxiety, HL, hyperparathyroidism, asthma, osteoarthritis, hx of bilateral breast cancer, WETZEL , polymyalgia rheumatica, here with new onset rapid atrial flutter in the post- operative setting. -rate controlled, now anticoagulated -needs anticoagulation for 4 WEEKS prior to DCCV; will need DCCV sooner if having worsening symptoms and if so, would require a MARCIAL just prior -Holter monitor next week, f/u with Cardiology in 3 weeks -discussed risks/benefits/side effects of anticoagulation -continue Home PT and pain meds along with Ortho f/u as scheduled for knee Documented By: Julee Cordero (Julee Cordero MD)
[2017-02-19] MEDS ORDERED: TRAM-10 PO (15:10)
[2017-02-19] MEDS ORDERED: METOPROLOL TARTRATE 50 MG TAB PO SCH (21:00)
--- NOTE | 2017-02-21 14:31 | Progress Note ---
Progress Note Date of Service Feb 21, 2017. Progress Note Patient is 72 year old F scheduled for MARCIAL and cardioversion for rapid aflutter. She is POD 10 from TKA, and is anticoagulated on Elliquis. She has had no other changes in her medical history which includes HTN, CKD, and Obesity. Labs and studies were reviewed. We will be happy to see the patient and consent her on the morning of procedure. She appears to be appropriate to proceed as planned on 02/22.
== END 2017-02-19 16:00 | disposition home health service (06) | DRG 310 ==
LOC: EDBD 16:39 → C.EDC 16:40 → C.2E 19:50 → ENRESERV 19:55
PROVIDERS: ADMIT Internal Medicine; ATTEND Family Medicine
DX: I48.92 Unspecified atrial flutter (principal); K59.00 Constipation, unspecified; I12.9 Hypertensive chronic kidney disease with stage 1 through stage 4 chronic kidney disease, or unspecified chronic kidney disease; N18.3 Chronic kidney disease, stage 3 (moderate); F32.9 Major depressive disorder, single episode, unspecified; M19.90 Unspecified osteoarthritis, unspecified site; D50.9 Iron deficiency anemia, unspecified; I95.9 Hypotension, unspecified; Z96.652 Presence of left artificial knee joint; Z85.3 Personal history of malignant neoplasm of breast; Z83.3 Family history of diabetes mellitus; Z87.891 Personal history of nicotine dependence; Z91.018 Allergy to other foods; Z88.8 Allergy status to other drugs, medicaments and biological substances; Z88.0 Allergy status to penicillin; Z88.6 Allergy status to analgesic agent; Z88.5 Allergy status to narcotic agent; Z91.048 Other nonmedicinal substance allergy status

== ENCOUNTER 2017-02-21 00:18 | Inpatient (IN) | payer OTHER ==
[~2017-02-21] VITALS: Ht 167.6 cm; Wt 99.0 kg
[2017-02-21] VITALS (7 sets, daily range): BP systolic 108–153; BP diastolic 66–101; PULSE 68–133; TEMP 36.4–36.9; O2SAT 92–96; Ht 167.6 cm; Wt 99.0 kg
[~2017-02-21 00:18] MED LIST changes: -CLON0.2T11 PO; -CTP/1 PO; +CTP1 PO; -DILT-115 PO; +ELQ25 PO; -ENOX1INJ8 SQ; +MAGN1SOL7 PO; +METO50TA16 PO; -RXC5 PO; +SENN-65 PO; +TRAM-10 PO; -ULT50X PO; -spironolactone
[2017-02-21] MEDS ORDERED: SODIUM CHLORIDE 0.9% 1000ML 1,000 ML IV STA (00:35)
[2017-02-21] MEDS ORDERED: SODIUM CHLORIDE 0.9% 500ML 500 ML IV STA (00:35)
[2017-02-21 00:44] LABS: BASO % 0.1 %; BASO ABS # 0.02 K/uL (0-0.2); COMPLETE YES; EOS % 0.7 %; HEMATOCRIT 38.4 % (37-47); IG% 2.1 %; LYMPH % 23.4 %; LYMPH ABS # 3.28 K/uL (1.2-3.4); MEAN CORPUSCULAR HEMOGLOBIN 27.4 pg (25-34); MEAN CORPUSCULAR HGB CONC 32.3 g/dl (32-36); MEAN PLATELET VOLUME 10.5 fL (7.4-10.4); MONO % 8.6 %; NEUT % 65.1 %; PLATELET COUNT 437 K/uL (130-400); RED BLOOD COUNT 4.52 M/uL (4.2-5.4); WHITE BLOOD COUNT 14.03 K/uL (4.8-10.8)
[2017-02-21 00:56] LABS: AST/SGOT 16 U/L (15-37); BLOOD UREA NITROGEN 25 mg/dl (7-18); BUN/CREATININE RATIO 18.1 (10-20); CALCIUM 9.3 mg/dl (8.5-10.1); CARBON DIOXIDE 26 mmol/L (21-32); CHLORIDE 105 mmol/L (98-107); GLUCOSE 111 mg/dl (70-99); MAGNESIUM 2.2 mg/dl (1.8-2.4); POTASSIUM 4.5 mmol/L (3.5-5.1); SODIUM 139 mmol/L (136-145)
[2017-02-21 00:59] LABS: ALKALINE PHOSPHATASE 69 U/L (45-117); ALT/SGPT 19 U/L (12-78)
[2017-02-21 01:13] LABS: ISTAT CREATININE 1.4 mg/dl (0.6-1.3); ISTAT HEMOGLOBIN 11.9 g/dl (12.0-16.0); ISTAT IONIZED CALCIUM 1.07 mmol/l (1.12-1.32)
[2017-02-21] MEDS ORDERED: CEFTRIAXONE SOD INJ 1 GM ADDVIAL IV STA (01:20)
[2017-02-21] MEDS ORDERED: SLWMEC PO (01:28)
[2017-02-21] MEDS ORDERED: DOCU100C31 PO (01:28)
[2017-02-21] MEDS ORDERED: CLON0.1T12 PO (01:28)
[2017-02-21] MEDS ORDERED: METO100T14 PO (01:28)
[2017-02-21] MEDS ORDERED: APIX1TAB3 PO (01:28)
[2017-02-21 01:44] LABS: URINE APPEARANCE CLOUDY (CLEAR); URINE COLOR DK YELLOW; URINE EPITHELIAL CELL AUTO >30 /lpf (0-5); URINE NITRITE NEG (NEG); URINE SPECIFIC GRAVITY 1.023 (1.000-1.030); UROBILINOGEN NEG (NEG); ZZUR CULT IF INDIC CLEAN CATCH YES
[2017-02-21 01:59] LABS: MANUAL MICROSCOPIC REQUIRED? NO; REVIEW REQ? YES; URINE BILIRUBIN NEG (NEG)
--- NOTE | 2017-02-21 04:01 | EMERGENCY ROOM VISIT NOTE ---
History Report prepared by Bonny: Guy Escoto Under the Supervision of: Dr. Raffy Ruggiero D.O. First contact with patient: 00:23 Chief Complaint: SHORTNESS OF BREATH Stated Complaint: DYSPNEA/MALAISE History of Present Illness The patient is a 72 year old female who presents to the Emergency Room with complaints of shortness of breath and dizziness that began this morning at 1300 , 12 hours prior to arrival. The patient states that she was just discharged from an inpatient stay in the hospital for new Atrial Fibrillation yesterday. She was discharged on several new medications, and notes that she took them off schedule today after sleeping in this morning. She did not take her evening medications until 2119. She is currently taking Clonidine, Metoprolol, Paroxetine, Tramadol, Eliquis. The patient is complaining of feeling light headed, nauseated, short of breath, dizzy, and diaphoretic when she stands up. She claims that she is not affected by moving from a laying position to seated, and only experienced her symptoms when she stands. The patient denies currently experiencing headache, change in vision, fevers, chest pain, nausea, vomiting, diarrhea, pain with urination, and melena. Source of History: patient Onset: 12 hours [employer]AREER [employer] Position: head, chest Quality: other (Dizzy, short of breath) Modifying Factors (Worsening): other (Standing) Associated Symptoms: No chest pain Review of Systems See HPI for pertinent positives & negatives. A total of 10 systems reviewed and were otherwise negative. Past Medical & Surgical Medical Problems: (1) Atrial flutter with rapid ventricular response (2) Breast CA (3) Carpal Tunnel Syndrome (4) Cystitis Nos (5) Hx Of Breast Malignancy (6) Hyperlipidemia Nec/Nos (7) Hypertension Nos (8) Iron Defic Anemia Nos (9) Left knee DJD (10) Osteoarthros Nos-Unspec (11) Sepsis Family History Diabetes mellitus Social History Smoking Status: Former Smoker Alcohol Use: occasionally Drug Use: none Housing Status: lives alone Current/Historical Medications Scheduled Apixaban (Eliquis), 5 MG PO BID Cholecalciferol (Vitamin D3), 2,000 INTUNIT PO QAM Clonidine Hcl (Catapres), 0.15 MG PO QAM Docusate Sodium (Docusate Sodium), 100 MG PO BID Magnesium Chloride (Slow-Mag Tab), 64 MG PO QDB Metoprolol Tartrate (Lopressor) (Lopressor), 100 MG PO BID Paroxetine (Paxil), 20 MG PO QAM Polyethylene Glycol 3350 (Bulk (Polyethylene Glycol 3350), 17 GM PO QAM Scheduled PRN Magnesium Citrate (Magnesium Citrate), Unknown Dose PO DAILY PRN for Constipation Senna/Docusate Sod (Senokot S), 1 TAB PO DAILY PRN for Constipation Tramadol (Ultram), 100 MG PO Q4H PRN for Pain Allergies Coded Allergies: Pineapple (Verified Allergy, Severe, RAW PINEAPPLE-BURNING FACE, TIGHTNESS IN THROAT, 02/21/17) Statins (Verified Adverse Reaction, Intermediate, MUSCLE ACHING, 02/21/17) HMG-CoA-R Inhibitors (Verified Adverse Reaction, Mild, STATINS- MUSCLE ACHES, 02/21/17) Acetaminophen (Verified Adverse Reaction, Unknown, decreased urine output , 02/21/17) Amlodipine (Verified Adverse Reaction, Unknown, BRADYCARDIA, 02/21/17) Amoxicillin (Verified Adverse Reaction, Unknown, nausea, 02/21/17) Ascorbate (Verified Adverse Reaction, Unknown, heart pounds, tachy and headache, 02/21/17) Aspirin (Verified Adverse Reaction, Unknown, upset stomach, 02/21/17) Beta-Carotene (Verified Adverse Reaction, Unknown, heart pounds, tachy and headache, 02/21/17) Cholecalciferol (Verified Adverse Reaction, Unknown, heart pounds, tachy and headache, 02/21/17) Clavulanic Acid (Verified Adverse Reaction, Unknown, nausea, 02/21/17) Cupric Oxide (Verified Adverse Reaction, Unknown, heart pounds, tachy and headache, 02/21/17) Diclofenac (Verified Adverse Reaction, Unknown, wobbly, 02/21/17) Docosahexaenoic Acid (DHA) (Verified Adverse Reaction, Unknown, heart pounds, tachy and headache, 02/21/17) Eicosapentaenoic Acid (EPA) (Verified Adverse Reaction, Unknown, heart pounds, tachy and headache, 02/21/17) Ezetimibe (Verified Adverse Reaction, Unknown, chills, myalgia, 02/21/17) Ferrous Bisglycinate (Verified Adverse Reaction, Unknown, heart pounds, tachy and headache, 02/21/17) Folic Acid (Verified Adverse Reaction, Unknown, heart pounds, tachy and headache, 02/21/17) Gemfibrozil (Verified Adverse Reaction, Unknown, EXTREME FATIGUE, 02/21/17) Hydrocodone (Verified Adverse Reaction, Unknown, decreased urine output, ) Iron (Verified Adverse Reaction, Unknown, heart pounds, tachy and headache , 02/21/17) Magnesium Oxide (Verified Adverse Reaction, Unknown, heart pounds, tachy and headache, 02/21/17) Olmesartan (Verified Adverse Reaction, Unknown, cough, fatigue, 02/21/17) POLLEN (Verified Adverse Reaction, Unknown, nasal congestion, 02/21/17) Pyridoxine (Verified Adverse Reaction, Unknown, heart pounds, tachy and headache, 02/21/17) Riboflavin (Verified Adverse Reaction, Unknown, heart pounds, tachy and headache, 02/21/17) Sodium Benzoate (Verified Adverse Reaction, Unknown, heart pounds, tachy and headache, 02/21/17) Telmisartan (Verified Adverse Reaction, Unknown, flu-like symptoms, 02/21/17 ) Thiamine (Verified Adverse Reaction, Unknown, heart pounds, tachy and headache, 02/21/17) Varenicline (Verified Adverse Reaction, Unknown, headache, nausea and vivid dreams, 02/21/17) Vitamin B12 (Verified Adverse Reaction, Unknown, heart pounds, tachy and headache, 02/21/17) Vitamin E (Verified Adverse Reaction, Unknown, heart pounds, tachy and headache, 02/21/17) Zinc Oxide (Verified Adverse Reaction, Unknown, heart pounds, tachy and headache, 02/21/17) Physical Exam Vital Signs Date Time Temp Pulse Resp B/P (MAP) Pulse Ox O2 Delivery O2 Flow Rate FiO2 02/21/17 03:11 94 118/51 95 115/73 109 112/72 02/21/17 01:31 138/80 02/21/17 01:19 115/85 02/21/17 01:18 80 27 94 02/21/17 00:48 94 20 95 02/21/17 00:34 97/69 02/21/17 00:32 /59 02/21/17 00:25 101 02/21/17 00:24 73/64 02/21/17 00:22 108/81 02/21/17 00:18 36.9 121 20 108/81 95 Room Air 02/21/17 00:18 95 Room Air Physical Exam GENERAL: alert, Sitting up in bed, well appearing, well nourished, no distress, non-toxic EYE EXAM: normal conjunctiva, PERRL and EOM's intact OROPHARYNX: no exudate, no erythema, lips, buccal mucosa, and tongue normal and mucous membranes are moist NECK: supple, no nuchal rigidity, no adenopathy, non-tender LUNGS: Clear to auscultation. Normal chest wall mechanics HEART: Tachycardiac rate and irregularly irregular rhythm. no murmurs, S1 normal and S2 normal ABDOMEN: abdomen soft, non-tender, normo-active bowel sounds, no masses, no rebound or guarding. BACK: Back is symmetrical on inspection and there is no deformity, no midline tenderness, no CVA tenderness. SKIN: no rashes and no bruising UPPER EXTREMITIES: upper extremities are grossly normal. LOWER EXTREMITIES: The left calf is larger than the right, dressing is in place over the left knee with bruising from the knee down through the calf. NEURO EXAM: Normal sensorium, cranial nerves II-XII grossly intact, normal speech, no gross weakness of arms, no gross weakness of the right leg, left leg limited due to recent surgery. Medical Decision & Procedures ER Provider Diagnostic Interpretation: Radiology results as stated below per my review. CHEST X-RAY PORTABLE UPRIGHT 1 VIEW: X-ray reveals enlarged cardiac silhouette, streaking consolidation in the right lower lobe. No focal infiltrate. Laboratory Results 02/21/17 00:12 Red Blood Count 4.52, Mean Corpuscular Volume 85.0, Mean Corpuscular Hemoglobin 27.4, Mean Corpuscular Hemoglobin Concent 32.3, Mean Platelet Volume 10.5, Neutrophils (%) (Auto) 65.1, Lymphocytes (%) (Auto) 23.4, Monocytes (%) (Auto) 8.6, Eosinophils (%) (Auto) 0.7, Basophils (%) (Auto) 0.1, Neutrophils # (Auto) 9.12, Lymphocytes # (Auto) 3.28, Monocytes # (Auto) 1.21, Eosinophils # (Auto) 0.10, Basophils # (Auto) 0.02 02/21/17 00:12 Test 02/21/17 00:12 02/21/17 00:55 02/21/17 01:00 02/21/17 01:25 White Blood Count 14.03 K/uL (4.8-10.8) Red Blood Count 4.52 M/uL (4.2-5.4) Hemoglobin 12.4 g/dL (12.0-16.0) Hematocrit 38.4 % (37-47) Mean Corpuscular Volume 85.0 fL (80-100) Mean Corpuscular Hemoglobin 27.4 pg (25-34) Mean Corpuscular Hemoglobin Concent 32.3 g/dl (32-36) Platelet Count 437 K/uL (130-400) Mean Platelet Volume 10.5 fL (7.4-10.4) Neutrophils (%) (Auto) 65.1 % Lymphocytes (%) (Auto) 23.4 % Monocytes (%) (Auto) 8.6 % Eosinophils (%) (Auto) 0.7 % Basophils (%) (Auto) 0.1 % Neutrophils # (Auto) 9.12 K/uL (1.4-6.5) Lymphocytes # (Auto) 3.28 K/uL (1.2-3.4) Monocytes # (Auto) 1.21 K/uL (0.11-0.59) Eosinophils # (Auto) 0.10 K/uL (0-0.5) Basophils # (Auto) 0.02 K/uL (0-0.2) RDW Standard Deviation 48.6 fL (36.4-46.3) RDW Coefficient of Variation 16.1 % (11.5-14.5) Immature Granulocyte % (Auto) 2.1 % Immature Granulocyte # (Auto) 0.30 K/uL (0.00-0.02) Nucleated RBC Absolute Count (auto) 0.05 K/uL (0-0) Nucleated Red Blood Cells % 0.4 % Est Creatinine Clear Calc Drug Dose 43.9 ml/min Estimated GFR () 44.0 Estimated GFR (Non- 38.0 BUN/Creatinine Ratio 18.1 (10-20) Calcium Level 9.3 mg/dl (8.5-10.1) Magnesium Level 2.2 mg/dl (1.8-2.4) Total Bilirubin 0.5 mg/dl (0.2-1) Direct Bilirubin mg/dl (0-0.2) Aspartate Amino Transf (AST/SGOT) 16 U/L (15-37) Alanine Aminotransferase (ALT/SGPT) 19 U/L (12-78) Alkaline Phosphatase 69 U/L (45-117) Total Creatine Kinase 58 U/L (26-192) Creatine Kinase MB < 0.5 ng/ml (0.5-3.6) Creatine Kinase MB Ratio (0-3.0) Troponin I < 0.015 ng/ml (0-0.045) Total Protein 7.3 gm/dl (6.4-8.2) Albumin 3.0 gm/dl (3.4-5.0) Chemistry Specimen Hemolysis Bedside Lactic Acid Venous 1.66 mmol/L (0.90-1.70) Bedside Hemoglobin 11.9 g/dl (12.0-16.0) Bedside Hematocrit 35 % (37-47) Bedside Sodium 138 mEq/L (135-144) Bedside Potassium 4.4 mEq/L (3.3-5.0) Bedside Chloride 104 mEq/L (101-112) Bedside Total CO2 22 mEq/l (24-31) Anion Gap 17.0 mmol/L (16-25) Bedside Blood Urea Nitrogen 27 mg/dl (7-18) Bedside Creatinine 1.4 mg/dl (0.6-1.3) Bedside Glucose (other) 122 mg/dl (70-99) Bedside Ionized Calcium (Naima) 1.07 mmol/l (1.12-1.32) Urine Color DK YELLOW Urine Appearance CLOUDY (CLEAR) Urine pH 5.0 (4.5-7.5) Urine Specific Sheldon 1.023 (1.000-1.030) Urine Protein 1+ (NEG) Urine Glucose (UA) NEG (NEG) Urine Ketones TRACE (NEG) Urine Occult Blood 1+ (NEG) Urine Nitrite NEG (NEG) Urine Bilirubin NEG (NEG) Urine Urobilinogen NEG (NEG) Urine Leukocyte Esterase MODERATE (NEG) Urine WBC (Auto) >30 /hpf (0-5) Urine RBC (Auto) 0-4 /hpf (0-4) Urine Hyaline Casts (Auto) >30 /lpf (0-5) Urine Epithelial Cells (Auto) >30 /lpf (0-5) Urine Bacteria (Auto) NEG (NEG) Urine Pathogenic Casts /lpf (0) Laboratory results per my review. Medications Administered Medications (Trade) Dose Ordered Sig/David Route Start Time Stop Time Status Last Admin Dose Admin Sodium Chloride 1,000 ml @ 999 mls/hr Q1H1M STAT IV 02/21/17 00:35 02/21/17 01:35 DC 02/21/17 00:57 999 MLS/HR Sodium Chloride 500 ml @ 999 mls/hr Q31M STAT IV 02/21/17 00:35 02/21/17 01:05 DC 02/21/17 00:58 999 MLS/HR Ceftriaxone Sodium (Rocephin Inj) 1 gm NOW STAT IV 02/21/17 01:20 02/21/17 01:21 DC 02/21/17 01:50 1 GM ECG Indication: SOB/dyspnea Rate (beats per minute): 105 Rhythm: atrial flutter, other Findings: other (Variable block, LAD, Poor baseline) Comparison ECG Date: 02/19/2017 Change: no significant change ED Course ED COURSE: Vital signs were reviewed and showed Hypotensive vitals. The patients medical record was reviewed The above diagnostic studies were performed and reviewed. ED treatments and interventions as stated above. 0026: The patient was evaluated in room A12. A complete history and physical examination was performed. 0035: Ordered Sodium Chloride 500 mL @ 999 mL/hr IV, Sodium Chloride 1000 mL @ 999 mL/hr IV. 0120: Ordered Rocephin 1 gm IV. 0200: I discussed the case with Dr. Ramin Murcia [facility] Hospitalist. He will evaluate the patient for further treatment. []: Upon reevaluation, the patient is [].I discussed my findings with the [ patient] and [] understands and agrees with the treatment plan. Based on the patients age, coexisting illnesses, exam and lab findings the decision to treat as an [inpatient][outpatient] was made. The patient remained stable while under my care. [The patient appeared well at the time of discharge.] [The patient will be evaluated for further management.] Medical Decision Differential diagnoses includes but is not limited to pneumonia, bronchitis, COPD/Asthma exacerbation, pneumothorax, pulmonary embolism, congestive heart failure, acute coronary syndrome Patient is a 72-year-old female who presents the ER for dizziness and lightheadedness along with shortness of breath with movement. She notes she took her medications which included metoprolol at 1 PM and then took them again at 8 PM tonight. CBC shows a mild leukocytosis. BMP along with LFTs, bilirubin and troponin were unremarkable. UA was contaminated with multiple epithelial cells. Chest x-ray was unremarkable. Patient was given 2 L normal saline and systolic pressures improved from the 70s to 80s and eventually to 120s. Patient is resting comfortably in the ER. EKG confirms atrial flutter with variable block. She is on Eliquis. I do not feel this is consistent with PE. Patient will be admitted to internal medicine for lightheaded and dizziness likely secondary to metoprolol versus dehydration. Consults Time Called: 0150 Consulting Physician: Dr. Ramin LOREDO Hospitalist Returned Call: 0200 I discussed the case with Dr. Ramin LOREDO Hospitalist. He will evaluate the patient for further treatment. Impression Primary Impression: Hypotension Additional Impressions: Atrial flutter with rapid ventricular response Weakness Scribe Attestation The scribe's documentation has been prepared under my direction and personally reviewed by me in its entirety. I confirm that the note above accurately reflects all work, treatment, procedures, and medical decision making performed by me. Departure Information Dispostion Being Evaluated By Hospitalist Referrals Finesse Newell M.D. (PCP) Patient Instructions My [facility] Problem Qualifiers Primary Impression: Hypotension Hypotension type: unspecified hypotension type Qualified Codes: I95.9 - Hypotension, unspecified
[2017-02-21] MEDS ORDERED: ONDANSETRON INJ 2 MG/ML 2 ML VIAL IV PRN (04:15)
[2017-02-21] MEDS ORDERED: POLYETHYLENE (MIRALAX) 17 GM PACK PO PRN (04:15)
--- NOTE | 2017-02-21 04:26 | History and Physical ---
History & Physical Date & Time of Service: Feb 21, 2017 at 04:24 Chief Complaint: Dyspnea/Malaise Primary Care Physician: Finesse Newell M.D. History of Present Illness Source: patient 72-year-old female with past medical history of breast cancer, hypertension, osteoarthritis status post left TKA, new onset atrial flutter diagnosed during last admission presented to the ER with complaints of dizziness and shortness of breath that started yesterday morning. She she had undergone a left TKA about a week ago and was discharged to [facility] when she developed atrial flutter. She was admitted at [facility] from 02/17 to 02/19. The patient stated that she developed shortness of breath and dizziness yesterday. She states that the dizziness is worse on standing and walking around and she has no dizziness on lying down. She also complains of nausea but has no episodes of vomiting. Denies any chest pain, palpitations but complains of shortness of breath which she states had started last week when she was diagnosed with atrial flutter. Denies any abdominal pain, diarrhea, urinary complaints, fevers or chills. Denies any motor weakness, numbness or tingling, blurriness of vision or slurring of speech. Past Medical/Surgical History Medical Problems: (1) Breast CA Status: Resolved (2) Hx Of Breast Malignancy Status: Resolved (3) Hypertension Nos Status: Chronic (4) Iron Defic Anemia Nos Status: Chronic (5) Osteoarthros Nos-Unspec Status: Chronic (6) Sepsis Status: Resolved Family History Diabetes mellitus Social History Smoking Status: Former Smoker Drug Use: none Housing status: lives with family Immunizations History of Influenza Vaccine: Yes History of Tetanus Vaccine?: UTD History of Pneumococcal: Yes History of Hepatitis B Vaccine: Yes Multi-Drug Resistant Organisms History of MDRO: No Allergies Coded Allergies: Pineapple (Verified Allergy, Severe, RAW PINEAPPLE-BURNING FACE, TIGHTNESS IN THROAT, 02/21/17) Statins (Verified Adverse Reaction, Intermediate, MUSCLE ACHING, 02/21/17) HMG-CoA-R Inhibitors (Verified Adverse Reaction, Mild, STATINS- MUSCLE ACHES, 02/21/17) Amlodipine (Verified Adverse Reaction, Unknown, BRADYCARDIA, 02/21/17) Amoxicillin (Verified Adverse Reaction, Unknown, nausea, 02/21/17) Ascorbate (Verified Adverse Reaction, Unknown, heart pounds, tachy and headache, 02/21/17) Aspirin (Verified Adverse Reaction, Unknown, upset stomach, 02/21/17) Beta-Carotene (Verified Adverse Reaction, Unknown, heart pounds, tachy and headache, 02/21/17) Cholecalciferol (Verified Adverse Reaction, Unknown, heart pounds, tachy and headache, 02/21/17) Clavulanic Acid (Verified Adverse Reaction, Unknown, nausea, 02/21/17) Cupric Oxide (Verified Adverse Reaction, Unknown, heart pounds, tachy and headache, 02/21/17) Diclofenac (Verified Adverse Reaction, Unknown, wobbly, 02/21/17) Docosahexaenoic Acid (DHA) (Verified Adverse Reaction, Unknown, heart pounds, tachy and headache, 02/21/17) Eicosapentaenoic Acid (EPA) (Verified Adverse Reaction, Unknown, heart pounds, tachy and headache, 02/21/17) Ezetimibe (Verified Adverse Reaction, Unknown, chills, myalgia, 02/21/17) Ferrous Bisglycinate (Verified Adverse Reaction, Unknown, heart pounds, tachy and headache, 02/21/17) Folic Acid (Verified Adverse Reaction, Unknown, heart pounds, tachy and headache, 02/21/17) Gemfibrozil (Verified Adverse Reaction, Unknown, EXTREME FATIGUE, 02/21/17) Hydrocodone (Verified Adverse Reaction, Unknown, decreased urine output, ) Iron (Verified Adverse Reaction, Unknown, heart pounds, tachy and headache , 02/21/17) Magnesium Oxide (Verified Adverse Reaction, Unknown, heart pounds, tachy and headache, 02/21/17) Olmesartan (Verified Adverse Reaction, Unknown, cough, fatigue, 02/21/17) POLLEN (Verified Adverse Reaction, Unknown, nasal congestion, 02/21/17) Pyridoxine (Verified Adverse Reaction, Unknown, heart pounds, tachy and headache, 02/21/17) Riboflavin (Verified Adverse Reaction, Unknown, heart pounds, tachy and headache, 02/21/17) Sodium Benzoate (Verified Adverse Reaction, Unknown, heart pounds, tachy and headache, 02/21/17) Telmisartan (Verified Adverse Reaction, Unknown, flu-like symptoms, 02/21/17 ) Thiamine (Verified Adverse Reaction, Unknown, heart pounds, tachy and headache, 02/21/17) Varenicline (Verified Adverse Reaction, Unknown, headache, nausea and vivid dreams, 02/21/17) Vitamin B12 (Verified Adverse Reaction, Unknown, heart pounds, tachy and headache, 02/21/17) Vitamin E (Verified Adverse Reaction, Unknown, heart pounds, tachy and headache, 02/21/17) Zinc Oxide (Verified Adverse Reaction, Unknown, heart pounds, tachy and headache, 02/21/17) Home Medications Scheduled Apixaban (Eliquis), 5 MG PO BID Cholecalciferol (Vitamin D3), 2,000 INTUNIT PO QAM Clonidine Hcl (Catapres), 0.15 MG PO QAM Docusate Sodium (Docusate Sodium), 100 MG PO BID Magnesium Chloride (Slow-Mag Tab), 64 MG PO QDB Metoprolol Tartrate (Lopressor) (Lopressor), 100 MG PO BID Paroxetine (Paxil), 20 MG PO QAM Polyethylene Glycol 3350 (Bulk (Polyethylene Glycol 3350), 17 GM PO QAM Scheduled PRN Magnesium Citrate (Magnesium Citrate), Unknown Dose PO DAILY PRN for Constipation Senna/Docusate Sod (Senokot S), 1 TAB PO DAILY PRN for Constipation Tramadol (Ultram), 100 MG PO Q4H PRN for Pain Review of Systems Constitutional: No fever Eyes: No worsening of vision ENT: No hearing loss Respiratory: + shortness of breath, + dyspnea on exertion, No cough Cardiovascular: No chest pain, No palpitations Abdomen: + nausea, No pain, No vomiting Musculoskeletal: No joint pain Genitourinary - Female: No dysuria, No urinary frequency Neurologic: + problem reported (dizziness/lightheadedness), No memory loss, No paralysis Psychiatric: No depression symptoms Endocrine: No fatigue Hematologic / Lymphatic: No abnormal bleeding/bruising Integumentary: No rash Physical Exam Vital Signs Date Time Temp Pulse Resp B/P (MAP) Pulse Ox O2 Delivery O2 Flow Rate FiO2 02/21/17 04:09 74 02/21/17 03:35 115 24 86 Room Air 02/21/17 03:11 94 118/51 95 115/73 109 112/72 02/21/17 01:31 138/80 02/21/17 01:19 115/85 02/21/17 01:18 80 27 94 02/21/17 00:48 94 20 95 02/21/17 00:34 97/69 02/21/17 00:32 /59 02/21/17 00:25 101 02/21/17 00:24 73/64 02/21/17 00:22 108/81 02/21/17 00:18 36.9 121 20 108/81 95 Room Air 02/21/17 00:18 95 Room Air General Appearance: WD/WN, no apparent distress Head: normocephalic Eyes: normal inspection ENT: normal ENT inspection, hearing grossly normal Neck: supple Respiratory/Chest: chest non-tender, lungs clear, normal breath sounds, no respiratory distress Cardiovascular: + irregularly irregular Abdomen/GI: normal bowel sounds, non tender, soft Extremities/Musculoskelatal: no pedal edema, + pertinent finding (LLE s/p TKA, bruising) Neurologic/Psych: alert, normal mood/affect, oriented x 3 Skin: normal color Diagnostics Laboratory Results Results Past 24 Hours Test 02/21/17 00:12 02/21/17 00:55 02/21/17 01:00 02/21/17 01:25 Range/Units White Blood Count 14.03 4.8-10.8 K/uL Red Blood Count 4.52 4.2-5.4 M/uL Hemoglobin 12.4 12.0-16.0 g/dL Hematocrit 38.4 37-47 % Mean Corpuscular Volume 85.0 80-100 fL Mean Corpuscular Hemoglobin 27.4 25-34 pg Mean Corpuscular Hemoglobin Concent 32.3 32-36 g/dl Platelet Count 437 130-400 K/uL Mean Platelet Volume 10.5 7.4-10.4 fL Neutrophils (%) (Auto) 65.1 % Lymphocytes (%) (Auto) 23.4 % Monocytes (%) (Auto) 8.6 % Eosinophils (%) (Auto) 0.7 % Basophils (%) (Auto) 0.1 % Neutrophils # (Auto) 9.12 1.4-6.5 K/uL Lymphocytes # (Auto) 3.28 1.2-3.4 K/uL Monocytes # (Auto) 1.21 0.11-0.59 K/uL Eosinophils # (Auto) 0.10 0-0.5 K/uL Basophils # (Auto) 0.02 0-0.2 K/uL RDW Standard Deviation 48.6 36.4-46.3 fL RDW Coefficient of Variation 16.1 11.5-14.5 % Immature Granulocyte % (Auto) 2.1 % Immature Granulocyte # (Auto) 0.30 0.00-0.02 K/uL Nucleated RBC Absolute Count (auto) 0.05 0-0 K/uL Nucleated Red Blood Cells % 0.4 % Sodium Level 139 136-145 mmol/L Potassium Level 4.5 3.5-5.1 mmol/L Chloride Level 105 98-107 mmol/L Carbon Dioxide Level 26 21-32 mmol/L Anion Gap 8.0 17.0 16-25 mmol/L Blood Urea Nitrogen 25 7-18 mg/dl Creatinine 1.40 0.60-1.20 mg/dl Est Creatinine Clear Calc Drug Dose 43.9 ml/min Estimated GFR () 44.0 Estimated GFR (Non- 38.0 BUN/Creatinine Ratio 18.1 10-20 Random Glucose 111 70-99 mg/dl Calcium Level 9.3 8.5-10.1 mg/dl Magnesium Level 2.2 1.8-2.4 mg/dl Total Bilirubin 0.5 0.2-1 mg/dl Direct Bilirubin 0-0.2 mg/dl Aspartate Amino Transf (AST/SGOT) 16 15-37 U/L Alanine Aminotransferase (ALT/SGPT) 19 12-78 U/L Alkaline Phosphatase 69 45-117 U/L Total Creatine Kinase 58 26-192 U/L Creatine Kinase MB < 0.5 0.5-3.6 ng/ml Creatine Kinase MB Ratio 0-3.0 Troponin I < 0.015 0-0.045 ng/ml Total Protein 7.3 6.4-8.2 gm/dl Albumin 3.0 3.4-5.0 gm/dl Chemistry Specimen Hemolysis Bedside Lactic Acid Venous 1.66 0.90-1.70 mmol/L Bedside Hemoglobin 11.9 12.0-16.0 g/dl Bedside Hematocrit 35 37-47 % Bedside Sodium 138 135-144 mEq/L Bedside Potassium 4.4 3.3-5.0 mEq/L Bedside Chloride 104 101-112 mEq/L Bedside Total CO2 22 24-31 mEq/l Bedside Blood Urea Nitrogen 27 7-18 mg/dl Bedside Creatinine 1.4 0.6-1.3 mg/dl Bedside Glucose (other) 122 70-99 mg/dl Bedside Ionized Calcium (Naima) 1.07 1.12-1.32 mmol/l Urine Color DK YELLOW Urine Appearance CLOUDY CLEAR Urine pH 5.0 4.5-7.5 Urine Specific [place] 1.023 1.000-1.030 Urine Protein 1+ NEG Urine Glucose (UA) NEG NEG Urine Ketones TRACE NEG Urine Occult Blood 1+ NEG Urine Nitrite NEG NEG Urine Bilirubin NEG NEG Urine Urobilinogen NEG NEG Urine Leukocyte Esterase MODERATE NEG Urine WBC (Auto) >30 0-5 /hpf Urine RBC (Auto) 0-4 0-4 /hpf Urine Hyaline Casts (Auto) >30 0-5 /lpf Urine Epithelial Cells (Auto) >30 0-5 /lpf Urine Bacteria (Auto) NEG NEG Urine Pathogenic Casts 0 /lpf Microbiology Results 02/21/17 Blood Culture, Received Pending 02/21/17 Blood Culture, Received Pending 02/21/17 Urine Culture, Received Pending Impression Assessment and Plan 72-year-old female with past medical history of breast cancer, hypertension, osteoarthritis status post left TKA, new onset atrial flutter diagnosed during last admission presented to the ER with complaints of dizziness and shortness of breath that started yesterday morning. Recent left TKA on 02/03, developed atrial flutter while in [facility] and recently discharged from [facility] on 02/19/2017. Dizziness/lightheadedness: - Likely secondary to excessive beta blockade /volume depletion - Decrease metoprolol to 50 mg for now pending cardiology consultation - Orthostatic vitals every shift - Fall precautions Atrial flutter with RVR: - Currently on metoprolol 100 mg twice a day, will decrease metoprolol to 50 mg for now - Anti-coagulation with Eliquis - Was to follow up with cardiology as an outpatient with possible cardioversion. Scheduled for Holter monitor next week Echocardiogram 02/18/17 * 1. Normal left ventricular size with hyperdynamic systolic function. EF >70%. No regoinal wall motion abnormalities. Mild concentric left ventricular hypertrophy. * 2. There is moderate mitral annular calcification. * 3. Normal estimated right ventricular systolic pressure; RVSP 23 mmHg. * 4. Compared to prior study on 03/10/2013, LV systolic function is now hyperdynamic. Rhythm is now atrial flutter (rate controlled). * UTI: - UA positive for moderate leuk esterase and >30 WBC - Urine culture pending - Continue Rocephin Hypertension: - clonidine was decreased to 0.1 mg QAM and QHS during last admission Acute kidney injury with a history of CKD stage 3 -Creatinine of 1.4 ,likely secondary to volume depletion -monitor creatinine s/p left TKA: - Pain control with tramadol - PT/OT - Follow up with orthopedic surgery as scheduled as an outpatient Depression: -continue Paxil 20 mg daily DVT prophylaxis: Eliquis CODE STATUS: FULL CODE Disposition: Admitted to telemetry Resident Physician Supervision Note: I was present with Dr. Brown during the history and exam. I discussed the case with the resident and agree with the findings and plan as documented in the note. Any exceptions or clarifications are listed here: 72 y/o F recent A flutter placed on B blockers and D/Cd one day prior - returns with dizziness and ortho hypotension. May have taken additional meds unintentionally. This resolved however the pt was walked around the ER exhibited labored breathing and an 02 sat of 87% direct after ambulating. OE AAO x 3 S1,2 R CTAB NT, ND, BS+ Pt responded to fluids - may need adjustment in Bblocker dose Reg her SOB - she has a considerable smoking history and is overweight - suspect this may be chronic - no evidence of PNM - would refer to pulm prior to DC Discussed above with pt Documented By: Remy Faustin Level of Care Telemetry Resuscitation Status FULL RESUSCITATION VTE Prophylaxis VTE Risk Assessment Done? Y/N: Yes Risk Level: Moderate Given or contraindicated: Other Anticoagulation (eliquis) Resident Tracking Resident Involvement: Resident Care Provided Care Provided: Adult Hospital Medicine
[2017-02-21] MEDS ORDERED: SODIUM CHLORIDE 0.9% 1000ML 1,000 ML IV SCH (05:00)
[2017-02-21] MEDS ORDERED: DOCUSATE SODIUM/SENNA 50/8.6MG TAB PO PRN (05:00)
[2017-02-21] MEDS: TRAMADOL HCL 50 MG TAB PO PRN ×4 (05:08→20:05)
[2017-02-21 06:28] LABS: BASO % 0.2 %; BASO ABS # 0.02 K/uL (0-0.2); COMPLETE YES; EOS % 0.8 %; HEMATOCRIT 34.6 % (37-47); IG% 2.4 %; LYMPH % 28.1 %; LYMPH ABS # 3.32 K/uL (1.2-3.4); MEAN CELL VOLUME 85.6 fL (80-100); MEAN CORPUSCULAR HEMOGLOBIN 26.7 pg (25-34); MEAN CORPUSCULAR HGB CONC 31.2 g/dl (32-36); MEAN PLATELET VOLUME 9.9 fL (7.4-10.4); MONO % 11.4 %; NEUT % 57.1 %; PLATELET COUNT 303 K/uL (130-400); RED BLOOD COUNT 4.04 M/uL (4.2-5.4)
[2017-02-21 06:56] LABS: CALCIUM 8.6 mg/dl (8.5-10.1); CREATININE 1.1 mg/dl (0.60-1.20); POTASSIUM 4.3 mmol/L (3.5-5.1)
--- NOTE | 2017-02-21 07:08 | DIAGNOSTIC IMAGING REPORT ---
CHEST ONE VIEW PORTABLE CLINICAL HISTORY: fever cough COMPARISON STUDY: 03/13/2013 FINDINGS: Moderate stable cardia megaly. Unchanging calcified granuloma left base. Lungs currently are clear. No focal infiltrate. IMPRESSION: Moderate stable cardiomegaly. No acute process. Electronically signed by: Jas Segovia M.D. 02/21/2017 7:07 AM Dictated Date/Time: 02/21/2017 7:07 AM
[2017-02-21] MEDS: POLYETHYLENE (MIRALAX) 17 GM PACK PO SCH (07:43)
[2017-02-21] MEDS: CHOLECALCIFEROL 1000 INTER.UNIT TAB PO SCH (07:43)
[2017-02-21] MEDS: METOPROLOL TARTRATE 50 MG TAB PO SCH ×2 (07:43→20:40)
[2017-02-21] MEDS: MAGNESIUM CHLORIDE 64MG DELAYED REL TAB PO SCH (07:43)
[2017-02-21] MEDS: APIXABAN 2.5 MG TAB PO SCH ×2 (07:43→20:40)
[2017-02-21] MEDS: DOCUSATE SODIUM 100 MG CAP PO SCH ×2 (07:44→20:40)
[2017-02-21] MEDS: PAROXETINE 20 MG TAB PO SCH (07:44)
[2017-02-21] MEDS: CLONIDINE HCL 0.1 MG TAB PO SCH (07:44)
[2017-02-21] MEDS ORDERED: METOPROLOL TARTRATE 100 MG TAB PO SCH (09:00)
[2017-02-21] MEDS ORDERED: CLONIDINE HCL 0.1 MG TAB PO SCH (09:00)
--- NOTE | 2017-02-21 11:38 | Cardiology Consultation ---
Cardiology Consultation Date of Consultation: Feb 21, 2017. Pt evaluation today including: conversation w/ patient, conversation w/ family , chart review, review of inpatient medication list, conversation w/ attending History of Present Illness Ms. Durham is a pleasant 72-year old female with a background history of hypertension, breast cancer and osteoarthritis who was recently discharged from [facility] on 02/19/2017 after achieving rate control of her new onset atrial flutter with 100mg of metoprolol PO BID. She, however returned last night with persistent, symptomatic atrial flutter. She previously underwent a total knee replacement on 02/13/2017, was discharged home post-surgery, and checked into [facility] on 02/15/2017 as she was feeling generally unwell, with dizziness, nausea and shortness of breath. She was unable to carry out her physical therapy due to these symptoms. On admission , they discontinued her dilitiazem and started her on metoprolol 50mg BID. Her heart rate was better controlled on this medication and her symptoms lessened. She, however, returned to [facility] as her symptoms returned, and the decision was made to increase her metoprolol to 100mg PO BID, continue her anticoagulation, and consider elective cardioversion in 3-4 weeks time if the rate was not well controlled.. She has returned once again, with the same symptoms of nausea, sweating, shortness of breath and general malaise. She states that this episode began in the middle of the night and woke her up from her sleep. She is comfortable at rest, however when she exerts herself, she experiences these symptoms. She is able to carry out her ADL's without symptoms but would experience these symptoms upon exertion, although she does not see a pattern with the amount of exertion. She denies palpitations, chest pain, or syncope, although reports feelings of presyncope. Apart from this episode, she has never had an arrhythmia in the past, and denies a history of heart failure, cardiovascular disease and diabetes. Family History Diabetes mellitus Mother - atrial fibrillation Social History Smoking Status: Former Smoker History of Alcohol Use: Yes (socially ) Review of Systems Constitutional: + sweats, + weakness, + fatigue Respiratory: + dyspnea on exertion, + problem reported All Other Systems: Reviewed and Negative Allergies Coded Allergies: Pineapple (Verified Allergy, Severe, RAW PINEAPPLE-BURNING FACE, TIGHTNESS IN THROAT, 02/21/17) Statins (Verified Adverse Reaction, Intermediate, MUSCLE ACHING, 02/21/17) HMG-CoA-R Inhibitors (Verified Adverse Reaction, Mild, STATINS- MUSCLE ACHES, 02/21/17) Amlodipine (Verified Adverse Reaction, Unknown, BRADYCARDIA, 02/21/17) Amoxicillin (Verified Adverse Reaction, Unknown, nausea, 02/21/17) Ascorbate (Verified Adverse Reaction, Unknown, heart pounds, tachy and headache, 02/21/17) Aspirin (Verified Adverse Reaction, Unknown, upset stomach, 02/21/17) Beta-Carotene (Verified Adverse Reaction, Unknown, heart pounds, tachy and headache, 02/21/17) Cholecalciferol (Verified Adverse Reaction, Unknown, heart pounds, tachy and headache, 02/21/17) Clavulanic Acid (Verified Adverse Reaction, Unknown, nausea, 02/21/17) Cupric Oxide (Verified Adverse Reaction, Unknown, heart pounds, tachy and headache, 02/21/17) Diclofenac (Verified Adverse Reaction, Unknown, wobbly, 02/21/17) Docosahexaenoic Acid (DHA) (Verified Adverse Reaction, Unknown, heart pounds, tachy and headache, 02/21/17) Eicosapentaenoic Acid (EPA) (Verified Adverse Reaction, Unknown, heart pounds, tachy and headache, 02/21/17) Ezetimibe (Verified Adverse Reaction, Unknown, chills, myalgia, 02/21/17) Ferrous Bisglycinate (Verified Adverse Reaction, Unknown, heart pounds, tachy and headache, 02/21/17) Folic Acid (Verified Adverse Reaction, Unknown, heart pounds, tachy and headache, 02/21/17) Gemfibrozil (Verified Adverse Reaction, Unknown, EXTREME FATIGUE, 02/21/17) Hydrocodone (Verified Adverse Reaction, Unknown, decreased urine output, ) Iron (Verified Adverse Reaction, Unknown, heart pounds, tachy and headache , 02/21/17) Magnesium Oxide (Verified Adverse Reaction, Unknown, heart pounds, tachy and headache, 02/21/17) Olmesartan (Verified Adverse Reaction, Unknown, cough, fatigue, 02/21/17) POLLEN (Verified Adverse Reaction, Unknown, nasal congestion, 02/21/17) Pyridoxine (Verified Adverse Reaction, Unknown, heart pounds, tachy and headache, 02/21/17) Riboflavin (Verified Adverse Reaction, Unknown, heart pounds, tachy and headache, 02/21/17) Sodium Benzoate (Verified Adverse Reaction, Unknown, heart pounds, tachy and headache, 02/21/17) Telmisartan (Verified Adverse Reaction, Unknown, flu-like symptoms, 02/21/17 ) Thiamine (Verified Adverse Reaction, Unknown, heart pounds, tachy and headache, 02/21/17) Varenicline (Verified Adverse Reaction, Unknown, headache, nausea and vivid dreams, 02/21/17) Vitamin B12 (Verified Adverse Reaction, Unknown, heart pounds, tachy and headache, 02/21/17) Vitamin E (Verified Adverse Reaction, Unknown, heart pounds, tachy and headache, 02/21/17) Zinc Oxide (Verified Adverse Reaction, Unknown, heart pounds, tachy and headache, 02/21/17) Medications Current Inpatient Medications Medications (Trade) Dose Ordered Sig/David Route Start Time Stop Time Status Last Admin Dose Admin Sodium Chloride 1,000 ml @ 100 mls/hr Q10H IV 02/21/17 05:00 03/23/17 04:59 02/21/17 05:08 100 MLS/HR Ondansetron HCl (Zofran Inj) 4 mg Q6H PRN IV 02/21/17 04:15 03/23/17 04:14 02/21/17 08:30 4 MG Polyethylene (Miralax Powder Packet) 17 gm DAILY PRN PO 02/21/17 04:15 03/23/17 04:14 Docusate Sodium (coLACE CAP) 100 mg BID PO 02/21/17 09:00 03/23/17 08:59 02/21/17 07:44 100 MG Magnesium Chloride (Slow-Mag Tab) 64 mg QDB PO 02/21/17 07:30 03/23/17 07:59 02/21/17 07:43 64 MG Paroxetine HCl (pAXil TAB) 20 mg QAM PO 02/21/17 09:00 03/23/17 08:59 02/21/17 07:44 20 MG Senna/Docusate Sodium (Senokot S Tab) 1 tab DAILY PRN PO 02/21/17 05:00 03/23/17 04:59 Tramadol HCl (Ultram Tab) 100 mg Q4H PRN PO 02/21/17 04:15 03/23/17 04:14 02/21/17 09:18 100 MG Apixaban (Eliquis Tab) 5 mg BID PO 02/21/17 09:00 03/23/17 08:59 02/21/17 07:43 5 MG Cholecalciferol (Vitamin D Tab) 2,000 inter.unit QAM PO 02/21/17 09:00 03/23/17 08:59 02/21/17 07:43 2,000 INTER.UNIT Polyethylene (Miralax Powder Packet) 17 gm QAM PO 02/21/17 09:00 03/23/17 08:59 02/21/17 07:43 17 GM Metoprolol Tartrate (Lopressor Tab) 50 mg BID PO 02/21/17 09:00 03/23/17 08:59 02/21/17 07:43 50 MG Ceftriaxone Sodium 1 gm/ Dextrose 50 ml @ 100 mls/hr Q24H IV 02/22/17 06:00 02/27/17 05:59 Clonidine HCl (Catapres Tab) 0.1 mg QAM PO 02/21/17 09:00 03/23/17 08:59 02/21/17 07:44 0.1 MG Physical Exam Vital Signs Past 12 Hours Date Time Temp Pulse Resp B/P (MAP) Pulse Ox O2 Delivery O2 Flow Rate FiO2 02/21/17 08:18 36.9 124 22 138/81 (100) 93 Room Air 02/21/17 08:04 Room Air 02/21/17 05:05 36.9 133 18 153/101 96 Room Air 02/21/17 04:09 74 02/21/17 03:35 115 24 86 Room Air 02/21/17 03:11 94 118/51 95 115/73 109 112/72 02/21/17 01:31 138/80 02/21/17 01:19 115/85 02/21/17 01:18 80 27 94 02/21/17 00:48 94 20 95 02/21/17 00:34 97/69 02/21/17 00:32 /59 02/21/17 00:25 101 02/21/17 00:24 73/64 02/21/17 00:22 108/81 02/21/17 00:18 36.9 121 20 108/81 95 Room Air 02/21/17 00:18 95 Room Air Lungs: Respiratory effort: no dyspnea Auscultation: breath sounds normal Cardiovascular: Apical Impulse: not displaced Heart Auscultation: normal S1, normal S2, no murmurs, no rubs, no gallops, tachycardia, irregular rate rhythm (130) Data Laboratory Results: Last 24 Hours Test 02/21/17 00:12 02/21/17 00:55 02/21/17 01:00 02/21/17 01:25 White Blood Count 14.03 K/uL Red Blood Count 4.52 M/uL Hemoglobin 12.4 g/dL Hematocrit 38.4 % Mean Corpuscular Volume 85.0 fL Mean Corpuscular Hemoglobin 27.4 pg Mean Corpuscular Hemoglobin Concent 32.3 g/dl Platelet Count 437 K/uL Mean Platelet Volume 10.5 fL Neutrophils (%) (Auto) 65.1 % Lymphocytes (%) (Auto) 23.4 % Monocytes (%) (Auto) 8.6 % Eosinophils (%) (Auto) 0.7 % Basophils (%) (Auto) 0.1 % Neutrophils # (Auto) 9.12 K/uL Lymphocytes # (Auto) 3.28 K/uL Monocytes # (Auto) 1.21 K/uL Eosinophils # (Auto) 0.10 K/uL Basophils # (Auto) 0.02 K/uL RDW Standard Deviation 48.6 fL RDW Coefficient of Variation 16.1 % Immature Granulocyte % (Auto) 2.1 % Immature Granulocyte # (Auto) 0.30 K/uL Nucleated RBC Absolute Count (auto) 0.05 K/uL Nucleated Red Blood Cells % 0.4 % Sodium Level 139 mmol/L Potassium Level 4.5 mmol/L Chloride Level 105 mmol/L Carbon Dioxide Level 26 mmol/L Anion Gap 8.0 mmol/L 17.0 mmol/L Blood Urea Nitrogen 25 mg/dl Creatinine 1.40 mg/dl Est Creatinine Clear Calc Drug Dose 43.9 ml/min Estimated GFR () 44.0 Estimated GFR (Non- 38.0 BUN/Creatinine Ratio 18.1 Random Glucose 111 mg/dl Calcium Level 9.3 mg/dl Magnesium Level 2.2 mg/dl Total Bilirubin 0.5 mg/dl Direct Bilirubin mg/dl Aspartate Amino Transf (AST/SGOT) 16 U/L Alanine Aminotransferase (ALT/SGPT) 19 U/L Alkaline Phosphatase 69 U/L Total Creatine Kinase 58 U/L Creatine Kinase MB < 0.5 ng/ml Creatine Kinase MB Ratio Troponin I < 0.015 ng/ml Total Protein 7.3 gm/dl Albumin 3.0 gm/dl Chemistry Specimen Hemolysis Bedside Lactic Acid Venous 1.66 mmol/L Bedside Hemoglobin 11.9 g/dl Bedside Hematocrit 35 % Bedside Sodium 138 mEq/L Bedside Potassium 4.4 mEq/L Bedside Chloride 104 mEq/L Bedside Total CO2 22 mEq/l Bedside Blood Urea Nitrogen 27 mg/dl Bedside Creatinine 1.4 mg/dl Bedside Glucose (other) 122 mg/dl Bedside Ionized Calcium (Naima) 1.07 mmol/l Urine Color DK YELLOW Urine Appearance CLOUDY Urine pH 5.0 Urine Specific [place] 1.023 Urine Protein 1+ Urine Glucose (UA) NEG Urine Ketones TRACE Urine Occult Blood 1+ Urine Nitrite NEG Urine Bilirubin NEG Urine Urobilinogen NEG Urine Leukocyte Esterase MODERATE Urine WBC (Auto) >30 /hpf Urine RBC (Auto) 0-4 /hpf Urine Hyaline Casts (Auto) >30 /lpf Urine Epithelial Cells (Auto) >30 /lpf Urine Bacteria (Auto) NEG Urine Pathogenic Casts /lpf Test 02/21/17 06:15 02/21/17 10:55 White Blood Count 11.80 K/uL Red Blood Count 4.04 M/uL Hemoglobin 10.8 g/dL Hematocrit 34.6 % Mean Corpuscular Volume 85.6 fL Mean Corpuscular Hemoglobin 26.7 pg Mean Corpuscular Hemoglobin Concent 31.2 g/dl Platelet Count 303 K/uL Mean Platelet Volume 9.9 fL Neutrophils (%) (Auto) 57.1 % Lymphocytes (%) (Auto) 28.1 % Monocytes (%) (Auto) 11.4 % Eosinophils (%) (Auto) 0.8 % Basophils (%) (Auto) 0.2 % Neutrophils # (Auto) 6.73 K/uL Lymphocytes # (Auto) 3.32 K/uL Monocytes # (Auto) 1.35 K/uL Eosinophils # (Auto) 0.10 K/uL Basophils # (Auto) 0.02 K/uL RDW Standard Deviation 49.3 fL RDW Coefficient of Variation 16.2 % Immature Granulocyte % (Auto) 2.4 % Immature Granulocyte # (Auto) 0.28 K/uL Nucleated RBC Absolute Count (auto) 0.03 K/uL Nucleated Red Blood Cells % 0.2 % Sodium Level 141 mmol/L Potassium Level 4.3 mmol/L Chloride Level 108 mmol/L Carbon Dioxide Level 27 mmol/L Anion Gap 6.0 mmol/L Blood Urea Nitrogen 24 mg/dl Creatinine 1.10 mg/dl Est Creatinine Clear Calc Drug Dose 56.4 ml/min Estimated GFR () 58.9 Estimated GFR (Non- 50.8 BUN/Creatinine Ratio 22.0 Random Glucose 91 mg/dl Calcium Level 8.6 mg/dl Imaging: EKG: Telemetry reviewed: Assessment & Plan Atrial Flutter with Rapid Ventricular Response: Due the fact that her atrial flutter is not well-controlled with the increased dose of metoprolol, electrical cardioversion is the next best step. Ms. Durham will be scheduled for a transesophageal ECHO tomorrow to ensure there are no clots in her left atrium , and then scheduled for cardioversion. She has consented to this procedure, and the risks have been explained to her. Resident Tracking Resident Involvement: Resident Care Provided Care Provided: Adult Hospital Medicine Reviewed: Pt Seen/Exam by Me History Agree with the history as noted above. General Appearance: no apparent distress Assessment/Plan We discussed the options for treatment to include both medical and electrical cardioversion as well as ablation. As the actual duration of her AFL is not kown , we should exclude clot in the OCTAVIO with MARCIAL prior. Ablation can not be performed in the next day or so due to scheduling constraints. She prefers cardioversion at this time. We discussed the R/B/A and she is willing to proceed.
[2017-02-21] MEDS ORDERED: NURSING VERBAL MED ORDER ONE (12:30)
--- NOTE | 2017-02-21 15:58 | Progress Note ---
Orthopedic SOAP Note Subjective Date of Service: Feb 21, 2017. Post OP Day: 8 Reports: feeling well, pain controlled w PO medications, Denies: complaints, chest pain, SOB, nausea / vomiting, light headedness, calf pain, using DEVELOPMENTAL SPECIALIST Additional Notes: current admitted for A-flutter and RVR 8 days s/p Left TKA by Dr. Min recently at [facility] reports left knee doing well denies calf pain, numbness or tingling distally Problem List Medical Problems: (1) Atrial flutter with rapid ventricular response Status: Acute (2) Hypotension Status: Acute (3) Weakness Status: Acute Social History Problems: (1) S/P total knee arthroplasty Status: Acute Objective calves soft nontender, N/V intact, capillary refill less than 2 sec., dressing C /D/I, incision C/D/I, A&O x3, toes mobile, CMS intact patient sleeping upon entering the room skin reveals surrounding ecchymosis in the leg and ankle minimal swelling left lower extremity ROM: full extension, easily reaches 90 flexion incision covered with adhesive bandage, nando well placed and intact extensor mechanism intact Date Time Temp Pulse Resp B/P (MAP) Pulse Ox O2 Delivery O2 Flow Rate FiO2 02/21/17 12:06 36.9 76 16 108/66 (80) 92 Room Air 02/21/17 12:01 Room Air 02/21/17 08:18 36.9 124 22 138/81 (100) 93 Room Air 02/21/17 08:04 Room Air 02/21/17 05:05 36.9 133 18 153/101 96 Room Air 02/21/17 04:09 74 02/21/17 03:35 115 24 86 Room Air 02/21/17 03:11 94 118/51 95 115/73 109 112/72 02/21/17 01:31 138/80 02/21/17 01:19 115/85 02/21/17 01:18 80 27 94 02/21/17 00:48 94 20 95 02/21/17 00:34 97/69 02/21/17 00:32 /59 02/21/17 00:25 101 02/21/17 00:24 73/64 02/21/17 00:22 108/81 02/21/17 00:18 36.9 121 20 108/81 95 Room Air 02/21/17 00:18 95 Room Air Laboratory Results 24 Hours: Test 02/21/17 00:12 02/21/17 06:15 White Blood Count 14.03 K/uL 11.80 K/uL Red Blood Count 4.52 M/uL 4.04 M/uL Hemoglobin 12.4 g/dL 10.8 g/dL Hematocrit 38.4 % 34.6 % Mean Corpuscular Volume 85.0 fL 85.6 fL Mean Corpuscular Hemoglobin 27.4 pg 26.7 pg Mean Corpuscular Hemoglobin Concent 32.3 g/dl 31.2 g/dl Platelet Count 437 K/uL 303 K/uL Mean Platelet Volume 10.5 fL 9.9 fL Neutrophils (%) (Auto) 65.1 % 57.1 % Lymphocytes (%) (Auto) 23.4 % 28.1 % Monocytes (%) (Auto) 8.6 % 11.4 % Eosinophils (%) (Auto) 0.7 % 0.8 % Basophils (%) (Auto) 0.1 % 0.2 % Neutrophils # (Auto) 9.12 K/uL 6.73 K/uL Lymphocytes # (Auto) 3.28 K/uL 3.32 K/uL Monocytes # (Auto) 1.21 K/uL 1.35 K/uL Eosinophils # (Auto) 0.10 K/uL 0.10 K/uL Basophils # (Auto) 0.02 K/uL 0.02 K/uL Assessment 8 days s/p Left TKA A-flutter with associated RVR Plan continue post op care regarding left TKA WBAT left L.E. keep incision covered while in hospital scheduled for cardioversion tomorrow 02/22/17 and DC home has f/u Sunday with Dr. Min for staple removal Dr. Min is out of town and Dr. Jenkins will cover accordingly with any other questions or concerns also regarding this patient while she is admitted any other questions notify [facility] [phone]
--- NOTE | 2017-02-21 19:18 | Family Medicine Progress Note ---
Progress Note Date of Service Feb 21, 2017. Subjective Pt evaluation today including: conversation w/ patient Pt admitted earlier today, was reviewed on rounds with Dr Carbajal. Mrs Durham felt ok today, despite when her heart would race when she would get up which contributed to dizziness. She denied any chest pain or shortness of breath. She understood she was going to be cardioverted tomorrow. In the afternoon I was called that the pt spontaneously converted back to NSR. She had no symptoms at that time. Constitutional: No fever, No chills ENT: No hearing loss Respiratory: No cough, No sputum Cardiovascular: No chest pain All Other Systems: Reviewed and Negative Medications Current Inpatient Medications Medications (Trade) Dose Ordered Sig/David Route Start Time Stop Time Status Last Admin Dose Admin Ondansetron HCl (Zofran Inj) 4 mg Q6H PRN IV 02/21/17 04:15 03/23/17 04:14 02/21/17 08:30 4 MG Polyethylene (Miralax Powder Packet) 17 gm DAILY PRN PO 02/21/17 04:15 03/23/17 04:14 Docusate Sodium (coLACE CAP) 100 mg BID PO 02/21/17 09:00 03/23/17 08:59 02/21/17 07:44 100 MG Magnesium Chloride (Slow-Mag Tab) 64 mg QDB PO 02/21/17 07:30 03/23/17 07:59 02/21/17 07:43 64 MG Paroxetine HCl (pAXil TAB) 20 mg QAM PO 02/21/17 09:00 03/23/17 08:59 02/21/17 07:44 20 MG Senna/Docusate Sodium (Senokot S Tab) 1 tab DAILY PRN PO 02/21/17 05:00 03/23/17 04:59 Tramadol HCl (Ultram Tab) 100 mg Q4H PRN PO 02/21/17 04:15 03/23/17 04:14 02/21/17 15:29 100 MG Apixaban (Eliquis Tab) 5 mg BID PO 02/21/17 09:00 03/23/17 08:59 02/21/17 07:43 5 MG Cholecalciferol (Vitamin D Tab) 2,000 inter.unit QAM PO 02/21/17 09:00 03/23/17 08:59 02/21/17 07:43 2,000 INTER.UNIT Polyethylene (Miralax Powder Packet) 17 gm QAM PO 02/21/17 09:00 03/23/17 08:59 02/21/17 07:43 17 GM Metoprolol Tartrate (Lopressor Tab) 50 mg BID PO 02/21/17 09:00 03/23/17 08:59 02/21/17 07:43 50 MG Ceftriaxone Sodium 1 gm/ Dextrose 50 ml @ 100 mls/hr Q24H IV 02/22/17 06:00 02/27/17 05:59 Clonidine HCl (Catapres Tab) 0.1 mg QAM PO 02/21/17 09:00 03/23/17 08:59 02/21/17 07:44 0.1 MG Objective Vital Signs Date Time Temp Pulse Resp B/P (MAP) Pulse Ox O2 Delivery O2 Flow Rate FiO2 02/21/17 16:02 Room Air 02/21/17 15:09 36.8 69 16 126/76 (93) 96 Room Air 02/21/17 12:06 36.9 76 16 108/66 (80) 92 Room Air 02/21/17 12:01 Room Air 02/21/17 08:18 36.9 124 22 138/81 (100) 93 Room Air 02/21/17 08:04 Room Air 02/21/17 05:05 36.9 133 18 153/101 96 Room Air 02/21/17 04:09 74 02/21/17 03:35 115 24 86 Room Air 02/21/17 03:11 94 118/51 95 115/73 109 112/72 02/21/17 01:31 138/80 02/21/17 01:19 115/85 02/21/17 01:18 80 27 94 02/21/17 00:48 94 20 95 02/21/17 00:34 97/69 02/21/17 00:32 /59 02/21/17 00:25 101 02/21/17 00:24 73/64 02/21/17 00:22 108/81 02/21/17 00:18 36.9 121 20 108/81 95 Room Air 02/21/17 00:18 95 Room Air Physical Exam General Appearance: WD/WN, no apparent distress Eyes: normal inspection, PERRL ENT: hearing grossly normal Neck: supple, no JVD Respiratory/Chest: lungs clear, normal breath sounds, no respiratory distress Cardiovascular: regular rate, rhythm, no murmur Abdomen: normal bowel sounds, non tender, soft Extremities: no pedal edema Neurologic/Psychiatric: alert Skin: no rash Laboratory Results Last 24 Hours Test 02/21/17 00:12 02/21/17 00:55 02/21/17 01:00 02/21/17 01:25 White Blood Count 14.03 K/uL Red Blood Count 4.52 M/uL Hemoglobin 12.4 g/dL Hematocrit 38.4 % Mean Corpuscular Volume 85.0 fL Mean Corpuscular Hemoglobin 27.4 pg Mean Corpuscular Hemoglobin Concent 32.3 g/dl Platelet Count 437 K/uL Mean Platelet Volume 10.5 fL Neutrophils (%) (Auto) 65.1 % Lymphocytes (%) (Auto) 23.4 % Monocytes (%) (Auto) 8.6 % Eosinophils (%) (Auto) 0.7 % Basophils (%) (Auto) 0.1 % Neutrophils # (Auto) 9.12 K/uL Lymphocytes # (Auto) 3.28 K/uL Monocytes # (Auto) 1.21 K/uL Eosinophils # (Auto) 0.10 K/uL Basophils # (Auto) 0.02 K/uL RDW Standard Deviation 48.6 fL RDW Coefficient of Variation 16.1 % Immature Granulocyte % (Auto) 2.1 % Immature Granulocyte # (Auto) 0.30 K/uL Nucleated RBC Absolute Count (auto) 0.05 K/uL Nucleated Red Blood Cells % 0.4 % Sodium Level 139 mmol/L Potassium Level 4.5 mmol/L Chloride Level 105 mmol/L Carbon Dioxide Level 26 mmol/L Anion Gap 8.0 mmol/L 17.0 mmol/L Blood Urea Nitrogen 25 mg/dl Creatinine 1.40 mg/dl Est Creatinine Clear Calc Drug Dose 43.9 ml/min Estimated GFR () 44.0 Estimated GFR (Non- 38.0 BUN/Creatinine Ratio 18.1 Random Glucose 111 mg/dl Calcium Level 9.3 mg/dl Magnesium Level 2.2 mg/dl Total Bilirubin 0.5 mg/dl Direct Bilirubin mg/dl Aspartate Amino Transf (AST/SGOT) 16 U/L Alanine Aminotransferase (ALT/SGPT) 19 U/L Alkaline Phosphatase 69 U/L Total Creatine Kinase 58 U/L Creatine Kinase MB < 0.5 ng/ml Creatine Kinase MB Ratio Troponin I < 0.015 ng/ml Total Protein 7.3 gm/dl Albumin 3.0 gm/dl Chemistry Specimen Hemolysis Bedside Lactic Acid Venous 1.66 mmol/L Bedside Hemoglobin 11.9 g/dl Bedside Hematocrit 35 % Bedside Sodium 138 mEq/L Bedside Potassium 4.4 mEq/L Bedside Chloride 104 mEq/L Bedside Total CO2 22 mEq/l Bedside Blood Urea Nitrogen 27 mg/dl Bedside Creatinine 1.4 mg/dl Bedside Glucose (other) 122 mg/dl Bedside Ionized Calcium (Naima) 1.07 mmol/l Urine Color DK YELLOW Urine Appearance CLOUDY Urine pH 5.0 Urine Specific [place] 1.023 Urine Protein 1+ Urine Glucose (UA) NEG Urine Ketones TRACE Urine Occult Blood 1+ Urine Nitrite NEG Urine Bilirubin NEG Urine Urobilinogen NEG Urine Leukocyte Esterase MODERATE Urine WBC (Auto) >30 /hpf Urine RBC (Auto) 0-4 /hpf Urine Hyaline Casts (Auto) >30 /lpf Urine Epithelial Cells (Auto) >30 /lpf Urine Bacteria (Auto) NEG Urine Pathogenic Casts /lpf Test 02/21/17 06:15 White Blood Count 11.80 K/uL Red Blood Count 4.04 M/uL Hemoglobin 10.8 g/dL Hematocrit 34.6 % Mean Corpuscular Volume 85.6 fL Mean Corpuscular Hemoglobin 26.7 pg Mean Corpuscular Hemoglobin Concent 31.2 g/dl Platelet Count 303 K/uL Mean Platelet Volume 9.9 fL Neutrophils (%) (Auto) 57.1 % Lymphocytes (%) (Auto) 28.1 % Monocytes (%) (Auto) 11.4 % Eosinophils (%) (Auto) 0.8 % Basophils (%) (Auto) 0.2 % Neutrophils # (Auto) 6.73 K/uL Lymphocytes # (Auto) 3.32 K/uL Monocytes # (Auto) 1.35 K/uL Eosinophils # (Auto) 0.10 K/uL Basophils # (Auto) 0.02 K/uL RDW Standard Deviation 49.3 fL RDW Coefficient of Variation 16.2 % Immature Granulocyte % (Auto) 2.4 % Immature Granulocyte # (Auto) 0.28 K/uL Nucleated RBC Absolute Count (auto) 0.03 K/uL Nucleated Red Blood Cells % 0.2 % Sodium Level 141 mmol/L Potassium Level 4.3 mmol/L Chloride Level 108 mmol/L Carbon Dioxide Level 27 mmol/L Anion Gap 6.0 mmol/L Blood Urea Nitrogen 24 mg/dl Creatinine 1.10 mg/dl Est Creatinine Clear Calc Drug Dose 56.4 ml/min Estimated GFR () 58.9 Estimated GFR (Non- 50.8 BUN/Creatinine Ratio 22.0 Random Glucose 91 mg/dl Calcium Level 8.6 mg/dl Thyroid Stimulating Hormone (TSH) 2.120 uIu/ml Assessment and Plan 72 yo F with atrial flutter, was due for cardioversion, but spontaneously converted to NSR. Overall: We will continue to monitor on telemetry overnight. Will discuss w/Cardiology in AM, cardioversion may be unnecessary if pt remains in sinus rhythm Further management per Dr Brown's note from earlier today FULL CODE Remains on Telemetry Resident Physician Supervision Note: I was present with PGY3 Dr. Jada Cheek during the history and exam. I discussed the case with the resident and agree with the findings and plan as documented in the note. Any exceptions or clarifications are listed here: none. During AM bedside rounds patient was still in a flutter. Fortunately she later converted back to NSR in the afternoon. She had no complaints in the AM. VSS gen - nad, obese neck - no JVD heart - irregular, was not tachy during my visit lungs - CTA b/l abd - soft, NT ext - left knee covered with dressing from recent TKR; mild edema left ankle, none on right skin - extensive ecchymoses throughout the left leg A/P: 1. a flutter - now back in NSR. Cont BB, eliquis, telemetry. If remains in NSR can d/c back to [facility] tomorrow. Appreciate Dr. Montalvo's consult. 2. ?UTI - cont rocephin, follow cx's. 3. acute kidney injury - resolved. Documented By: Jaylen Carbajal MD
[2017-02-22] MEDS: TRAMADOL HCL 50 MG TAB PO PRN ×3 (02:12→11:50)
[2017-02-22 03:48] VITALS: BP_SYST 134; BP_SYST 145; BP_SYST 155; BP_DIAS 85; BP_DIAS 88; BP_DIAS 97; PULSE 64; PULSE 75; PULSE 78; TEMP 36.9; O2SAT 95
[2017-02-22 05:32] LABS: HEMATOCRIT 32.1 % (37-47); MEAN CORPUSCULAR HGB CONC 29.9 g/dl (32-36); MEAN PLATELET VOLUME 9.8 fL (7.4-10.4); PLATELET COUNT 287 K/uL (130-400); RED BLOOD COUNT 3.69 M/uL (4.2-5.4); WHITE BLOOD COUNT 9.05 K/uL (4.8-10.8)
[2017-02-22 05:57] LABS: BUN/CREATININE RATIO 20.6 (10-20); CALCIUM 8.8 mg/dl (8.5-10.1); CREATININE 1.1 mg/dl (0.60-1.20); POTASSIUM 4.4 mmol/L (3.5-5.1)
[2017-02-22] MEDS ORDERED: CEFTRIAXONE SOD INJ 1 GM in DEXTROSE 5% ADD-VANTAGE 50ML 50 ML IV SCH (06:00)
[2017-02-22 07:38] VITALS: BP 146/76; PULSE 71
[2017-02-22] MEDS ORDERED: PROPOFOL IV EMULSION 10 MG/ML 20 ML VIAL IV ONE (07:45)
[2017-02-22] MEDS: POLYETHYLENE (MIRALAX) 17 GM PACK PO SCH (07:47)
[2017-02-22] MEDS: METOPROLOL TARTRATE 50 MG TAB PO SCH (07:48)
[2017-02-22] MEDS: MAGNESIUM CHLORIDE 64MG DELAYED REL TAB PO SCH (07:48)
[2017-02-22] MEDS: APIXABAN 2.5 MG TAB PO SCH (07:48)
[2017-02-22] MEDS: CLONIDINE HCL 0.1 MG TAB PO SCH (07:49)
[2017-02-22] MEDS: DOCUSATE SODIUM 100 MG CAP PO SCH (07:49)
[2017-02-22] MEDS: PAROXETINE 20 MG TAB PO SCH (07:49)
[2017-02-22] MEDS: CHOLECALCIFEROL 1000 INTER.UNIT TAB PO SCH (07:49)
[2017-02-22 07:50] VITALS: BP_SYST 135; BP_SYST 140; BP_SYST 154; BP_DIAS 70; BP_DIAS 80; BP_DIAS 83; PULSE 73; PULSE 75; PULSE 79; TEMP 36.8; O2SAT 97
[2017-02-22 08:00] VITALS: O2SAT 97
--- NOTE | 2017-02-22 09:04 | Orthopedic Progress Note ---
Orthopedic Progress Note Date of Service Feb 22, 2017. Subjective Post OP Day: 9 Reports: feeling well, pain controlled w PO medications, Denies: complaints, chest pain, SOB, nausea / vomiting, light headedness, calf pain Additional Notes: Requesting another script for pain medication to go home with. Objective calves soft nontender, N/V intact, capillary refill less than 2 sec., dressing C /D/I, incision C/D/I, A&O x3, toes mobile Silver[place] in place, she wanted to leave on until she got home this afternoon. Moves toes well. Ecchymosis left lower leg. Warmth to left knee as expected from surgery. Small effusion left knee. Able to SLR without extensor lag. Extends to zero in bed. No foot or ankle pain. Date Time Temp Pulse Resp B/P (MAP) Pulse Ox O2 Delivery O2 Flow Rate FiO2 02/22/17 07:50 36.8 75 20 140/70 (93) 97 Room Air 73 154/80 (104) 79 135/83 (100) 02/22/17 07:38 71 146/76 (99) 02/22/17 04:00 Nasal Cannula 2.0 02/22/17 03:48 36.9 64 19 145/85 (105) 95 Nasal Cannula 2.0 75 134/88 (103) 78 155/97 (116) 02/21/17 23:59 Nasal Cannula 2.0 02/21/17 23:32 36.7 68 19 124/68 (86) 92 Nasal Cannula 2.0 02/21/17 20:37 82 135/84 (101) 02/21/17 20:16 36.4 69 18 120/86 (97) 93 Room Air 02/21/17 20:00 Room Air 02/21/17 16:02 Room Air 02/21/17 15:09 36.8 69 16 126/76 (93) 96 Room Air 02/21/17 12:06 36.9 76 16 108/66 (80) 92 Room Air 02/21/17 12:01 Room Air Laboratory Results 24 Hours: Test 02/22/17 05:08 Hematocrit 32.1 % Hemoglobin 9.6 g/dL Assessment & Plan Assessment: 9 days s/p Left TKA A-flutter with associated RVR - converted to NSR yesterday Plan: continue post op care regarding left TKA WBAT left L.E. keep incision covered while in hospital PT/exercises while in hospital. has f/u Sunday with Dr. Min for staple removal and start of outpatient physical therapy Is currently on Eliquis for treatment of A-fib - Lovenox discontinued. Continue thigh TEDs bilateral lower extremities x 4 weeks post op. OK from ortho standpoint for discharge home when cleared medically. Script for tramadol written and placed on chart. - [place] PDMP checked, no issues identified Dr. Min is out of town and Dr. Jenkins will cover accordingly with any other questions or concerns also regarding this patient while she is admitted any other questions notify [facility] [phone]
[2017-02-22] MEDS ORDERED: TRAM-10 PO (09:06)
[2017-02-22] MEDS ORDERED: METO50TA16 PO (11:14)
--- NOTE | 2017-02-22 11:19 | Discharge Instructions ---
Discharge Instructions Date of Service Feb 22, 2017. Admission Reason for Admission: Dizziness Discharge Discharge Diagnosis / Problem: Atrial flutter, dizziness Discharge Goals Goal(s): Decrease discomfort Activity Recommendations Activity Limitations: per Instructions/Follow-up section As instructed by orthopedic surgeon Continue physical therapy at home . Instructions / Follow-Up Instructions / Follow-Up Follow up with Dr. Montalvo (cardiology) as arranged Continue with Physical therapy as planned If symptoms return, seek medical help as soon as possible. Follow up with PCP within 1 week. Current Hospital Diet Patient's current hospital diet: AHA Diet (Heart Healthy) Discharge Diet Recommended Diet: AHA Diet (Heart Healthy) Pending Studies Studies pending at discharge: no Laboratory Results Lipid Panel Test 02/14/17 05:33 Range/Units Triglycerides Level 93 0-150 mg/dl Cholesterol Level 205 H 0-200 mg/dl HDL Cholesterol 46 mg/dl Cholesterol/HDL Ratio 4.5 LDL Cholesterol, Calculated 140 mg/dl Medical Emergencies . Who to Call and When: Medical Emergencies: If at any time you feel your situation is an emergency, please call 911 immediately. . Non-Emergent Contact Non-Emergency issues call your: Primary Care Provider . . "Provider Documentation" section prepared by Junie Enrique. . VTE Core Measure Inpt VTE Proph given/why not?: Other Anticoagulation (eliquis)
--- NOTE | 2017-02-22 11:43 | Discharge Summary ---
Discharge Summary Date of Service Feb 22, 2017. (Junie Enrique M.D.) Discharge Summary Admission Date: Feb 21, 2017 at 04:22 Discharge Date: Feb 22, 2017 Discharge Disposition: Home Principal Diagnosis: Atrial flutter Problems/Secondary Diagnoses: Dizziness and dyspnea Immunizations: Have You Had Influenza Vaccine: Yes History of Tetanus Vaccine?: UTD History of Pneumococcal: Yes History of Hepatitis B Vaccine: Yes Procedures: CXR: FINDINGS: Moderate stable cardiomegaly. Unchanging calcified granuloma left base. Lungs currently are clear. No focal infiltrate. IMPRESSION: Moderate stable cardiomegaly. No acute process Consultations: Cardiology, Orthopedics, PT/OT (Junie Enrique M.D.) Problems/Secondary Diagnoses: HTN recent left TKR (total knee replacement) acute kidney injury - resolved; discharge creatinine 1.1 depression anemia (Jaylen Carbajal MD) Medication Reconciliation New Medications: Tramadol (Ultram) 50 Mg Tab 50-100 MG PO Q4H PRN for Pain, #40 TAB Metoprolol Tartrate (Lopressor) (Lopressor) 50 Mg Tab 50 MG PO BID for 30 Days, #60 TAB Continued Medications: Apixaban (Eliquis) 5 Mg Tab 5 MG PO BID, TAB Cholecalciferol (Vitamin D3) 2,000 Unit Tab 2000 INTUNIT PO QAM Clonidine Hcl (Catapres) 0.1 Mg Tab 0.15 MG PO QAM for 90 Days, #135 TAB 3 Refills TAKES 1 AND 1/2 TABS. Docusate Sodium (Docusate Sodium) 100 Mg Cap 100 MG PO BID for 7 Days, #14 CAP Magnesium Chloride (Slow-Mag Tab) 64 Mg Tabcr 64 MG PO QDB, TAB Magnesium Citrate (Magnesium Citrate) Unknown Strength Liz Unknown Dose PO DAILY PRN for Constipation Paroxetine (Paxil) 20 Mg Tab 20 MG PO QAM Polyethylene Glycol 3350 (Bulk (Polyethylene Glycol 3350) 1 Pow Pow 17 GM PO QAM for 30 Days, #527 GM 11 Refills Senna/Docusate Sod (Senokot S) 1 Tab Tab 1 TAB PO DAILY PRN for Constipation, TAB Tramadol (Ultram) 50 Mg Tab 100 MG PO Q4H PRN for Pain, TAB MAX OF 400 MG IN 24 HOURS. Discontinued Medications: Metoprolol Tartrate (Lopressor) (Lopressor) 100 Mg Tab 100 MG PO BID, TAB Discharge Exam Review of Systems: Constitutional: No fever, No chills, No fatigue, No problem reported Respiratory: No cough, No sputum, No wheezing, No shortness of breath, No dyspnea on exertion Cardiovascular: No chest pain, No orthopnea, No PND, No edema, No palpitations Abdomen: No pain, No nausea, No vomiting, No diarrhea, No constipation Musculoskeletal: + joint pain (left knee, manageable) Genitourinary - Female: No dysuria, No urinary frequency, No urinary urgency Neurologic: No memory loss, No paralysis, No weakness Psychiatric: No depression symptoms Endocrine: No fatigue Hematologic / Lymphatic: No abnormal bleeding/bruising Integumentary: No rash Physical Exam: General Appearance: WD/WN, no apparent distress Eyes: normal inspection, PERRL, EOMI ENT: hearing grossly normal, pharynx normal Neck: supple, no adenopathy, no JVD, no carotid bruits, trachea midline Respiratory/Chest: chest non-tender, lungs clear, normal breath sounds, no respiratory distress, no accessory muscle use Cardiovascular: regular rate, rhythm, no edema, no JVD, no murmur, normal peripheral pulses Abdomen / GI: normal bowel sounds, non tender, soft, no organomegaly, no pulsatile mass Extremities: no pedal edema, non-tender, + pertinent finding (extensive bruising from recent left TKR) Neurologic/Psychiatric: meal room hand II-XII nml as tested, no motor/sensory deficits , alert, normal mood/affect, normal reflexes, oriented x 3 Skin: normal color, warm/dry, no rash (Junie Enrique M.D.) Hospital Course HPI: 72-year-old female presented with dyspnea on exertion and dizziness which began on 02/20/17 Background of atrial flutter diagnosed on 02/17/17, (2 days s/p left TKR) managed with high dose metoprolol (100mg BID) and discharged home on 02/19/17. Symptoms at this presentation are similar to those reported at last visit. Hospital course: Dizziness/lightheadedness: - Likely secondary to excessive beta blockade /volume depletion - Decreased metoprolol to 50 mg BID - Reviewed by Dr. Montalvo from cardiology, patient will follow up with him as outpatient. Atrial flutter with RVR: - Currently on metoprolol 100 mg twice a day, decreased metoprolol to 50 mg BID - Anti-coagulation with Eliquis - Seen by cardiology and scheduled for cardioversion; cardioversion cancelled as she converted to NSR spontaneously Echocardiogram 02/18/17 * 1. Normal left ventricular size with hyperdynamic systolic function. EF >70%. No regoinal wall motion abnormalities. Mild concentric left ventricular hypertrophy. * 2. There is moderate mitral annular calcification. * 3. Normal estimated right ventricular systolic pressure; RVSP 23 mmHg. * 4. Compared to prior study on 03/10/2013, LV systolic function is now hyperdynamic. Rhythm is now atrial flutter (rate controlled). Abnormal UA, suspected UTI - UA positive for moderate leuk esterase and >30 WBC - Urine culture negative - Rocephin DCd Hypertension: - clonidine was decreased to 0.1 mg QAM and QHS during last admission - continue on 0.1 mg QAM Acute kidney injury with a history of CKD stage 3 -Creatinine of 1.4 ,likely secondary to volume depletion -KAVON resolved -I would recommend repeating BMP in 1 week with PCP s/p left TKA: - Pain control with tramadol - PT/OT to evaluate - Follow up with orthopedic surgery and PT as scheduled as an outpatient Depression: -continue Paxil 20 mg daily DVT prophylaxis: Eliquis Total Time Spent: Greater than 30 minutes This includes examination of the patient, discharge planning, medication reconciliation, and communication with other providers. (Junie Enrique M.D.) Resident Physician Supervision Note: I was present with PGY 1 Dr. Junie Enrique during the discharge history and exam. I discussed the case with the resident and agree with the findings and plan as documented in the discharge summary. Any exceptions or clarifications are listed here: none. 72yo female who was hospitalized from February 13 to February 15 after undergoing an elective left TKR. She had an uneventful hospitalization and post-op course. She presented again on February 17 with new-onset atrial flutter. She was placed on rate-controlling agents and systemic anticoagulation and discharged to back to [facility] on 02/19/17. She returned to [facility] on 02/21/17 with rapid a. flutter and dizziness despite use of her beta marilu. Fortunately she spontaneously converted back to normal sinus rhythm (NSR) on 02/21 and her dizziness, dyspnea, and other cardiopulmonary symptoms resolved. She was observed until the next day and remained in NSR. She requested discharge to home rather than returning to [facility]. She was seen by PT/OT and was in fact cleared to return home. At discharge she will remain on metoprolol twice daily and eliquis twice daily. Cardiology follow-up will be arranged. Discharge exam: gen - nad, obese neck - no JVD heart - RRR, s1, s2 lungs - CTA b/l abd - soft, NT ext - mild edema left ankle with ecchymoses of left leg; left knee dressing intact; no edema right ankle Documented By: Jaylen Carbajal MD (Jaylen Carbajal MD) Discharge Instructions Please refer to the electronic Patient Visit Report (Discharge Instructions) for additional information. (Junie Enrique M.D.) Follow-Up To be seen by cardiology (Dr. Montalvo) and physical therapy as planned. Follow up with PCP within 1 week. (Junie Enrique M.D.) Additional Copies To John Montalvo MD; Jasson Min M.D.; Finesse Newell M.D. Resident Tracking Resident Involvement: Resident Care Provided Care Provided: Adult [facility] (Junie Enrique M.D.)
[2017-02-22 12:11] VITALS: BP 115/75; PULSE 65; TEMP 37; O2SAT 94
[2017-02-22 14:09] VITALS: BP 115/75; PULSE 65; TEMP 37; O2SAT 94
--- NOTE | 2017-02-22 18:34 | Cardiology Follow-Up ---
Subjective Date of Service: Feb 22, 2017. Pt evaluation today including: conversation w/ patient, physical exam, chart review, lab review, review of inpatient medication list, conversation w/ attending (Dr. Cheek senior resident) History of Present Illness She was evaluated early today, prior to discharge, at approximately 8:30 a.m. She denies palpitations, chest pain, syncope, near-syncope, or shortness of breath. She was readmitted with the same ill feeling that she had with atrial flutter with rapid ventricular response as last hospitalization, a few days prior. She spontaneously converted to sinus rhythm at 10:48 a.m. on 02/21/2017 and remains in sinus rhythm on telemetry. She denies bleeding. Review of systems: As above. Social History Smoking Status: Former Smoker History of Alcohol Use: Yes (socially ) Review of Systems Respiratory: + dyspnea on exertion, + problem reported Cardiac: No chest pain Medications Medications Dose Route/Sig Max Daily Dose Days Date Category Dose Instructions Lopressor (Metoprolol Tartrate) 50 Mg Tab 50 Mg PO BID 30 02/22/17 Rx Ultram (Tramadol HCl) 50 Mg Tab 50-100 Mg PO Q4H PRN 02/22/17 Rx Slow-Mag Tab (Magnesium Chloride) 64 Mg Tabcr 64 Mg PO QDB 02/21/17 Reported Docusate Sodium 100 Mg Cap 100 Mg PO BID 7 02/21/17 Reported Catapres (Clonidine Hcl) 0.1 Mg Tab 0.15 Mg PO QAM 90 02/21/17 Reported TAKES 1 AND 1/2 TABS. Eliquis (Apixaban) 5 Mg Tab 5 Mg PO BID 02/21/17 Reported Ultram (Tramadol HCl) 50 Mg Tab 100 Mg PO Q4H PRN 02/17/17 Reported MAX OF 400 MG IN 24 HOURS. Senokot S (Senna/Docusate Sodium) 1 Tab Tab 1 Tab PO DAILY PRN 02/17/17 Reported Magnesium Citrate Unknown Strength Liz Unknown Dose PO DAILY PRN 02/17/17 Reported Polyethylene Glycol 3350 (Polyethylene Glycol 3350 (Bulk) 1 Pow Pow 17 Gm PO QAM 30 01/25/17 Reported Vitamin D3 (Cholecalciferol) 2,000 Unit Tab 2,000 Intunit PO QAM 03/18/15 Reported Paxil (Paroxetine HCl) 20 Mg Tab 20 Mg PO QAM 01/04/09 Reported Objective Vital Signs Past 12 Hours Date Time Temp Pulse Resp B/P (MAP) Pulse Ox O2 Delivery O2 Flow Rate FiO2 02/22/17 14:09 37.0 65 18 94 Room Air 02/22/17 12:11 37.0 65 18 115/75 (88) 94 Room Air 02/22/17 12:00 Room Air 02/22/17 08:00 97 Room Air 02/22/17 07:50 36.8 75 20 140/70 (93) 97 Room Air 73 154/80 (104) 79 135/83 (100) 02/22/17 07:38 71 146/76 (99) Last Recorded Weight-Kilograms: 99.000 Intake & Output 8-Hour Column 02/22/17 02/23/17 02/23/17 16:00 00:00 08:00 Intake Total 475 ml Balance 475 ml 24-Hour Column 02/23/17 08:00 Intake Total 475 ml Balance 475 ml Physical Exam Lungs: Respiratory effort: no dyspnea Auscultation: breath sounds normal Cardiovascular: Apical Impulse: not displaced Heart Auscultation: normal S1, normal S2, no murmurs, no rubs, no gallops, tachycardia, irregular rate rhythm (130) Gen.: No acute distress. Alert and oriented. HEENT: Anicteric sclera. Neck: No JVD. Cardiac: No ventricular heave. Regular. Normal S1-S2. No murmurs, rubs, or gallops. Pulmonary: Clear to auscultation bilaterally without wheezes, rales, or rhonchi. Abdomen: Soft, nontender, nondistended, with normoactive bowel sounds. No bruits noted. Extremities: 2+ radial pulses bilaterally. 2+ posterior tibialis pulses bilaterally. Trace left lower extremity edema. No cyanosis. Psychiatric: Affect appears appropriate. Data Laboratory Results: Last 24 Hours Test 02/22/17 05:08 White Blood Count 9.05 K/uL Red Blood Count 3.69 M/uL Hemoglobin 9.6 g/dL Hematocrit 32.1 % Mean Corpuscular Volume 87.0 fL Mean Corpuscular Hemoglobin 26.0 pg Mean Corpuscular Hemoglobin Concent 29.9 g/dl RDW Standard Deviation 51.9 fL RDW Coefficient of Variation 16.7 % Platelet Count 287 K/uL Mean Platelet Volume 9.8 fL Nucleated RBC Absolute Count (auto) 0.04 K/uL Nucleated Red Blood Cells % 0.5 % Sodium Level 141 mmol/L Potassium Level 4.4 mmol/L Chloride Level 108 mmol/L Carbon Dioxide Level 26 mmol/L Anion Gap 7.0 mmol/L Blood Urea Nitrogen 23 mg/dl Creatinine 1.10 mg/dl Est Creatinine Clear Calc Drug Dose 56.4 ml/min Estimated GFR () 58.9 Estimated GFR (Non- 50.8 BUN/Creatinine Ratio 20.6 Random Glucose 96 mg/dl Calcium Level 8.8 mg/dl Telemetry reviewed: Spontaneously converted to sinus rhythm on 10:40 a.m. on 12/2016. No further arrhythmia since then. Assessment and Plan ASSESSMENT/PLAN: 1. Atrial flutter: She spontaneously converted. Could represent postoperative atrial flutter, but difficult to say at this point. If atrial flutter returns, would consider anti rhythmic therapy verses atrial flutter ablation. She prefers ablation. She met Dr. Montalvo of electrophysiology yesterday. This was related to him and she will follow-up with him as an outpatient. Continue anticoagulation for stroke risk reduction. Long-term anticoagulation can be further discussed and determined by electrophysiology when she follows. 2. Disposition: Follow-up with Dr. Montalvo as an outpatient. His office was personally notified to schedule appointment prior to discharge.
== END 2017-02-22 14:45 | disposition home or self-care (01) | DRG 309 ==
LOC: EDBD 00:18 → C.EDA 00:20 → C.2T 04:22 → ENRESERV 04:31
PROVIDERS: ADMIT Family Medicine; ATTEND Internal Medicine
DX: I48.92 Unspecified atrial flutter (principal); N17.9 Acute kidney failure, unspecified; N39.0 Urinary tract infection, site not specified; R42 Dizziness and giddiness; T44.7X5A Adverse effect of beta-adrenoreceptor antagonists, initial encounter; E86.9 Volume depletion, unspecified; I95.1 Orthostatic hypotension; I13.10 Hypertensive heart and chronic kidney disease without heart failure, with stage 1 through stage 4 chronic kidney disease, or unspecified chronic kidney disease; N18.3 Chronic kidney disease, stage 3 (moderate); D50.9 Iron deficiency anemia, unspecified; F32.9 Major depressive disorder, single episode, unspecified; E66.3 Overweight; Z51.81 Encounter for therapeutic drug level monitoring; Z79.899 Other long term (current) drug therapy; Z79.01 Long term (current) use of anticoagulants; Z96.652 Presence of left artificial knee joint; Z68.35 Body mass index [BMI] 35.0-35.9, adult; Z85.3 Personal history of malignant neoplasm of breast; Z86.19 Personal history of other infectious and parasitic diseases; Z87.891 Personal history of nicotine dependence; Z83.3 Family history of diabetes mellitus; Z82.49 Family history of ischemic heart disease and other diseases of the circulatory system

== ENCOUNTER → 2017-04-15 | Outpatient (CLI) | payer OTHER ==
[~2017-04-15] MED LIST changes: +APIX1TAB3 PO; -CLC100 PO; +CLON0.1T12 PO; -CTP1 PO; +DOCU100C31 PO; -ELQ25 PO; +SLWMEC PO; -magnesium chloride PO
--- NOTE | 2017-04-15 15:02 | DIAGNOSTIC IMAGING REPORT ---
BILATERAL LOWER EXTREMITY VENOUS DOPPLER HISTORY: Acute right lower extremity swelling COMPARISON STUDY: None. FINDINGS: There is normal compressibility, flow, and augmentation within the right lower extremity deep venous system. IMPRESSION: No sonographic evidence of deep venous thrombosis within the right lower extremity. Electronically signed by: Bryan George M.D. 04/15/2017 3:01 PM Dictated Date/Time: 04/15/2017 3:00 PM
--- NOTE | 2017-04-15 15:23 | DIAGNOSTIC IMAGING REPORT ---
RIGHT FOOT MIN 3 VIEWS ROUTINE HISTORY: 72 years-old Female acute right-sided foot swelling. COMPARISON: None available TECHNIQUE: 3 views of the right foot. FINDINGS: There is mild asymmetric cortical thickening involving the lateral aspect of the right fourth metatarsal. No is made of an peroneum. There is moderate dorsal forefoot and midfoot soft tissue swelling without certain acute fracture or dislocation identified. There is prominent dorsal spurring of the tarsal metatarsal joints with minimal spurring of the calcaneus about the Achilles insertion site. There are questionable erosive changes involving the second tarsometatarsal joint. Bones are mildly demineralized. IMPRESSION: 1. Moderate dorsal soft tissue swelling without acute fracture. There are questioned erosive changes involving the second tarsal metatarsal joint which could be further evaluated with CT if clinically indicated. 2. Mild cortical thickening along the lateral aspect of the fourth metatarsal shaft may reflect healing stress fracture. 3. Mild bone demineralization is noted. The above report was generated using voice recognition software. It may contain grammatical, syntax or spelling errors. Electronically signed by: Bryan George M.D. 04/15/2017 3:22 PM Dictated Date/Time: 04/15/2017 3:16 PM
--- NOTE | 2017-04-19 17:53 | CODING QUERY MEDICAL NECESSITY ---
SUPPORTING DIAGNOSIS NEEDED A supporting diagnosis is required for the test/procedure performed on this patient in order for us to be reimbursed by the patient's insurance. Please provide a supporting diagnosis for the following test/procedure listed below next to the test name along with your signature. *If there is no additional diagnosis for this patient that would support the following test/procedure please document that below next to the test/procedure. Test(s)/Procedure(s) that require a supporting diagnosis: * US VENOUS UNIL LWR EXT DOPPLER DIAGNOSIS: Provider Signature: Date: Thank you Isabell Parkinson [employer] Information Management Once completed, please kindly fax back to [phone] For questions please call [phone]
== END | disposition home or self-care (01) ==
LOC: C.ULTR 14:00
PROVIDERS: ATTEND Student in an Organized Health Care Education/Training Program
DX: M79.89 Other specified soft tissue disorders (principal)

== ENCOUNTER → 2017-08-16 | Outpatient (CLI) | payer OTHER ==
--- NOTE | 2017-08-16 11:42 | DIAGNOSTIC IMAGING REPORT ---
RENAL ULTRASOUND HISTORY: URGE INCONTINENCE COMPARISON: Abdomen and pelvis CT 04/23/2013. FINDINGS: Right kidney: 12.5 cm. No hydronephrosis. Normal corticomedullary differentiation and cortical thickness for age. A few cysts with the largest measuring 1.9 cm in the lower pole. Left kidney: 11.8 cm. No hydronephrosis. Normal corticomedullary differentiation and cortical thickness for age. A few small cysts with the largest measuring 1.8 cm. Bladder: Under distended and not well visualized. IMPRESSION: 1 No hydronephrosis. 2. Bladder is underdistended and not well visualized. 3. Small bilateral renal cysts. Electronically signed by: David Bay M.D. 08/16/2017 11:40 AM Dictated Date/Time: 08/16/2017 11:36 AM
== END | disposition home or self-care (01) ==
LOC: C.ULTR 11:01
PROVIDERS: ATTEND Family Medicine
DX: R31.29 Other microscopic hematuria (principal); N39.41 Urge incontinence; R91.8 Other nonspecific abnormal finding of lung field; N28.1 Cyst of kidney, acquired

== ENCOUNTER 2017-10-28 11:10 | Inpatient (IN) | payer OTHER ==
[~2017-10-28] VITALS: Ht 167.6 cm; Wt 104.8 kg
[2017-10-28] MEDS ORDERED: ALBUT/IPRATROP 3MG/0.5MG NEB 3 ML VIAL INH STA (11:35)
[2017-10-28 11:44] LABS: BASO % 0.3 %; BASO ABS # 0.02 K/uL (0-0.2); EOS % 1.2 %; EOS ABS # 0.08 K/uL (0-0.5); HEMATOCRIT 40.4 % (37-47); HEMOGLOBIN 12.9 g/dL (12.0-16.0); IG# 0.02 K/uL (0.00-0.02); LYMPH ABS # 1.87 K/uL (1.2-3.4); MEAN CELL VOLUME 85.1 fL (80-100); MEAN CORPUSCULAR HEMOGLOBIN 27.2 pg (25-34); MEAN CORPUSCULAR HGB CONC 31.9 g/dl (32-36); MEAN PLATELET VOLUME 10.6 fL (7.4-10.4); MONO % 8.5 %; MONO ABS # 0.59 K/uL (0.11-0.59); NEUT % 62.7 %; NEUT ABS # 4.34 K/uL (1.4-6.5); PLATELET COUNT 222 K/uL (130-400); RED CELL DISTRIBUTION WIDTH CV 15.3 % (11.5-14.5); RED CELL DISTRIBUTION WIDTH SD 47.3 fL (36.4-46.3); WHITE BLOOD COUNT 6.92 K/uL (4.8-10.8)
[2017-10-28] MEDS ORDERED: METO50TA8 PO (11:47)
[2017-10-28] MEDS ORDERED: OXAP600T PO (11:47)
[2017-10-28 11:59] LABS: ALBUMIN 3.6 gm/dl (3.4-5.0); ALT/SGPT 21 U/L (12-78); AST/SGOT 16 U/L (15-37); BLOOD UREA NITROGEN 15 mg/dl (7-18); CALCIUM 8.8 mg/dl (8.5-10.1); CARBON DIOXIDE 24 mmol/L (21-32); CREATININE 0.98 mg/dl (0.60-1.20); GLUCOSE 114 mg/dl (70-99); LIPASE 167 U/L (73-393); POTASSIUM 3.5 mmol/L (3.5-5.1); SODIUM 142 mmol/L (136-145)
[2017-10-28 12:04] LABS: ALKALINE PHOSPHATASE 71 U/L (45-117); TOTAL PROTEIN 7.8 gm/dl (6.4-8.2)
--- NOTE | 2017-10-28 12:04 | EMERGENCY ROOM VISIT NOTE ---
History Report prepared by Bonny: Vickie Sosa Under the Supervision of: Dr. Camden Iqbal M.D. First contact with patient: 11:29 Chief Complaint: SHORTNESS OF BREATH Stated Complaint: RESPIRATORY Nursing Triage Summary: patient with sudden onset of shortness of breath started last night. increasingly worse with inability to tolerated walking or dressing. room air saturation 88% History of Present Illness The patient is a 72 year old female who presents to the Emergency Room with complaints of sudden shortness of breath beginning last night. The patient wears a CPAP machine at night. She states her CPAP machine woke her up because it "smelled funny". The patient reports she slept the remainder of the night without her CPAP machine. On arrival the patient's, oxygen saturation on room air was 88 percent. EMS gave the patient 125 mg of Solu-Medrol and one DuoNeb treatment. The patient states she feels much better after the DuoNeb treatment. The patient has a history of hypertension. The patient denies any hemoptysis but she notes coughing up some mucus with a blood tinge. The patient denies any recent travel. She got a flu shot this year. Source of History: patient Onset: last night Position: other (generalized) Quality: other (shortness of breath) Timing: other (sudden) Associated Symptoms: + cough, + SOB Review of Systems See HPI for pertinent positives and negatives. A total of ten systems were reviewed and were otherwise negative. 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 (12) Osteoarthros Nos-Unspec (13) Sepsis Family History Diabetes mellitus Social History Smoking Status: Former Smoker Alcohol Use: occasionally Drug Use: none Housing Status: lives alone Current/Historical Medications Scheduled Cholecalciferol (Vitamin D3), 2,000 INTUNIT PO QAM Clonidine Hcl (Catapres), 0.1 MG PO QAM Magnesium Chloride (Slow-Mag Tab), 64 MG PO QDB Metoprolol Succ (Toprol Xl) (Toprol-Xl), 50 MG PO BID Oxaprozin (Daypro), 600 MG PO BID Paroxetine (Paxil), 20 MG PO QAM Polyethylene Glycol 3350 (Bulk (Polyethylene Glycol 3350), 17 GM PO QAM Allergies Coded Allergies: Pineapple (Verified Allergy, Severe, RAW PINEAPPLE-BURNING FACE, TIGHTNESS IN THROAT, 10/28/17) Statins (Verified Adverse Reaction, Intermediate, MUSCLE ACHING, 10/28/17) HMG-CoA-R Inhibitors (Verified Adverse Reaction, Mild, STATINS- MUSCLE ACHES, 10/28/17) Amlodipine (Verified Adverse Reaction, Unknown, BRADYCARDIA, 10/28/17) Amoxicillin (Verified Adverse Reaction, Unknown, nausea, 10/28/17) Ascorbate (Verified Adverse Reaction, Unknown, heart pounds, tachy and headache, 10/28/17) Aspirin (Verified Adverse Reaction, Unknown, upset stomach, 10/28/17) Beta-Carotene (Verified Adverse Reaction, Unknown, heart pounds, tachy and headache, 10/28/17) Cholecalciferol (Verified Adverse Reaction, Unknown, heart pounds, tachy and headache, 10/28/17) Clavulanic Acid (Verified Adverse Reaction, Unknown, nausea, 10/28/17) Cupric Oxide (Verified Adverse Reaction, Unknown, heart pounds, tachy and headache, 10/28/17) Diclofenac (Verified Adverse Reaction, Unknown, wobbly, 10/28/17) Docosahexaenoic Acid (DHA) (Verified Adverse Reaction, Unknown, heart pounds, tachy and headache, 10/28/17) Eicosapentaenoic Acid (EPA) (Verified Adverse Reaction, Unknown, heart pounds, tachy and headache, 10/28/17) Ezetimibe (Verified Adverse Reaction, Unknown, chills, myalgia, 10/28/17) Ferrous Bisglycinate (Verified Adverse Reaction, Unknown, heart pounds, tachy and headache, 10/28/17) Folic Acid (Verified Adverse Reaction, Unknown, heart pounds, tachy and headache, 10/28/17) Gemfibrozil (Verified Adverse Reaction, Unknown, EXTREME FATIGUE, 10/28/17) Hydrocodone (Verified Adverse Reaction, Unknown, decreased urine output, ) Iron (Verified Adverse Reaction, Unknown, heart pounds, tachy and headache , 10/28/17) Magnesium Oxide (Verified Adverse Reaction, Unknown, heart pounds, tachy and headache, 10/28/17) Olmesartan (Verified Adverse Reaction, Unknown, cough, fatigue, 10/28/17) POLLEN (Verified Adverse Reaction, Unknown, nasal congestion, 10/28/17) Pyridoxine (Verified Adverse Reaction, Unknown, heart pounds, tachy and headache, 10/28/17) Riboflavin (Verified Adverse Reaction, Unknown, heart pounds, tachy and headache, 10/28/17) Sodium Benzoate (Verified Adverse Reaction, Unknown, heart pounds, tachy and headache, 10/28/17) Telmisartan (Verified Adverse Reaction, Unknown, flu-like symptoms, ) Thiamine (Verified Adverse Reaction, Unknown, heart pounds, tachy and headache, 10/28/17) Varenicline (Verified Adverse Reaction, Unknown, headache, nausea and vivid dreams, 10/28/17) Vitamin B12 (Verified Adverse Reaction, Unknown, heart pounds, tachy and headache, 10/28/17) Vitamin E (Verified Adverse Reaction, Unknown, heart pounds, tachy and headache, 10/28/17) Zinc Oxide (Verified Adverse Reaction, Unknown, heart pounds, tachy and headache, 10/28/17) Physical Exam Vital Signs Date Time Temp Pulse Resp B/P (MAP) Pulse Ox O2 Delivery O2 Flow Rate FiO2 10/28/17 16:27 73 22 171/116 94 10/28/17 16:22 76 10/28/17 14:28 70 20 167/91 96 Nasal Cannula 2.0 10/28/17 12:55 75 20 159/88 96 Nasal Cannula 2.0 10/28/17 12:21 69 10/28/17 12:20 87 Room Air 10/28/17 11:24 95 Nasal Cannula 2.0 10/28/17 11:24 95 Nasal Cannula 2.0 10/28/17 11:18 36.4 74 32 212/129 88 Room Air 10/28/17 11:18 88 Room Air Nasal Cannula Physical Exam Physical Exam GENERAL: She is oriented to person, place, and time. She appears well- developed and well-nourished. She does not appear distressed. ____ HENT: Exam performed. Head: Normocephalic and atraumatic. Right Ear: External ear normal. No mastoid tenderness. Left Ear: External ear normal. No mastoid tenderness. Mouth/Throat: The oropharynx is clear and moist. No trismus in the jaw. No dental abscesses or uvula swelling. No oropharyngeal exudate or tonsillar abscesses. ____ EYES: Conjunctivae and EOM are normal. Pupils are equal, round, and reactive to light. Right eye exhibits no discharge. Left eye exhibits no discharge. No scleral icterus. ____ NECK: Normal range of motion. Neck supple. No JVD present. No spinous process tenderness present. No carotid bruit present. No rigidity. No tracheal deviation and normal range of motion present. No Brudzinski's sign and no Kernig 's sign noted. ____ CV: Normal rate, regular rhythm, normal heart sounds and intact distal pulses. There is no peripheral edema. Palpable radial pulses bue. ____ PULM/CHEST: Diminished breath sounds at bilateral bases, inspiratory rales at bases, scattered expiratory wheezes diffusely at bases. Chest Wall: She exhibits no tenderness. ____ ABD: The abdomen is soft. Bowel sounds are normal. She has no distension. No mass is present. There is no tenderness. There is no rebound, no guarding, no Snell's sign and no tenderness at McBurney's point. Rovsig negative MUSC/SKEL: Normal range of motion. There is no peripheral edema, tenderness or deformity. LYMPH: No cervical adenopathy. ____ NEURO: She is alert and oriented to person, place, and time. She has normal strength. No cranial nerve deficit or sensory deficit. Coordination and gait normal. GCS eye subscore is 4. GCS verbal subscore is 5. GCS motor subscore is 6. Cerebellar tests wnl. ____ SKIN: Skin is warm and dry. She is not diaphoretic. ____ PSYCH: SHe has a normal mood and affect. Her behavior is normal. Judgment and thought content normal. ____ Medical Decision & Procedures ER Provider Diagnostic Interpretation: Radiology results as stated below per my review and radiologist interpretation: CHEST 2 VIEWS ROUTINE FINDINGS: The heart is enlarged. There is mild elevation of the interstitium, likely secondary to mild pulmonary vascular congestion. There is no lobar consolidation. Increased markings the lung bases are likely atelectatic. There is minor blunting of the posterior costophrenic angles.[ IMPRESSION: Cardiomegaly and elevation of the interstitium, likely secondary to mild pulmonary vascular congestion. Bibasilar opacities, likely atelectatic. Clinical and radiographic follow-up is recommended Electronically signed by: Bill Campbell M.D. CT ANGIOGRAM OF THE CHEST FINDINGS: r there is a stable 14 mm hypodensity within the right lobe of the liver laterally. There is a minimally enlarging 22 mm hypodensity within the left lobe. This approaches water attenuation likely represent a cyst. Mediastinal lymph nodes are the upper limits of normal in size. There was no evidence of thoracic aortic dilatation. There were no pulmonary artery filling defects to indicate acute pulmonary embolism. There are small bilateral pleural effusions right greater than left There are bibasal airspace opacities likely atelectatic. There is interlobular septal edema consistent with congestive failure. There is right middle lobe atelectasis with mild bronchiectasis. There is mild underlying emphysema. There are moderate degenerative changes present within the spine IMPRESSION: 1. No evidence of acute pulmonary embolism 2. Congestive failure with interlobular septal edema and small bilateral pleural effusions. 3. Scattered areas of presumed atelectasis. 4. Mild emphysema Electronically signed by: Bill Campbell M.D. Laboratory Results 10/28/17 11:33 Red Blood Count 4.75, Mean Corpuscular Volume 85.1, Mean Corpuscular Hemoglobin 27.2, Mean Corpuscular Hemoglobin Concent 31.9, Mean Platelet Volume 10.6, Neutrophils (%) (Auto) 62.7, Lymphocytes (%) (Auto) 27.0, Monocytes (%) (Auto) 8.5, Eosinophils (%) (Auto) 1.2, Basophils (%) (Auto) 0.3, Neutrophils # (Auto) 4.34, Lymphocytes # (Auto) 1.87, Monocytes # (Auto) 0.59, Eosinophils # (Auto) 0.08, Basophils # (Auto) 0.02 10/28/17 11:33 Test 10/28/17 11:33 10/28/17 11:50 10/28/17 12:33 White Blood Count 6.92 K/uL (4.8-10.8) Red Blood Count 4.75 M/uL (4.2-5.4) Hemoglobin 12.9 g/dL (12.0-16.0) Hematocrit 40.4 % (37-47) Mean Corpuscular Volume 85.1 fL (80-100) Mean Corpuscular Hemoglobin 27.2 pg (25-34) Mean Corpuscular Hemoglobin Concent 31.9 g/dl (32-36) Platelet Count 222 K/uL (130-400) Mean Platelet Volume 10.6 fL (7.4-10.4) Neutrophils (%) (Auto) 62.7 % Lymphocytes (%) (Auto) 27.0 % Monocytes (%) (Auto) 8.5 % Eosinophils (%) (Auto) 1.2 % Basophils (%) (Auto) 0.3 % Neutrophils # (Auto) 4.34 K/uL (1.4-6.5) Lymphocytes # (Auto) 1.87 K/uL (1.2-3.4) Monocytes # (Auto) 0.59 K/uL (0.11-0.59) Eosinophils # (Auto) 0.08 K/uL (0-0.5) Basophils # (Auto) 0.02 K/uL (0-0.2) RDW Standard Deviation 47.3 fL (36.4-46.3) RDW Coefficient of Variation 15.3 % (11.5-14.5) Immature Granulocyte % (Auto) 0.3 % Immature Granulocyte # (Auto) 0.02 K/uL (0.00-0.02) Prothrombin Time 10.5 SECONDS (9.0-12.0) Prothromb Time International Ratio 1.0 (0.9-1.1) Anion Gap 12.0 mmol/L (3-11) Est Creatinine Clear Calc Drug Dose 65.4 ml/min Estimated GFR () 67.7 Estimated GFR (Non- 58.4 BUN/Creatinine Ratio 15.7 (10-20) Calcium Level 8.8 mg/dl (8.5-10.1) Total Bilirubin 0.6 mg/dl (0.2-1) Direct Bilirubin 0.1 mg/dl (0-0.2) Aspartate Amino Transf (AST/SGOT) 16 U/L (15-37) Alanine Aminotransferase (ALT/SGPT) 21 U/L (12-78) Alkaline Phosphatase 71 U/L (45-117) Troponin I < 0.015 ng/ml (0-0.045) Pro-B-Type Natriuretic Peptide 2824 pg/ml (0-900) Total Protein 7.8 gm/dl (6.4-8.2) Albumin 3.6 gm/dl (3.4-5.0) Lipase 167 U/L (73-393) Influenza Type A Antigen Neg for Influ A (NEG) Influenza Type B Antigen Neg for Influ B (NEG) Venous Blood pH 7.38 (7.36-7.41) Venous Blood Partial Pressure CO2 50 mmHg (38.0-50.0) Venous Blood Partial Pressure O2 28 mmHg Venous Blood HCO3 29 mmol/L Venous Blood Oxygen Saturation < 60.0 % Venous Blood Base Excess 2.8 mEq/L Lactic Acid Level 1.5 mmol/L (0.4-2.0) Laboratory results reviewed by me Medications Administered Medications (Trade) Dose Ordered Sig/David Route Start Time Stop Time Status Last Admin Dose Admin Albuterol/ Ipratropium (Duoneb) 3 ml NOW STAT INH 10/28/17 11:35 10/28/17 11:37 DC 10/28/17 12:03 3 ML Furosemide (Lasix Inj) 40 mg NOW STAT IV 10/28/17 14:30 10/28/17 14:31 DC 10/28/17 14:38 40 MG ECG Per My Interpretation Indication: SOB/dyspnea Rate (beats per minute): 71 Rhythm: sinus rhythm Findings: other (LVH, MN,QRS, QTC within normal limits, no ST elevation or ST depression) ED Course 1129: The patient was evaluated in room B11B. A complete history and physical exam was performed. 1135: Ordered Duoneb 3 ml INH. 1322: After repeat breathing treatment the patient is feeling better. The patient is breathing on room air without difficulty. On repeat lung exam the patient has rales on bilateral bases but no wheezing. EMR review revealed the patient had an echo on February 18, 2017 which showed a ejection fraction of 70% and concentric left ventricular hypertrophy. 1424: Labs within normal limits with the exception of mildly elevated proBNP level. CTA chest did not show acute PE, did show cardiomegaly with pleural effusion consistent with CHF exacerbation. Discussed the patient's case with Dr. Jarvis Hartman. The patient will be evaluated for further treatment and disposition. Ordered Lasix Inj 40 mg IV. Medical Decision 1424: Labs within normal limits with the exception of mildly elevated proBNP level. CTA chest did not show acute PE, did show cardiomegaly with pleural effusion consistent with CHF exacerbation. Discussed the patient's case with Dr. Jarvis Hartman. The patient will be evaluated for further treatment and disposition. Ordered Lasix Inj 40 mg IV. After repeat breathing treatment the patient is feeling better. The patient is breathing on room air without difficulty. On repeat lung exam the patient has rales on bilateral bases but no wheezing. EMR review revealed the patient had an echo on February 18, 2017 which showed a ejection fraction of 70% and concentric left ventricular hypertrophy. Medication Reconcilliation Current Medication List: was personally reviewed by me Blood Pressure Screening Patient's blood pressure: Elevated blood pressure Blood pressure disposition: Referred to PCP (referred to hospitalist) Consults Time Called: 1420 Consulting Physician: Dr. Jarvis Hartman Returned Call: 1424 Discussed the patient's case with Dr. Jarvis Hartman. The patient will be evaluated for further treatment and disposition. Impression Primary Impression: Hypoxia Additional Impressions: COPD exacerbation CHF exacerbation Scribe Attestation The scribe's documentation has been prepared under my direction and personally reviewed by me in its entirety. I confirm that the note above accurately reflects all work, treatment, procedures, and medical decision making performed by me. The chart was completed utilizing [employer] Speech voice recognition software. Grammatical errors, random word insertions, pronoun errors, and incomplete sentences are an occasional consequence of this system due to software limitations, ambient noise, and hardware issues. Any formal questions or concerns about the content, text, or information contained within the body of this dictation should be directly addressed to the physician for clarification. Departure Information Dispostion Being Evaluated By Hospitalist Referrals Finesse Newell M.D. (PCP) Patient Instructions My [facility] Problem Qualifiers Additional Impressions: CHF exacerbation Heart failure type: unspecified Qualified Codes: I50.9 - Heart failure, unspecified
[2017-10-28 12:39] LABS: INFLUENZA B ANTIGEN Neg for Influ B (NEG)
--- NOTE | 2017-10-28 13:08 | DIAGNOSTIC IMAGING REPORT ---
CHEST 2 VIEWS ROUTINE CLINICAL HISTORY: sob wheezing COMPARISON STUDY: 02/21/2017 FINDINGS: The heart is enlarged. There is mild elevation of the interstitium, likely secondary to mild pulmonary vascular congestion. There is no lobar consolidation. Increased markings the lung bases are likely atelectatic. There is minor blunting of the posterior costophrenic angles.[ IMPRESSION: Cardiomegaly and elevation of the interstitium, likely secondary to mild pulmonary vascular congestion. Bibasilar opacities, likely atelectatic. Clinical and radiographic follow-up is recommended Electronically signed by: Bill Campbell M.D. 10/28/2017 1:06 PM Dictated Date/Time: 10/28/2017 1:05 PM
[2017-10-28] MEDS ORDERED: OPTIRAY 320 IV PRN (13:30)
--- NOTE | 2017-10-28 13:58 | DIAGNOSTIC IMAGING REPORT ---
CT ANGIOGRAM OF THE CHEST CLINICAL HISTORY: Shortness of breath. Wheezing. Possible pulmonary embolism. COMPARISON STUDY: 11/18/2011 TECHNIQUE: Following the IV administration of mL of Optiray-320, CT angiogram of the thorax was performed from the thoracic inlet to the lung bases utilizing the pulmonary embolus protocol. Images are reviewed in the axial, sagittal, and coronal planes. IV contrast was administered without complication. MIP imaging was performed. A dose lowering technique was utilized adhering to the principles of ALARA. CT DOSE: 571.26 mGy.cm FINDINGS: r there is a stable 14 mm hypodensity within the right lobe of the liver laterally. There is a minimally enlarging 22 mm hypodensity within the left lobe. This approaches water attenuation likely represent a cyst. Mediastinal lymph nodes are the upper limits of normal in size. There was no evidence of thoracic aortic dilatation. There were no pulmonary artery filling defects to indicate acute pulmonary embolism. There are small bilateral pleural effusions right greater than left There are bibasal airspace opacities likely atelectatic. There is interlobular septal edema consistent with congestive failure. There is right middle lobe atelectasis with mild bronchiectasis. There is mild underlying emphysema. There are moderate degenerative changes present within the spine IMPRESSION: 1. No evidence of acute pulmonary embolism 2. Congestive failure with interlobular septal edema and small bilateral pleural effusions. 3. Scattered areas of presumed atelectasis. 4. Mild emphysema Electronically signed by: Bill Campbell M.D. 10/28/2017 1:56 PM Dictated Date/Time: 10/28/2017 1:51 PM
[2017-10-28] MEDS ORDERED: FUROSEMIDE 40 MG/4 ML VIAL IV STA (14:30)
[2017-10-28] MEDS ORDERED: ACETAMINOPHEN 325 MG TAB PO PRN (16:45)
[2017-10-28] MEDS ORDERED: ZOLPIDEM TARTRATE 5 MG TAB PO PRN ×2 (16:45)
[2017-10-28] MEDS ORDERED: ALUMINUM/MAGNESIUM/SIMETH (MAALOX MAX) 30 ML UDC PO PRN (16:45)
[2017-10-28] MEDS ORDERED: HydrALAZINE HCL 20 MG/ML VIAL IV. PRN (16:45)
[2017-10-28] MEDS ORDERED: NITROGLYCERIN 0.4 MG SL PER TAB CHARGE SL PRN (16:45)
[2017-10-28] MEDS ORDERED: VALSARTAN 80 MG TAB PO STA (17:05)
[2017-10-28] MEDS ORDERED: NITROGLYCERIN 0.4 MG/HR PATCH EXT STA (17:05)
--- NOTE | 2017-10-28 17:08 | History and Physical ---
History & Physical Date & Time of Service: Oct 28, 2017 at 16:57 Chief Complaint: Respiratory Primary Care Physician: Finesse Newell M.D. History of Present Illness Source: patient, family 72 years old female with past medical history of hypertension, dyslipidemia, obstructive sleep apnea on CPAP, history of breast cancer and atrial flutter in 2017. Patient said that her primary care physician mentioned that she might have mild emphysema and she does not take any treatment for that. For the last 3 months she has been having mild intermittent cough with some yellowish and whitish sputum. Last night she woke up at 4 AM with severe shortness of breath. She tried to go to the bathroom but she could not make it to the bathroom due to the shortness of breath, she had an episode of incontinence. Denies any chest pain or fever. Patient does have dyslipidemia but she is off statin as she developed muscle aches. She also have hypertension, she was placed on olmesartan and she could not tolerate it due to flulike symptoms, no anaphylactic shock or any serious side effects. Currently she is on metoprolol and clonidine for her pressure. In the ED her pressure was noticed to be 195/111 while I was on bedside. Her oxygen saturation on arrival was 87 on room air. Family History Diabetes mellitus Social History Smoking Status: Former Smoker Drug Use: none Housing status: lives with family Immunizations History of Influenza Vaccine: Yes History of Tetanus Vaccine?: UTD History of Pneumococcal: Yes History of Hepatitis B Vaccine: Yes Allergies Coded Allergies: Pineapple (Verified Allergy, Severe, RAW PINEAPPLE-BURNING FACE, TIGHTNESS IN THROAT, 10/28/17) Statins (Verified Adverse Reaction, Intermediate, MUSCLE ACHING, 10/28/17) HMG-CoA-R Inhibitors (Verified Adverse Reaction, Mild, STATINS- MUSCLE ACHES, 10/28/17) Amlodipine (Verified Adverse Reaction, Unknown, BRADYCARDIA, 10/28/17) Amoxicillin (Verified Adverse Reaction, Unknown, nausea, 10/28/17) Ascorbate (Verified Adverse Reaction, Unknown, heart pounds, tachy and headache, 10/28/17) Aspirin (Verified Adverse Reaction, Unknown, upset stomach, 10/28/17) Beta-Carotene (Verified Adverse Reaction, Unknown, heart pounds, tachy and headache, 10/28/17) Cholecalciferol (Verified Adverse Reaction, Unknown, heart pounds, tachy and headache, 10/28/17) Clavulanic Acid (Verified Adverse Reaction, Unknown, nausea, 10/28/17) Cupric Oxide (Verified Adverse Reaction, Unknown, heart pounds, tachy and headache, 10/28/17) Diclofenac (Verified Adverse Reaction, Unknown, wobbly, 10/28/17) Docosahexaenoic Acid (DHA) (Verified Adverse Reaction, Unknown, heart pounds, tachy and headache, 10/28/17) Eicosapentaenoic Acid (EPA) (Verified Adverse Reaction, Unknown, heart pounds, tachy and headache, 10/28/17) Ezetimibe (Verified Adverse Reaction, Unknown, chills, myalgia, 10/28/17) Ferrous Bisglycinate (Verified Adverse Reaction, Unknown, heart pounds, tachy and headache, 10/28/17) Folic Acid (Verified Adverse Reaction, Unknown, heart pounds, tachy and headache, 10/28/17) Gemfibrozil (Verified Adverse Reaction, Unknown, EXTREME FATIGUE, 10/28/17) Hydrocodone (Verified Adverse Reaction, Unknown, decreased urine output, ) Iron (Verified Adverse Reaction, Unknown, heart pounds, tachy and headache , 10/28/17) Magnesium Oxide (Verified Adverse Reaction, Unknown, heart pounds, tachy and headache, 10/28/17) Olmesartan (Verified Adverse Reaction, Unknown, cough, fatigue, 10/28/17) POLLEN (Verified Adverse Reaction, Unknown, nasal congestion, 10/28/17) Pyridoxine (Verified Adverse Reaction, Unknown, heart pounds, tachy and headache, 10/28/17) Riboflavin (Verified Adverse Reaction, Unknown, heart pounds, tachy and headache, 10/28/17) Sodium Benzoate (Verified Adverse Reaction, Unknown, heart pounds, tachy and headache, 10/28/17) Telmisartan (Verified Adverse Reaction, Unknown, flu-like symptoms, ) Thiamine (Verified Adverse Reaction, Unknown, heart pounds, tachy and headache, 10/28/17) Varenicline (Verified Adverse Reaction, Unknown, headache, nausea and vivid dreams, 10/28/17) Vitamin B12 (Verified Adverse Reaction, Unknown, heart pounds, tachy and headache, 10/28/17) Vitamin E (Verified Adverse Reaction, Unknown, heart pounds, tachy and headache, 10/28/17) Zinc Oxide (Verified Adverse Reaction, Unknown, heart pounds, tachy and headache, 10/28/17) Home Medications Scheduled Cholecalciferol (Vitamin D3), 2,000 INTUNIT PO QAM Clonidine Hcl (Catapres), 0.1 MG PO QAM Magnesium Chloride (Slow-Mag Tab), 64 MG PO QDB Metoprolol Succ (Toprol Xl) (Toprol-Xl), 50 MG PO BID Oxaprozin (Daypro), 600 MG PO BID Paroxetine (Paxil), 20 MG PO QAM Polyethylene Glycol 3350 (Bulk (Polyethylene Glycol 3350), 17 GM PO QAM Review of Systems Review of system Constitutional: No fever / no chills / no sweats /positive for weakness and fatigue Eyes: no blurring of vision / no eye pain / no discharge / no redness ENT: no hearing loss / no epistaxis /no swallowing problems Respiratory: Chronic productive cough, significant shortness of breath Cardiovascular: no Chest pain / no lower extremity edema / no palpitation Abdomen: no pain / no nausea / no vomiting / no constipation Musculoskeletal: no joint pain / no muscle pain / no joint swelling Genitourinary: no dysuria / no incontinence / no urinary retention Neurologic: no focal weakness / no numbness/tingling / no ataxia Psychiatric: no depression symptoms / no anxiety / no insomnia Endocrine: no excessive thirst / no excessive urination Hematologic: no abnormal bleeding / no bruising / no LN swelling Skin: No rash / no pallor Physical Exam Vital Signs Date Time Temp Pulse Resp B/P (MAP) Pulse Ox O2 Delivery O2 Flow Rate FiO2 10/28/17 16:27 73 22 171/116 94 10/28/17 16:22 76 10/28/17 14:28 70 20 167/91 96 Nasal Cannula 2.0 10/28/17 12:55 75 20 159/88 96 Nasal Cannula 2.0 10/28/17 12:21 69 10/28/17 12:20 87 Room Air 10/28/17 11:24 95 Nasal Cannula 2.0 10/28/17 11:24 95 Nasal Cannula 2.0 10/28/17 11:18 36.4 74 32 212/129 88 Room Air 10/28/17 11:18 88 Room Air Nasal Cannula Physical examination General patient appears to be comfortable, not in acute distress HEENT: Atraumatic , normocephalic /no jaundice /no pallor /anicteric /no dry mucous membrane /normal external ear inspection Neck: Supple /no swelling /central trach Heart: S1/S2 normal/regular rate and rhythm/no gallop /no rub /no murmur Lungs: Currently not in severe respiratory distress, does not use accessory muscles of respiration, bilateral basal rales, no wheezing Abdomen: Soft/nontender/no guarding/no rebound/no organomegaly/no pulsatile mass Musculoskeletal: No swelling/no edema/no tenderness/normal range of motion Neuro exam: Awake alert oriented 3/cranial nerves II through XII appear to be intact/sensation intact/moves all extremities/no abnormal movements Psychiatric evaluation: No depressed mood/normal affect Skin: No rash on exposed skin area/no erythema Extremity: Normal pulse/no pitting edema/no clubbing or cyanosis Endocrine/lymphatic: No obvious lymphadenopathy /no lymphedema Diagnostics Laboratory Results Results Past 24 Hours Test 10/28/17 11:33 10/28/17 11:50 10/28/17 12:33 10/28/17 16:42 Range/Units White Blood Count 6.92 4.8-10.8 K/uL Red Blood Count 4.75 4.2-5.4 M/uL Hemoglobin 12.9 12.0-16.0 g/dL Hematocrit 40.4 37-47 % Mean Corpuscular Volume 85.1 80-100 fL Mean Corpuscular Hemoglobin 27.2 25-34 pg Mean Corpuscular Hemoglobin Concent 31.9 32-36 g/dl Platelet Count 222 130-400 K/uL Mean Platelet Volume 10.6 7.4-10.4 fL Neutrophils (%) (Auto) 62.7 % Lymphocytes (%) (Auto) 27.0 % Monocytes (%) (Auto) 8.5 % Eosinophils (%) (Auto) 1.2 % Basophils (%) (Auto) 0.3 % Neutrophils # (Auto) 4.34 1.4-6.5 K/uL Lymphocytes # (Auto) 1.87 1.2-3.4 K/uL Monocytes # (Auto) 0.59 0.11-0.59 K/uL Eosinophils # (Auto) 0.08 0-0.5 K/uL Basophils # (Auto) 0.02 0-0.2 K/uL RDW Standard Deviation 47.3 36.4-46.3 fL RDW Coefficient of Variation 15.3 11.5-14.5 % Immature Granulocyte % (Auto) 0.3 % Immature Granulocyte # (Auto) 0.02 0.00-0.02 K/uL Sodium Level 142 136-145 mmol/L Potassium Level 3.5 3.5-5.1 mmol/L Chloride Level 106 98-107 mmol/L Carbon Dioxide Level 24 21-32 mmol/L Anion Gap 12.0 3-11 mmol/L Blood Urea Nitrogen 15 7-18 mg/dl Creatinine 0.98 0.60-1.20 mg/dl Est Creatinine Clear Calc Drug Dose 65.4 ml/min Estimated GFR () 67.7 Estimated GFR (Non- 58.4 BUN/Creatinine Ratio 15.7 10-20 Random Glucose 114 70-99 mg/dl Calcium Level 8.8 8.5-10.1 mg/dl Total Bilirubin 0.6 0.2-1 mg/dl Direct Bilirubin 0.1 0-0.2 mg/dl Aspartate Amino Transf (AST/SGOT) 16 15-37 U/L Alanine Aminotransferase (ALT/SGPT) 21 12-78 U/L Alkaline Phosphatase 71 45-117 U/L Troponin I < 0.015 0-0.045 ng/ml Pro-B-Type Natriuretic Peptide 2824 0-900 pg/ml Total Protein 7.8 6.4-8.2 gm/dl Albumin 3.6 3.4-5.0 gm/dl Lipase 167 73-393 U/L Influenza Type A Antigen Neg for Influ A NEG Influenza Type B Antigen Neg for Influ B NEG Venous Blood pH 7.38 7.36-7.41 Venous Blood Partial Pressure CO2 50 38.0-50.0 mmHg Venous Blood Partial Pressure O2 28 mmHg Venous Blood HCO3 29 mmol/L Venous Blood Oxygen Saturation < 60.0 % Venous Blood Base Excess 2.8 mEq/L Lactic Acid Level 1.5 0.4-2.0 mmol/L Impression Assessment and Plan 72 years old female with past medical history of hypertension, dyslipidemia, obstructive sleep apnea on CPAP, history of breast cancer and atrial flutter in 2017. 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 Will switch clonidine to twice a day We will also add Diovan, patient did not have any life-threatening reaction to mason inhibitors/AArbs obtain serial cardiac enz NTG SL/topical prn cp consult cash application representative pain management repeat EKG prn chest pain Check hemoglobin A1c/lipids to stratify patient risk factors I/Os 2Decho i last echo was in February 2017n am, with normal ejection fraction gentle diuresis control blood pressure, afterload and preload Patient will discuss with her cash application representative using loop monitor to decide whether she needs anticoagulation or not DVT prophylaxis Resuscitation Status VTE Prophylaxis Will order VTE Prophylaxis: Yes
[2017-10-28 18:23] VITALS: BP 169/96; PULSE 78; TEMP 36.5; O2SAT 92; Ht 167.6 cm; Wt 104.8 kg
[2017-10-28] MEDS ORDERED: FUROSEMIDE INJ 20 MG in SYRINGE 0 ML IV SCH (18:30)
[2017-10-28 20:00] VITALS: O2SAT 92
[2017-10-28 20:13] VITALS: BP 166/98; PULSE 78; TEMP 36.7; O2SAT 92
[2017-10-28] MEDS: CLONIDINE HCL 0.1 MG TAB PO SCH (20:25)
[2017-10-28] MEDS: POTASSIUM CHLORIDE 10 MEQ TABCR PO SCH (20:26)
[2017-10-28] MEDS: METOPROLOL SUCC 50MG EXT REL TAB PO SCH (20:27)
[2017-10-28] MEDS: HEPARIN SOD 5000 UNIT/0.5 ML CARP SQ SCH (20:30)
[2017-10-28] MEDS ORDERED: OXAPROZIN 600 MG TAB PO SCH (21:00)
[2017-10-29] VITALS (8 sets, daily range): BP systolic 128–178; BP diastolic 63–101; PULSE 60–77; TEMP 36.4–36.9; O2SAT 90–92
[2017-10-29 04:33] LABS: BASO % 0.2 %; BASO ABS # 0.01 K/uL (0-0.2); HEMATOCRIT 39.4 % (37-47); HEMOGLOBIN 12.1 g/dL (12.0-16.0); IG# 0.02 K/uL (0.00-0.02); LYMPH ABS # 1.18 K/uL (1.2-3.4); MEAN CELL VOLUME 84.2 fL (80-100); MEAN CORPUSCULAR HEMOGLOBIN 25.9 pg (25-34); MEAN CORPUSCULAR HGB CONC 30.7 g/dl (32-36); MEAN PLATELET VOLUME 10.9 fL (7.4-10.4); MONO % 6.4 %; MONO ABS # 0.42 K/uL (0.11-0.59); NEUT % 75.1 %; NEUT ABS # 4.94 K/uL (1.4-6.5); PLATELET COUNT 257 K/uL (130-400); RED CELL DISTRIBUTION WIDTH CV 15.5 % (11.5-14.5); RED CELL DISTRIBUTION WIDTH SD 46.9 fL (36.4-46.3); WHITE BLOOD COUNT 6.57 K/uL (4.8-10.8)
[2017-10-29] MEDS: HEPARIN SOD 5000 UNIT/0.5 ML CARP SQ SCH ×3 (04:39→21:00)
[2017-10-29 04:50] LABS: ALBUMIN 3.6 gm/dl (3.4-5.0); ALT/SGPT 18 U/L (12-78); AST/SGOT 12 U/L (15-37); CALCIUM 8.9 mg/dl (8.5-10.1); CARBON DIOXIDE 28 mmol/L (21-32); CHOLESTEROL 267 mg/dl (0-200); CREATININE 1.44 mg/dl (0.60-1.20); GLUCOSE 125 mg/dl (70-99); POTASSIUM 3.6 mmol/L (3.5-5.1); SODIUM 140 mmol/L (136-145)
[2017-10-29 04:53] LABS: ALKALINE PHOSPHATASE 65 U/L (45-117); LDL CHOLESTEROL CALCULATED 201 mg/dl; TOTAL PROTEIN 7.5 gm/dl (6.4-8.2)
[2017-10-29 04:54] LABS: BLOOD UREA NITROGEN 25 mg/dl (7-18)
[2017-10-29 07:53] LABS: HEMOGLOBIN A1C 5.6 % (4.5-5.6)
[2017-10-29] MEDS: MAGNESIUM CHLORIDE 64MG DELAYED REL TAB PO SCH (07:56)
[2017-10-29] MEDS: VALSARTAN 80 MG TAB PO SCH (07:57)
[2017-10-29] MEDS: METOPROLOL SUCC 50MG EXT REL TAB PO SCH ×2 (07:58→21:02)
[2017-10-29] MEDS: PAROXETINE 20 MG TAB PO SCH (07:59)
[2017-10-29] MEDS: NITROGLYCERIN 0.4 MG/HR PATCH TD SCH (07:59)
[2017-10-29] MEDS: POTASSIUM CHLORIDE 10 MEQ TABCR PO SCH ×2 (07:59→21:02)
[2017-10-29] MEDS: CLONIDINE HCL 0.1 MG TAB PO SCH ×2 (08:00→21:02)
[2017-10-29] MEDS: POLYETHYLENE (MIRALAX) 17 GM PACK PO PRN (08:07)
--- NOTE | 2017-10-29 08:37 | Clinical Documentation Query ---
CLINICAL DOCUMENTATION QUERY Dr. DICK, In your clinical opinion is this patient being managed for: ( x ) KAVON on CKD stage III ( ) Not Agree ( ) Other explanation of clinical findings (Please Explain) ( ) Unable to determine (Please Define) ( ) Need to Discuss The medical record reflects the following clinical findings, treatment, and risk factors. Clinical Indicators: 72 yo female presenting with acute diastolic CHF and acute respiratory failure. Initial Cr 0.98 which has trended up to Cr 1.44. Baseline GFR 41.5-58.4. Treatment: unable to administer fluids due to acute CHF, monitor PRP's, treat comorbid conditions, I/O, daily wts. Risk Factors: IV diuretic tx for acute CHF, age, A flutter, ANTHONY, HTN Please clarify and document your clinical opinion in the progress notes and discharge summary. Terms such as "probable", "suspected", "likely", "questionable", "possible", or "still to be ruled out" are acceptable. IF IN AGREEMENT, YOU MUST DOCUMENT ABOVE DIAGNOSTIC STATEMENT IN DAILY PROGRESS NOTES AND DISCHARGE SUMMARY. This document is not part of the patient's record. Thank You, Nikia Fowler, RN [phone]
[2017-10-29] MEDS ORDERED: CLONIDINE HCL 0.1 MG TAB PO SCH (09:00)
[2017-10-29] MEDS ORDERED: PERFLUTREN LIPID MICROSPHERE (DEFINITY) IV ONE (14:02)
--- NOTE | 2017-10-29 15:43 | Progress Note ---
Subjective Date of Service: Oct 29, 2017. Subjective Pt evaluation today including: conversation w/ patient, conversation w/ family , physical exam, chart review, lab review, review of studies, conversation w/ sediment remediation consultant, review of inpatient medication list No complaint, sitting up in chair, did not need oxygen, pleasant conversational no complaint Problem List Medical Problems: (1) Atrial flutter with rapid ventricular response Status: Acute (2) CHF exacerbation Status: Acute (3) COPD exacerbation Status: Acute (4) Hypoxia Status: Acute (5) Weakness Status: Acute Social History Problems: (1) S/P total knee arthroplasty Status: Acute Review of Systems Constitutional: + weakness, + fatigue, No fever, No chills, No sweats, No weight loss, No problem reported Eyes: No worsening of vision, No eye pain, No redness, No discharge, No diplopia ENT: No hearing loss, No unusual epistaxis, No nasal symptoms, No sore throat, No tinnitus, No dental problems, No trouble swallowing Respiratory: No cough, No sputum, No wheezing, No shortness of breath, No dyspnea on exertion, No dyspnea at rest, No hemoptysis Cardiac: No chest pain, No orthopnea, No PND, No edema, No claudication, No palpitations Abdomen: No pain, No nausea, No vomiting, No diarrhea, No constipation Musculoskeletal: No joint pain, No muscle pain, No swelling, No calf pain Female : No dysuria, No urinary frequency, No hematuria, No incontinence, No abnormal vaginal bleeding, No vaginal discharge Neurologic: No memory loss, No paralysis, No weakness, No numbness/tingling, No vertigo, No balance problems Psychiatric: No depression symptoms, No anhedonism, No anxiety, No insomnia, No substance abuse Heme: No abnormal bleeding/bruising, No clotting problems, No swollen lymph nodes, No night sweats Endo: No fatigue, No excessive thirst, No excessive urination Skin: No rash, No itch, No new/changing skin lesions, No color change, No bleeding Objective Vital Signs Date Time Temp Pulse Resp B/P (MAP) Pulse Ox O2 Delivery O2 Flow Rate FiO2 10/29/17 12:00 Room Air 10/29/17 11:56 36.4 67 18 152/76 (101) 92 Room Air 10/29/17 08:02 36.4 62 19 178/101 (126) 91 Room Air 10/29/17 08:00 Room Air 10/29/17 04:00 92 Room Air 10/29/17 04:00 36.6 68 17 128/74 (92) 90 Room Air 10/29/17 00:25 36.9 74 16 170/84 (112) 90 Room Air 10/29/17 00:05 92 Room Air 2.0 10/28/17 20:13 36.7 78 16 166/98 (120) 92 Room Air 10/28/17 20:00 92 Room Air 10/28/17 18:23 36.5 78 18 169/96 92 Room Air 10/28/17 17:22 70 14 178/100 94 10/28/17 16:27 73 22 171/116 94 10/28/17 16:22 76 Physical Exam General Appearance: WD/WN, no apparent distress, + obese Eyes: normal inspection, PERRL, EOMI, sclerae normal ENT: normal ENT inspection, hearing grossly normal, pharynx normal Neck: supple, no adenopathy, thyroid normal, no JVD, no carotid bruits, trachea midline Respiratory/Chest: chest non-tender, normal breath sounds, no respiratory distress, no accessory muscle use, + decreased breath sounds Cardiovascular: regular rate, rhythm, no gallop, no JVD, no murmur, + pertinent finding (Trace edema) Abdomen: normal bowel sounds, non tender, soft, no organomegaly, no pulsatile mass Extremities: normal range of motion, non-tender, normal inspection, no pedal edema, no calf tenderness, normal capillary refill, pelvis stable Neurologic/Psychiatric: riddler operator II-XII nml as tested, no motor/sensory deficits, alert, normal mood/affect, oriented x 3 Skin: normal color, warm/dry, no rash Lymphatic: no adenopathy Laboratory Results Last 24 Hours Test 10/28/17 22:54 10/29/17 04:15 10/29/17 10:37 Troponin I < 0.015 ng/ml < 0.015 ng/ml < 0.015 ng/ml White Blood Count 6.57 K/uL Red Blood Count 4.68 M/uL Hemoglobin 12.1 g/dL Hematocrit 39.4 % Mean Corpuscular Volume 84.2 fL Mean Corpuscular Hemoglobin 25.9 pg Mean Corpuscular Hemoglobin Concent 30.7 g/dl Platelet Count 257 K/uL Mean Platelet Volume 10.9 fL Neutrophils (%) (Auto) 75.1 % Lymphocytes (%) (Auto) 18.0 % Monocytes (%) (Auto) 6.4 % Eosinophils (%) (Auto) 0.0 % Basophils (%) (Auto) 0.2 % Neutrophils # (Auto) 4.94 K/uL Lymphocytes # (Auto) 1.18 K/uL Monocytes # (Auto) 0.42 K/uL Eosinophils # (Auto) 0.00 K/uL Basophils # (Auto) 0.01 K/uL RDW Standard Deviation 46.9 fL RDW Coefficient of Variation 15.5 % Immature Granulocyte % (Auto) 0.3 % Immature Granulocyte # (Auto) 0.02 K/uL Sodium Level 140 mmol/L Potassium Level 3.6 mmol/L Chloride Level 103 mmol/L Carbon Dioxide Level 28 mmol/L Anion Gap 9.0 mmol/L Blood Urea Nitrogen 25 mg/dl Creatinine 1.44 mg/dl Est Creatinine Clear Calc Drug Dose 44.5 ml/min Estimated GFR () 42.5 Estimated GFR (Non- 36.7 BUN/Creatinine Ratio 17.7 Random Glucose 125 mg/dl Estimated Average Glucose 114 mg/dl Hemoglobin A1c 5.6 % Calcium Level 8.9 mg/dl Magnesium Level 2.2 mg/dl Total Bilirubin 0.6 mg/dl Aspartate Amino Transf (AST/SGOT) 12 U/L Alanine Aminotransferase (ALT/SGPT) 18 U/L Alkaline Phosphatase 65 U/L Total Protein 7.5 gm/dl Albumin 3.6 gm/dl Globulin 3.9 gm/dl Albumin/Globulin Ratio 0.9 Triglycerides Level 117 mg/dl Cholesterol Level 267 mg/dl HDL Cholesterol 43 mg/dl LDL Cholesterol, Calculated 201 mg/dl VLDL Cholesterol, Calculated 23 mg/dl Cholesterol/HDL Ratio 6.2 Assessment and Plan 72 years old female with past medical history of hypertension, dyslipidemia, obstructive sleep apnea on CPAP, history of breast cancer and atrial flutter in 2017, admitted on October 28, 2017 because of acute respiratory failure secondary to hypertension crisis and acute CHF New onset acute respiratory failure with hypoxemia secondary to Acute on chronic diastolic congestive heart failure Acute on chronic diastolic congestive heart failure pulmonary edema secondary to below Hypertensive crisis Essential hypertension Condition is resolving. 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 Possible with underlying mild emphysema, and history of tobacco abuse quit smoking 7 years ago Incidental finding of 14 mm hypodensity within the right lobe of the liver / 22 mm hypodensity within the left lobe, possible cyst, advised patient need to follow-up with PCP Talk to precision lens generator, continue telemetry, Continue beta-marilu Continue clonidine to twice a day, continue Diovan, HbA1c was checked, which was next now 7, We will follow-up echo results, patient is 2Decho in last echo was in February 2017n am, with normal ejection fraction DVT prophylaxis covered, possible discharge patient home tomorrow Continued [facility] stay due to: other Discharge planning: home with home health
--- NOTE | 2017-10-29 16:42 | Cardiology Consultation ---
Cardiology Consultation Date of Consultation: Oct 29, 2017. Requesting Physician: Mele Reason for Consultation: Congestive heart failure Pt evaluation today including: conversation w/ patient, physical exam, chart review, lab review, review of studies, review of inpatient medication list, conversation w/ attending History of Present Illness Patient is a 72-year-old woman without a history of congestive heart failure who presented with symptoms of acute dyspnea. Patient states that she may have had a element of mild dyspnea over the past few weeks, but shortness of breath became acutely worse early Sunday morning. Patient states she was using CPAP in awoke very short of breath. She has difficulty even moving around her residence without becoming dyspneic. 911 was called and EN route the patient did undergo nebulizer treatments and eventually received a diuretic in the [facility]. Her breathing improved significantly and fairly rapid fashion. This morning she claims to be feeling well. She states that her breathing is nearly back to normal. Generally speaking she has been feeling well. She engages in routine activity without significant limitations such as breathing difficulty or chest discomfort. She has not been aware of any palpitations or racing heartbeats. She does check her blood pressure regularly and has not noted any high heart rates. She has noticed some slight increase in her blood pressure and had planned on addressing this with her primary care physician this week. She has not had dizziness or lightheadedness. She has not had any syncopal episodes. Past Medical/Surgical History Atrial flutter Obstructive sleep apnea Hypertension Breast cancer Past surgical history Breast lumpectomy Cataract Caesarean section The replacement Over ectomy Wrist surgery Hypertension Family History Diabetes mellitus Noncontributory Social History Smoking Status: Former Smoker History of Alcohol Use: Yes (socially ) Review of Systems Respiratory: + dyspnea on exertion, + problem reported No recent constitutional symptoms such as fevers or chills. Patient did recently start using CPAP at night. All Other Systems: Reviewed and Negative Allergies Coded Allergies: Pineapple (Verified Allergy, Severe, RAW PINEAPPLE-BURNING FACE, TIGHTNESS IN THROAT, 10/28/17) Statins (Verified Adverse Reaction, Intermediate, MUSCLE ACHING, 10/28/17) HMG-CoA-R Inhibitors (Verified Adverse Reaction, Mild, STATINS- MUSCLE ACHES, 10/28/17) Amlodipine (Verified Adverse Reaction, Unknown, BRADYCARDIA, 10/28/17) Amoxicillin (Verified Adverse Reaction, Unknown, nausea, 10/28/17) Ascorbate (Verified Adverse Reaction, Unknown, heart pounds, tachy and headache, 10/28/17) Aspirin (Verified Adverse Reaction, Unknown, upset stomach, 10/28/17) Beta-Carotene (Verified Adverse Reaction, Unknown, heart pounds, tachy and headache, 10/28/17) Cholecalciferol (Verified Adverse Reaction, Unknown, heart pounds, tachy and headache, 10/28/17) Clavulanic Acid (Verified Adverse Reaction, Unknown, nausea, 10/28/17) Cupric Oxide (Verified Adverse Reaction, Unknown, heart pounds, tachy and headache, 10/28/17) Diclofenac (Verified Adverse Reaction, Unknown, wobbly, 10/28/17) Docosahexaenoic Acid (DHA) (Verified Adverse Reaction, Unknown, heart pounds, tachy and headache, 10/28/17) Eicosapentaenoic Acid (EPA) (Verified Adverse Reaction, Unknown, heart pounds, tachy and headache, 10/28/17) Ezetimibe (Verified Adverse Reaction, Unknown, chills, myalgia, 10/28/17) Ferrous Bisglycinate (Verified Adverse Reaction, Unknown, heart pounds, tachy and headache, 10/28/17) Folic Acid (Verified Adverse Reaction, Unknown, heart pounds, tachy and headache, 10/28/17) Gemfibrozil (Verified Adverse Reaction, Unknown, EXTREME FATIGUE, 10/28/17) Hydrocodone (Verified Adverse Reaction, Unknown, decreased urine output, ) Iron (Verified Adverse Reaction, Unknown, heart pounds, tachy and headache , 10/28/17) Magnesium Oxide (Verified Adverse Reaction, Unknown, heart pounds, tachy and headache, 10/28/17) Olmesartan (Verified Adverse Reaction, Unknown, cough, fatigue, 10/28/17) POLLEN (Verified Adverse Reaction, Unknown, nasal congestion, 10/28/17) Pyridoxine (Verified Adverse Reaction, Unknown, heart pounds, tachy and headache, 10/28/17) Riboflavin (Verified Adverse Reaction, Unknown, heart pounds, tachy and headache, 10/28/17) Sodium Benzoate (Verified Adverse Reaction, Unknown, heart pounds, tachy and headache, 10/28/17) Telmisartan (Verified Adverse Reaction, Unknown, flu-like symptoms, ) Thiamine (Verified Adverse Reaction, Unknown, heart pounds, tachy and headache, 10/28/17) Varenicline (Verified Adverse Reaction, Unknown, headache, nausea and vivid dreams, 10/28/17) Vitamin B12 (Verified Adverse Reaction, Unknown, heart pounds, tachy and headache, 10/28/17) Vitamin E (Verified Adverse Reaction, Unknown, heart pounds, tachy and headache, 10/28/17) Zinc Oxide (Verified Adverse Reaction, Unknown, heart pounds, tachy and headache, 10/28/17) Medications Current Inpatient Medications Medications (Trade) Dose Ordered Sig/David Route Start Time Stop Time Status Last Admin Dose Admin Ioversol (Optiray 320) 100 ml UD PRN IV 10/28/17 13:30 11/01/17 13:29 Magnesium Chloride (Slow-Mag Tab) 64 mg QDB PO 10/29/17 07:30 11/28/17 07:59 10/29/17 07:56 64 MG Metoprolol Succinate (Toprol Xl Tab) 50 mg BID PO 10/28/17 21:00 11/27/17 20:59 10/29/17 07:58 50 MG Paroxetine HCl (pAXil TAB) 20 mg QAM PO 10/29/17 09:00 11/28/17 08:59 10/29/17 07:59 20 MG Heparin Sodium (Porcine) (Heparin Sq 5000 Unit/0.5ml) 5,000 unit Q8 SQ 10/28/17 22:00 11/27/17 21:59 Acetaminophen (Tylenol Tab) 650 mg Q4H PRN PO 10/28/17 16:45 11/27/17 16:44 10/28/17 18:52 650 MG Al Hydrox/Mg Hydrox/Simethicone (Maalox Max Susp) 15 ml Q4H PRN PO 10/28/17 16:45 11/27/17 16:44 Zolpidem Tartrate (Ambien Tab) 5 mg HSZ PRN PO 10/28/17 16:45 11/27/17 16:44 Nitroglycerin (Nitrostat Tab) 0.4 mg UD PRN SL 10/28/17 16:45 11/27/17 16:44 Polyethylene (Miralax Powder Packet) 17 gm DAILY PRN PO 10/28/17 16:45 11/27/17 16:44 10/29/17 08:07 17 GM Potassium Chloride (Klor-Con M10) 10 meq BID PO 10/28/17 21:00 11/27/17 20:59 10/29/17 07:59 10 MEQ Furosemide 20 mg/ Syringe 2 ml @ 4 mls/min BID17 IV 10/28/17 18:30 11/27/17 18:29 Future Hold 10/28/17 18:45 4 MLS/MIN Valsartan (Diovan Tab) 80 mg QAM PO 10/29/17 09:00 11/28/17 08:59 10/29/17 07:57 80 MG Nitroglycerin (Nitro-Dur 0.4 Mg/Hr Patch) 1 patch QAM TD 10/29/17 09:00 11/28/17 08:59 Hydralazine HCl (HydrALAZINE INJ) 20 mg Q6H PRN IV. 10/28/17 16:45 11/27/17 16:44 Clonidine HCl (Catapres Tab) 0.1 mg BID PO 10/28/17 21:00 11/28/17 08:59 10/29/17 08:00 0.1 MG Miscellaneous (Remove Nitro-Dur Patch) 1 ea DAILY@21 N/A 10/28/17 21:00 11/27/17 20:59 10/28/17 20:35 1 EA Miscellaneous Information (Order Awaiting Action) 1 ea QS N/A 10/29/17 00:00 11/28/17 00:00 Physical Exam Vital Signs Past 12 Hours Date Time Temp Pulse Resp B/P (MAP) Pulse Ox O2 Delivery O2 Flow Rate FiO2 10/29/17 08:02 36.4 62 19 178/101 (126) 91 Room Air 10/29/17 08:00 Room Air 10/29/17 04:00 92 Room Air 10/29/17 04:00 36.6 68 17 128/74 (92) 90 Room Air 10/29/17 00:25 36.9 74 16 170/84 (112) 90 Room Air 10/29/17 00:05 92 Room Air 2.0 She is alert and oriented x3. Mood affect appear normal. She answered all questions appropriately. HEENT: Sclerae are anicteric. Pupils are equal and reactive to light and accommodation. Extraocular movements were intact. Neuro: Cranial nerves intact Neck: Examination of the submandibular region did not reveal any significant lymphadenopathy. Carotids are palpable bilaterally and free of bruits on auscultation. There was no evidence of jugular venous distention. The thyroid was not enlarged. Lungs: Lungs are clear to auscultation bilaterally. There are no rales wheezes or rhonchi. She has normal respiratory effort without use of accessory muscles. There is normal pulmonary excursion. Cardiac: The rhythm was regular. S1 and S2 were normal. There are no murmurs on examination. The PMI was not markedly displaced on palpation. Abdomen: The abdomen was soft and nontender. Extremities: Patient has bilateral radial pulses that are equal in intensity. There is no evidence cyanosis or clubbing. There was no evidence of significant peripheral edema bilaterally. Skin: There are no rashes noted on examination today. Data Laboratory Results: Last 24 Hours Test 10/28/17 11:33 10/28/17 11:50 10/28/17 12:33 10/28/17 22:54 White Blood Count 6.92 K/uL Red Blood Count 4.75 M/uL Hemoglobin 12.9 g/dL Hematocrit 40.4 % Mean Corpuscular Volume 85.1 fL Mean Corpuscular Hemoglobin 27.2 pg Mean Corpuscular Hemoglobin Concent 31.9 g/dl Platelet Count 222 K/uL Mean Platelet Volume 10.6 fL Neutrophils (%) (Auto) 62.7 % Lymphocytes (%) (Auto) 27.0 % Monocytes (%) (Auto) 8.5 % Eosinophils (%) (Auto) 1.2 % Basophils (%) (Auto) 0.3 % Neutrophils # (Auto) 4.34 K/uL Lymphocytes # (Auto) 1.87 K/uL Monocytes # (Auto) 0.59 K/uL Eosinophils # (Auto) 0.08 K/uL Basophils # (Auto) 0.02 K/uL RDW Standard Deviation 47.3 fL RDW Coefficient of Variation 15.3 % Immature Granulocyte % (Auto) 0.3 % Immature Granulocyte # (Auto) 0.02 K/uL Prothrombin Time 10.5 SECONDS Prothromb Time International Ratio 1.0 Sodium Level 142 mmol/L Potassium Level 3.5 mmol/L Chloride Level 106 mmol/L Carbon Dioxide Level 24 mmol/L Anion Gap 12.0 mmol/L Blood Urea Nitrogen 15 mg/dl Creatinine 0.98 mg/dl Est Creatinine Clear Calc Drug Dose 65.4 ml/min Estimated GFR () 67.7 Estimated GFR (Non- 58.4 BUN/Creatinine Ratio 15.7 Random Glucose 114 mg/dl Calcium Level 8.8 mg/dl Total Bilirubin 0.6 mg/dl Direct Bilirubin 0.1 mg/dl Aspartate Amino Transf (AST/SGOT) 16 U/L Alanine Aminotransferase (ALT/SGPT) 21 U/L Alkaline Phosphatase 71 U/L Troponin I < 0.015 ng/ml < 0.015 ng/ml Pro-B-Type Natriuretic Peptide 2824 pg/ml Total Protein 7.8 gm/dl Albumin 3.6 gm/dl Lipase 167 U/L Influenza Type A Antigen Neg for Influ A Influenza Type B Antigen Neg for Influ B Venous Blood pH 7.38 Venous Blood Partial Pressure CO2 50 mmHg Venous Blood Partial Pressure O2 28 mmHg Venous Blood HCO3 29 mmol/L Venous Blood Oxygen Saturation < 60.0 % Venous Blood Base Excess 2.8 mEq/L Lactic Acid Level 1.5 mmol/L Test 10/29/17 04:15 10/29/17 10:37 White Blood Count 6.57 K/uL Red Blood Count 4.68 M/uL Hemoglobin 12.1 g/dL Hematocrit 39.4 % Mean Corpuscular Volume 84.2 fL Mean Corpuscular Hemoglobin 25.9 pg Mean Corpuscular Hemoglobin Concent 30.7 g/dl Platelet Count 257 K/uL Mean Platelet Volume 10.9 fL Neutrophils (%) (Auto) 75.1 % Lymphocytes (%) (Auto) 18.0 % Monocytes (%) (Auto) 6.4 % Eosinophils (%) (Auto) 0.0 % Basophils (%) (Auto) 0.2 % Neutrophils # (Auto) 4.94 K/uL Lymphocytes # (Auto) 1.18 K/uL Monocytes # (Auto) 0.42 K/uL Eosinophils # (Auto) 0.00 K/uL Basophils # (Auto) 0.01 K/uL RDW Standard Deviation 46.9 fL RDW Coefficient of Variation 15.5 % Immature Granulocyte % (Auto) 0.3 % Immature Granulocyte # (Auto) 0.02 K/uL Sodium Level 140 mmol/L Potassium Level 3.6 mmol/L Chloride Level 103 mmol/L Carbon Dioxide Level 28 mmol/L Anion Gap 9.0 mmol/L Blood Urea Nitrogen 25 mg/dl Creatinine 1.44 mg/dl Est Creatinine Clear Calc Drug Dose 44.5 ml/min Estimated GFR () 42.5 Estimated GFR (Non- 36.7 BUN/Creatinine Ratio 17.7 Random Glucose 125 mg/dl Estimated Average Glucose 114 mg/dl Hemoglobin A1c 5.6 % Calcium Level 8.9 mg/dl Magnesium Level 2.2 mg/dl Total Bilirubin 0.6 mg/dl Aspartate Amino Transf (AST/SGOT) 12 U/L Alanine Aminotransferase (ALT/SGPT) 18 U/L Alkaline Phosphatase 65 U/L Troponin I < 0.015 ng/ml Total Protein 7.5 gm/dl Albumin 3.6 gm/dl Globulin 3.9 gm/dl Albumin/Globulin Ratio 0.9 Triglycerides Level 117 mg/dl Cholesterol Level 267 mg/dl HDL Cholesterol 43 mg/dl LDL Cholesterol, Calculated 201 mg/dl VLDL Cholesterol, Calculated 23 mg/dl Cholesterol/HDL Ratio 6.2 Imaging: CT PE protocol did not reveal any evidence of pulmonary embolus. There was some evidence of pulmonary edema and emphysema EKG: Normal sinus rhythm Telemetry reviewed: Normal sinus rhythm. No atrial flutter Echocardiogram performed February 2017: Mild LVH. Preserved LV systolic function. Mitral annular calcification. Assessment & Plan 1. Acute decompensated diastolic heart failure: Patient likely had a decompensation related to high blood pressures. She did have chest pain and there is no evidence of ischemia. She has also not had any documented recurrence of atrial flutter high heart rates. Her symptoms presented quite suddenly suggesting flash pulmonary edema. She responded quite well to diuresis. Her symptoms have nearly resolved breathing is almost back to normal. I suggest repeating an echocardiogram in order to make sure there is no worsening LV systolic function given her symptoms. 2. Hypertension: This is most likely explanation for decompensation. Her antihypertensive regimen has been intensified. Addition of a daily diuretic may be of benefit. Her renal function has worsened with aggressive diuresis but may stabilize and allow for daily diuretic therapy, perhaps in the form of hydrochlorothiazide. 3. Atrial flutter: No recurrence. Not currently on anticoagulation due to her use of nonsteroidals and absence of recurrence. While she does not have a loop recorder implanted she does monitor her blood pressure quite often. I am confident that she would have significant elevated ventricular rates if she were and flutter. She is not likely to have paroxysmal atrial flutter and I think we could identify any recurrence.
--- NOTE | 2017-10-29 17:25 | ECHOCARDIOGRAM REPORT ---
*NOTICE TO RECEIVING [employer] This information is strictly Confidential and protected under [place] law. [place] law prohibits you from making any further disclosure of this information unless further disclosure is expressly permitted by the written consent of the person to whom it pertains or is authorized by law. A general authorization for the release of medical or other information is not sufficient for this purpose. Hospital accepts no responsibility if the information is made available to any other person, INCLUDING THE PATIENT. Interpretation Summary * Name: BORA VASQUEZ Study Date: 10/29/2017 01:15 PM BP: 152/76 mmHg * Patient Location: C.2T\S\S234\S\1 HR: 67 * : 1945 (M/d/yy) Gender: Female Height: 66 in * Age: 72 yrs Ethnicity: CA Weight: 231 lb * Ordering Physician: John Montalvo * Referring Physician: Self, Referred * Performed By: Catie Sorenson RDCS * * Reason For Study: CHF * BSA: 2.1 m2 * -- Conclusions -- * 1. Normal LV size. Moderate concentric LVH. * 2. Normal LV systolic function. LVEF 60-65%. No regional wall motion abnormalities. * 3. Normal RV size and function. * 4. Trace MR, trace TR * 5. Grade 2 diastolic dysfunction * 6. Compared with prior study on 02/18/2017: No significant change Procedure Details * A contrast injection of Definity was performed to improve assessment of LV function. * Contrast was injected into an intravenous site in the left arm. * One vial of Definity ultrasound contrast was diluted in normal saline to a total volume of 10 ml. A total of '2' ml of solution was administered during imaging. * Lot # [id number] of Definity utilized for procedure. * Expiration date 1 OCT 08. * The attending nurse who injected the contrast agent was CRISTHIAN BROWNING RN. Left Ventricle * The left ventricle is grossly normal size. * There is moderate concentric left ventricular hypertrophy. * Ejection Fraction = 55-60%. * No regional wall motion abnormalities noted. Right Ventricle * The right ventricle is grossly normal size. * The right ventricular systolic function is normal as assessed by tricuspid annular plane systolic excursion (TAPSE) (normal >1.5 cm). Atria * The left atrium is severely dilated. * Right atrial size is normal. * No ASD detected; PFO is not assessed. Mitral Valve * There is mild mitral annular calcification. * There is no mitral valve stenosis. * There is trace mitral regurgitation. Tricuspid Valve * The tricuspid valve is not well visualized, but is grossly normal. * There is no tricuspid stenosis. * There is trace tricuspid regurgitation. Aortic Valve * The aortic valve is normal in structure and function. * The aortic valve is trileaflet. * Aortic stenosis is absent. * There is no significant aortic regurgitation. Pulmonic Valve * The pulmonary valve is inadequately visualized, but the Doppler data is adequate for interpretation. * Pulmonic stenosis is absent. * Trace pulmonic valvular regurgitation. Great Vessels * The aortic root and proximal ascending aorta are normal sized. Pericardium/Pleural * There is no pericardial effusion. Great Vessels * Normal inferior vena cava size and collapsability with sniff indicates a normal right atrial pressure of 3 mmHg Left Ventricular Diastolic Function * Diastolic dysfunction, Grade II (pseudonormalization pattern). MMode 2D Measurements and Calculations IVSd 1.4 cm IVSs 2.1 cm LVIDd 5.3 cm LVIDs 3.6 cm LVPWd 1.8 cm LVPWs 2.0 cm IVS/LVPW 0.75 FS 31.6 % EDV(Teich) 133.3 ml ESV(Teich) 54.5 ml EF(Teich) 59.1 % EDV(cubed) 145.9 ml ESV(cubed) 46.7 ml EF(cubed) 68.0 % % IVS thick 55.1 % % LVPW thick 10.6 % LV mass(C)d 385.5 grams LV mass(C)dI 181.3 grams/m\S\2 LV mass(C)s 350.8 grams LV mass(C)sI 165.0 grams/m\S\2 SV(Teich) 78.8 ml SI(Teich) 37.0 ml/m\S\2 SV(cubed) 99.2 ml SI(cubed) 46.6 ml/m\S\2 LA dimension 4.5 cm LVAd ap4 36.8 cm\S\2 LVLd ap4 8.5 cm EDV(MOD-sp4) 129.6 ml EDV(sp4-el) 134.3 ml LVAs ap4 23.2 cm\S\2 LVLs ap4 7.6 cm ESV(MOD-sp4) 55.6 ml ESV(sp4-el) 59.9 ml EF(MOD-sp4) 57.1 % EF(sp4-el) 55.4 % LVAd ap2 32.4 cm\S\2 LVLd ap2 8.3 cm EDV(MOD-sp2) 107.6 ml EDV(sp2-el) 107.8 ml LVAs ap2 18.9 cm\S\2 LVLs ap2 7.1 cm ESV(MOD-sp2) 38.8 ml ESV(sp2-el) 42.2 ml EF(MOD-sp2) 64.0 % EF(sp2-el) 60.8 % LVLd %diff -3.24 % EDV(MOD-bp) 121.0 ml LVLs %diff -6.60 % ESV(MOD-bp) 47.4 ml EF(MOD-bp) 60.8 % SV(MOD-sp4) 74.0 ml SI(MOD-sp4) 34.8 ml/m\S\2 SV(MOD-sp2) 68.8 ml SI(MOD-sp2) 32.4 ml/m\S\2 SV(MOD-bp) 73.6 ml SI(MOD-bp) 34.6 ml/m\S\2 SV(sp4-el) 74.4 ml SI(sp4-el) 35.0 ml/m\S\2 SV(sp2-el) 65.6 ml SI(sp2-el) 30.8 ml/m\S\2 Doppler Measurements and Calculations MV E max trisha 105.3 cm/sec MV A max trisha 36.9 cm/sec MV E/A 2.9 MV dec time 0.31 sec Ao V2 max 141.2 cm/sec Ao max PG 8.0 mmHg Ao max PG (full) 5.6 mmHg LV V1 max PG 2.3 mmHg LV V1 max 76.6 cm/sec
[2017-10-30 04:05] VITALS: BP 167/81; PULSE 60; TEMP 36.9; O2SAT 90
[2017-10-30] MEDS: HEPARIN SOD 5000 UNIT/0.5 ML CARP SQ SCH (04:20)
[2017-10-30 07:24] VITALS: BP 138/53; PULSE 64; TEMP 36.9; O2SAT 92
[2017-10-30 08:00] VITALS: O2SAT 95
[2017-10-30] MEDS: MAGNESIUM CHLORIDE 64MG DELAYED REL TAB PO SCH (08:22)
[2017-10-30] MEDS: VALSARTAN 80 MG TAB PO SCH (08:23)
[2017-10-30] MEDS: CLONIDINE HCL 0.1 MG TAB PO SCH (08:23)
[2017-10-30] MEDS: PAROXETINE 20 MG TAB PO SCH (08:24)
[2017-10-30] MEDS: METOPROLOL SUCC 50MG EXT REL TAB PO SCH (08:24)
[2017-10-30] MEDS: POTASSIUM CHLORIDE 10 MEQ TABCR PO SCH (08:24)
[2017-10-30] MEDS: NITROGLYCERIN 0.4 MG/HR PATCH TD SCH (08:26)
[2017-10-30] MEDS: POLYETHYLENE (MIRALAX) 17 GM PACK PO PRN (08:34)
[2017-10-30] MEDS ORDERED: CTP1 PO (10:25)
[2017-10-30] MEDS ORDERED: DVN80 PO (10:25)
--- NOTE | 2017-10-30 10:30 | Discharge Instructions ---
Discharge Instructions Date of Service Oct 30, 2017. Admission Reason for Admission: Acute Respiratory Failure With Hypoxemia Discharge Discharge Diagnosis / Problem: acute decompensated diastolic heart failure Discharge Goals Goal(s): Decrease discomfort, Improve function, Increase independence, Improve disease control, Improve nutritional status, Learn about illness, Diagnostic testing, Therapeutic intervention, Prevent Disease Progression, Specific goals Activity Recommendations Activity Limitations: resume your previous activity . Instructions / Follow-Up Instructions / Follow-Up you have acute decompensated diastolic heart failure you have Hypertension crisis: I am increase Clonidine 0.1mg to twice daily,, and you you new medicine of Losartan, which may have side effect of cough, you can follow up with pcp abotu this, you may also benefit from new medicine of hydrochlorothiazide, please follow up with pcp or oyster culturist about this you have acute kidney injury , which is better, but you need to have labs of renal function checked in the follow up visit with pcp in 1 week you have hx of Atrial flutter: No recurrence, need to follow up with pcp. - you need to follow up with your primary care physician in 1 week, - take medication as instructed, never overdose or any misuse, or take with alcohol, because misuse of medicine may cause organ damage or , call your primary care physician if have questions of medicaitons. - call your primary care physician OR go to local emergency room if has any fever/chill, chest pain, shortness of breathing, nausea/vomiting/abdominal pain , facial droop/slurry speech/local weakness, or if has any questions. - fall precaution - diet as instructed - you need to follow up with your subspecialist, such as oyster culturist in 2-3 weeks I have sent your new medicine to you pharmacy Current Hospital Diet Patient's current hospital diet: AHA Diet (Heart Healthy) Discharge Diet Recommended Diet: AHA Diet (Heart Healthy) Procedures Procedures Performed: no Pending Studies Studies pending at discharge: no Laboratory Results Hemoglobin A1c Test 10/29/17 04:15 Range/Units Estimated Average Glucose 114 mg/dl Hemoglobin A1c 5.6 4.5-5.6 % Lipid Panel Test 10/29/17 04:15 Range/Units Triglycerides Level 117 0-150 mg/dl Cholesterol Level 267 H 0-200 mg/dl HDL Cholesterol 43 mg/dl Cholesterol/HDL Ratio 6.2 LDL Cholesterol, Calculated 201 mg/dl Medical Emergencies . Who to Call and When: Medical Emergencies: If at any time you feel your situation is an emergency, please call 911 immediately. . Non-Emergent Contact Non-Emergency issues call your: Primary Care Provider, Electrical Instrument Technician . . "Provider Documentation" section prepared by Tulio Del Cid. .
[2017-10-30 11:42] LABS: CALCIUM 9.2 mg/dl (8.5-10.1); CREATININE 1.22 mg/dl (0.60-1.20); POTASSIUM 3.5 mmol/L (3.5-5.1)
[2017-10-30 12:00] VITALS: O2SAT 95
[2017-10-30 12:12] VITALS: BP 150/83; PULSE 68; TEMP 36.9; O2SAT 94
--- NOTE | 2017-10-30 13:06 | Discharge Summary ---
Discharge Summary Date of Service Oct 30, 2017. Discharge Summary Admission Date: Oct 28, 2017 at 16:38 Discharge Date: Oct 30, 2017 Discharge Disposition: Home Principal Diagnosis: acute decompensated diastolic heart failure Problems/Secondary Diagnoses: Hypertension crisis acute kidney injury hx of Atrial flutter Immunizations: Have You Had Influenza Vaccine: Yes History of Tetanus Vaccine?: UTD History of Pneumococcal: Yes History of Hepatitis B Vaccine: Yes Procedures: No Consultations: Software Architect Medication Reconciliation New Medications: Clonidine HCl (Clonidine HCl) 0.1 Mg Tab 0.1 MG PO BID for 30 Days, #60 TAB hold when sbP<100, DBP<60 Valsartan (Diovan) 80 Mg Tab 80 MG PO QAM for 30 Days, #30 TAB Continued Medications: Cholecalciferol (Vitamin D3) 2,000 Unit Tab 2000 INTUNIT PO QAM Magnesium Chloride (Slow-Mag Tab) 64 Mg Tabcr 64 MG PO QDB, TAB Metoprolol Succ (Toprol Xl) (Toprol-Xl) 50 Mg Tabcr 50 MG PO BID Paroxetine (Paxil) 20 Mg Tab 20 MG PO QAM Polyethylene Glycol 3350 (Bulk (Polyethylene Glycol 3350) 1 Pow Pow 17 GM PO QAM for 30 Days, #527 GM 11 Refills Discontinued Medications: Clonidine Hcl (Catapres) 0.1 Mg Tab 0.1 MG PO QAM Oxaprozin (Daypro) 600 Mg Tab 600 MG PO BID Discharge Exam Out of bed to chair, doing well, denies shortness of breath palpitation, denied lower extremity swelling, Review of Systems: Constitutional: No fever, No chills, No sweats, No weight loss, No weakness , No fatigue, No problem reported Eyes: No worsening of vision, No eye pain, No redness, No discharge, No diplopia, No problem reported ENT: No hearing loss, No unusual epistaxis, No nasal symptoms, No sore throat, No tinnitus, No dental problems, No trouble swallowing, No problem reported Respiratory: No cough, No sputum, No wheezing, No shortness of breath, No dyspnea on exertion, No dyspnea at rest, No hemoptysis, No problem reported Cardiovascular: No chest pain, No orthopnea, No PND, No edema, No claudication, No palpitations, No problem reported Abdomen: No pain, No nausea, No vomiting, No diarrhea, No constipation, No GI bleeding, No problem reported Musculoskeletal: No joint pain, No muscle pain, No swelling, No calf pain, No problem reported Genitourinary - Female: No dysuria, No urinary frequency, No urinary urgency , No urinary incontinence, No urinary retention, No hematuria, No dysmenorrhea, No menorrhagia, No metrorrhagia, No rash, No vaginal bleeding, No vaginal discharge, No vaginal itching, No vulvodynia, No , No problem reported Neurologic: No memory loss, No paralysis, No weakness, No numbness/tingling , No vertigo, No balance problems, No problem reported Psychiatric: No depression symptoms, No anhedonism, No anxiety, No insomnia , No substance abuse, No problem reported Endocrine: No fatigue, No excessive thirst, No excessive urination, No problem reported Hematologic / Lymphatic: No abnormal bleeding/bruising, No clotting problems , No swollen lymph nodes, No night sweats, No problem reported Integumentary: No rash, No itch, No new/changing skin lesions, No color change, No bleeding, No problem reported Physical Exam: General Appearance: WD/WN, no apparent distress Eyes: normal inspection, PERRL, EOMI ENT: normal ENT inspection, hearing grossly normal, TMs normal Neck: supple, no adenopathy Respiratory/Chest: lungs clear, normal breath sounds, no respiratory distress, no accessory muscle use Cardiovascular: regular rate, rhythm, no edema, no gallop, no JVD, no murmur , normal peripheral pulses Abdomen / GI: normal bowel sounds, non tender, soft, no organomegaly, no pulsatile mass Extremities: normal inspection, no calf tenderness, normal capillary refill , no pedal edema, normal range of motion Neurologic/Psychiatric: 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, no motor/sensory deficits , alert, normal mood/affect, normal reflexes, oriented x 3 Skin: normal color, warm/dry, no rash Hospital Course 72 years old female with past medical history of hypertension, dyslipidemia, obstructive sleep apnea on CPAP, history of breast cancer and atrial flutter in 2017, admitted on October 28, 2017 because of acute respiratory failure secondary to hypertension crisis and acute CHF New onset acute respiratory failure with hypoxemia secondary to Acute on chronic diastolic congestive heart failure, improvement and resolved Acute on chronic diastolic congestive heart failure, stable and improved pulmonary edema secondary to acute on chronic diastolic CHF exacerbation, improved Hypertensive crisis, improved Essential hypertension, stable, for Hypertension crisis: I am increase Clonidine 0.1mg to twice daily, and you you new medicine of Losartan, which may have side effect of cough, you can follow up with pcp abotu this, you may also benefit from new medicine of hydrochlorothiazide, please follow up with pcp or orthodontic treatment coordinator about this acute kidney injury, kidney function is improved in today's lab, Cr 1.2 from 1.4 , but you need to have labs of renal function checked in the follow up visit with pcp in 1 week Dyslipidemia , did not tolerate statin History of atrial flutter, currently off Xarelto as she required anti- inflammatory drug for her joints, per note from orthodontic treatment coordinator do not believe pt need to be on anticoagulation for now Obstructive sleep apnea on CPAP 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 Normal LV size. Moderate concentric LVH. * 2. Normal LV systolic function. LVEF 60-65%. No regional wall motion abnormalities. * 3. Normal RV size and function. * 4. Trace MR, trace TR * 5. Grade 2 diastolic dysfunction * 6. Compared with prior study on 02/18/2017: No significant change DVT prophylaxis covered, possible discharge patient home Instructions / Follow-Up you have acute decompensated diastolic heart failure you have Hypertension crisis: I am increase Clonidine 0.1mg to twice daily,, and you you new medicine of Losartan, which may have side effect of cough, you can follow up with pcp abotu this, you may also benefit from new medicine of hydrochlorothiazide, please follow up with pcp or orthodontic treatment coordinator about this you have acute kidney injury , which is better, but you need to have labs of renal function checked in the follow up visit with pcp in 1 week you have hx of Atrial flutter: No recurrence, need to follow up with pcp. - you need to follow up with your primary care physician in 1 week, - take medication as instructed, never overdose or any misuse, or take with alcohol, because misuse of medicine may cause organ damage or , call your primary care physician if have questions of medicaitons. - call your primary care physician OR go to local emergency room if has any fever/chill, chest pain, shortness of breathing, nausea/vomiting/abdominal pain , facial droop/slurry speech/local weakness, or if has any questions. - fall precaution - diet as instructed - you need to follow up with your subspecialist, such as orthodontic treatment coordinator in 2-3 weeks I have sent your new medicine to you pharmacy Total Time Spent: Greater than 30 minutes This includes examination of the patient, discharge planning, medication reconciliation, and communication with other providers. Discharge Instructions Please refer to the electronic Patient Visit Report (Discharge Instructions) for additional information.
== END 2017-10-30 14:03 | disposition home or self-care (01) | DRG 291 ==
LOC: EDBD 11:10 → C.EDB 11:12 → C.2T 16:38 → ENRESERV 17:06
PROVIDERS: ADMIT Internal Medicine; ATTEND Hospitalist
DX: I13.0 Hypertensive heart and chronic kidney disease with heart failure and stage 1 through stage 4 chronic kidney disease, or unspecified chronic kidney disease (principal); I50.33 Acute on chronic diastolic (congestive) heart failure; J96.01 Acute respiratory failure with hypoxia; I16.9 Hypertensive crisis, unspecified; N17.9 Acute kidney failure, unspecified; N18.3 Chronic kidney disease, stage 3 (moderate); G47.33 Obstructive sleep apnea (adult) (pediatric); M19.90 Unspecified osteoarthritis, unspecified site; E66.9 Obesity, unspecified; Z79.899 Other long term (current) drug therapy; Z79.1 Long term (current) use of non-steroidal anti-inflammatories (NSAID); Z86.79 Personal history of other diseases of the circulatory system; Z85.3 Personal history of malignant neoplasm of breast; Z68.37 Body mass index [BMI] 37.0-37.9, adult; Z87.891 Personal history of nicotine dependence; Z88.8 Allergy status to other drugs, medicaments and biological substances; Z88.0 Allergy status to penicillin; Z88.6 Allergy status to analgesic agent; Z91.018 Allergy to other foods; Z91.048 Other nonmedicinal substance allergy status; Z83.3 Family history of diabetes mellitus

== ENCOUNTER → 2018-01-02 | Outpatient (CLI) | payer OTHER ==
[~2018-01-02] MED LIST changes: -APIX1TAB3 PO; -CLON0.1T12 PO; +CTP1 PO; -DOCU100C31 PO; +DVN80 PO; -MAGN1SOL7 PO; -METO50TA16 PO; +METO50TA8 PO; -SENN-65 PO; -TRAM-10 PO
--- NOTE | 2018-01-02 14:15 | DIAGNOSTIC IMAGING REPORT ---
(CHEST) THORAX WITHOUT CLINICAL HISTORY: Pulmonary nodules COMPARISON STUDY: CT scan dated 10/28/2017 , CT scan dated 01/05/2017 CT DOSE: 529.46 mGycm TECHNIQUE: CT of the thorax was performed from the thoracic inlet to the lung bases. Images are reviewed in the axial, sagittal, and coronal planes. IV contrast was not administered for this examination. A dose lowering technique was utilized adhering to the principles of ALARA. FINDINGS: Thyroid: Imaged portions of the thyroid gland are normal in appearance. Thoracic aorta: The thoracic aorta is normal in course and caliber, noting standard 3 vessel arch anatomy. Heart: The heart is enlarged with minor coronary artery calcifications. Lungs and pleural spaces: There are no pleural effusions. There is a stable solid 8 mm left lower lobe pulmonary nodule. Additional tiny punctate bony nodules remain stable. There is pulmonary emphysema. Mediastinum: There is no mediastinal lymphadenopathy. Mandy: There is no evidence of pathologic hilar adenopathy given the limitations of a noncontrast study Axilla: There is no evidence of pathologic axillary lymphadenopathy Upper abdomen: There are stable hepatic hypodensities likely representing cysts Skeletal structures: There are no lytic or blastic osseous lesions. IMPRESSION: 1. Emphysema 2. Bilateral subcentimeter pulmonary nodules, the largest of which measures 8 mm remain stable. 3. No evidence of pathologic adenopathy. Electronically signed by: Bill Campbell M.D. 01/02/2018 2:14 PM Dictated Date/Time: 01/02/2018 2:08 PM
== END | disposition home or self-care (01) ==
LOC: C.CTS 13:56
PROVIDERS: ATTEND Family Medicine
DX: Z87.898 Personal history of other specified conditions (principal); R91.8 Other nonspecific abnormal finding of lung field; J43.9 Emphysema, unspecified